=== PATIENT | female | born 1950 | race Caucasian/White ===

== ENCOUNTER → 2017-03-28 | Outpatient (CLI) | payer OTHER ==
[~2017-03-28] MED LIST: ACTEMRA IV; ALPR.5; ALPR.5 PO; ALPR1 PO; AMIT25; CELE200 PO; CEPH500 PO; CLON.5 PO; CONEST.625; CONEST.625 PO; CONESTTC VAG; CYAN1000 IM; CYAN1000I IM; Clonazepam1 MG PO; DESV50 PO; EVOXAC PO; FOLI1; FOLI1 PO; FOLI400 PO; IBUP200 PO; LAMO100 PO; LEVSOD100 PO; LEVSOD50 PO; METPRE4DP PO; METTREX2.5; METTREX2.5 PO; OMEP20ER PO; ORENCIA INJ; PROM25; PYRI100 INJ; QUET100 PO; QUET300 PO; SOLI5 PO; TRAM50; TRAM50 PO; VENL75ER; Vibramycin100 MG PO
== END | disposition home or self-care (01) ==
LOC: PLD 08:04 → LAB SHORT 08:04
DX: L73.9 Follicular disorder, unspecified (principal)
CPT/HCPCS: 88305; 88312

== ENCOUNTER → 2017-05-14 | Outpatient (CLI) | payer OTHER | END | disposition home or self-care (01) | LOC: LAB SHORT 08:14 → PLD 08:14 | DX: D48.5 Neoplasm of uncertain behavior of skin (principal) | CPT/HCPCS: 88305 ==

== ENCOUNTER → 2017-11-26 | Outpatient (CLI) | payer OTHER | LOC: PLD 13:38 → LAB SHORT 13:38 | DX: D48.5 Neoplasm of uncertain behavior of skin (principal) | CPT/HCPCS: 88305 ==

== ENCOUNTER → 2018-10-09 | Outpatient (CLI) | payer OTHER | END | disposition home or self-care (01) | LOC: PLD 08:22 → LAB SHORT 08:22 | DX: D48.5 Neoplasm of uncertain behavior of skin (principal) | CPT/HCPCS: 88305 ==

== ENCOUNTER → 2019-04-14 | Outpatient (CLI) | payer OTHER | END | disposition home or self-care (01) | LOC: PLD 16:00 → LAB SHORT 16:00 | DX: L72.9 Follicular cyst of the skin and subcutaneous tissue, unspecified (principal) | CPT/HCPCS: 88305 ==

== ENCOUNTER → 2019-04-28 | Outpatient (CLI) | payer OTHER | END | disposition home or self-care (01) | LOC: PLD 08:46 → LAB SHORT 08:46 | DX: L57.8 Other skin changes due to chronic exposure to nonionizing radiation (principal) | CPT/HCPCS: 88305 ==

== ENCOUNTER 2019-05-18 18:21 | Inpatient (IN) | payer OTHER ==
[~2019-05-18] VITALS: Ht 160 cm; Wt 54.9 kg
[2019-05-18 18:59] LABS: BASOPHILS ABSOLUTE AUTO 0.04 K/mm3 (0.00-0.23); BASOPHILS PERCENT AUTO 0 % (0-2); EOSINOPHILS ABSOLUTE AUTO 0.09 K/mm3 (0.00-0.68); EOSINOPHILS PERCENT AUTO 1 % (0-6); Hematocrit 40.5 % (33.0-51.0); IMMATURE GRAN ABSOLUTE AUTO 0.04 K/mm3 (0.00-0.10); IMMATURE GRAN PERCENT AUTO 0 % (0-1); LYMPHOCYTES ABSOLUTE AUTO 2.11 K/mm3 (0.84-5.20); LYMPHOCYTES PERCENT AUTO 16 % (21-46); MONOCYTES ABSOLUTE AUTO 1.04 K/mm3 (0.16-1.47); MONOCYTES PERCENT AUTO 8 % (4-13); Mean Corpuscular HGB 32.4 pg (26.0-34.0); Mean Corpuscular HGB Conc 34.6 g/dL (31.5-36.5); Mean Corpuscular Volume 94 fL (80-100); Mean Platelet Volume 9.9 fL (9.1-12.4); NEUTROPHILS ABSOLUTE AUTO 10.32 K/mm3 (1.96-9.15); NEUTROPHILS PERCENT AUTO 76 % (41-73); Platelet Count 274 K/mm3 (150-400); RDW Standard Deviation 41.7 fL (35.1-46.3); Red Blood Cell Count 4.32 M/mm3 (3.80-5.20); White Blood Cell Count 13.64 K/mm3 (4.00-11.30)
[2019-05-18] MEDS ORDERED: CELEBREX200 MG PO (19:06)
[2019-05-18] MEDS ORDERED: QUETIAPINE FUM300 MG PO (19:08)
[2019-05-18] MEDS ORDERED: FOLI1 PO (19:09)
[2019-05-18] MEDS ORDERED: ARMODAFINIL250 MG PO (19:09)
[2019-05-18] MEDS ORDERED: LEUC5 PO (19:09)
[2019-05-18] MEDS ORDERED: CLONAZEPAM1 MG PO (19:09)
[2019-05-18] MEDS ORDERED: LEVSOD50 PO (19:10)
[2019-05-18] MEDS ORDERED: TIOT18 INH (19:11)
[2019-05-18 19:20] LABS: Alanine Aminotransfer (ALT/SGP 18 U/L (12-78); Albumin, Blood 3.8 g/dL (3.4-5.0); Albumin/Globulin Ratio 1.2 (0.8-1.8); Alk Phos 120 U/L (50-136); Anion Gap 7 mmol/L (6-16); Aspartate Aminotrans (AST/SGOT 17 U/L (12-37); Bilirubin, Total 0.7 mg/dL (0.1-1.0); Blood Urea Nitrogen 10 mg/dL (8-24); Bun/Creatinine Ratio 18.1 (12.0-20.0); CO2, Blood 24 mmol/L (21-32); Calcium, Blood 9.4 mg/dL (8.5-10.1); Chloride, Blood 99 mmol/L (98-108); Creatinine, Blood 0.55 mg/dL (0.40-1.00); Globulin, Blood 3.3 g/dL (2.2-4.0); Glomerular Filtration Rate >60 (60-); Glucose, Blood 98 mg/dL (70-99); Sodium, Blood 130 mmol/L (136-145); Total Protein, Blood 7.1 g/dL (6.4-8.2)
[2019-05-18 19:28] LABS: International Normalized Ratio 0.96; Prothrombin Time Results 10.3 Sec (9.7-11.5)
[2019-05-18 20:18] LABS: Source, Urine Clean Catch
[2019-05-18 20:22] LABS: Bilirubin, Urine Neg (Neg); Blood, Urine Neg (Neg); Glucose Qualitative, Urine Neg (Neg); Ketones, Urine 2+ (Neg); Leukocyte Esterase, Urine 2+ (Neg); Nitrite, Urine Neg (Neg); Protein, Urine Neg (Neg); Urobilinogen, Urine NORM (Normal)
[2019-05-18 20:28] LABS: Appearance, Urine Clear (Clear); Color, Urine Yellow (P-Yellow)
[2019-05-18 20:32] LABS: Bacteria Few /hpf; Red Blood Cells, Urine 0-2 /hpf (0-2); Squamous Epithelial Cells Few /hpf (Few)
[2019-05-19 03:54] LABS: BASOPHILS ABSOLUTE AUTO 0.03 K/mm3 (0.00-0.23); BASOPHILS PERCENT AUTO 0 % (0-2); EOSINOPHILS PERCENT AUTO 0 % (0-6); Hematocrit 42.2 % (33.0-51.0); Hemoglobin 13.9 g/dL (11.5-16.0); IMMATURE GRAN ABSOLUTE AUTO 0.04 K/mm3 (0.00-0.10); IMMATURE GRAN PERCENT AUTO 0 % (0-1); LYMPHOCYTES ABSOLUTE AUTO 0.49 K/mm3 (0.84-5.20); LYMPHOCYTES PERCENT AUTO 3 % (21-46); MONOCYTES PERCENT AUTO 4 % (4-13); Mean Corpuscular HGB 31.9 pg (26.0-34.0); Mean Corpuscular HGB Conc 32.9 g/dL (31.5-36.5); Mean Platelet Volume 9.6 fL (9.1-12.4); NEUTROPHILS ABSOLUTE AUTO 16.89 K/mm3 (1.96-9.15); NEUTROPHILS PERCENT AUTO 93 % (41-73); Platelet Count 217 K/mm3 (150-400); RDW Coefficient Variation 12.2 % (11.7-14.2); RDW Standard Deviation 43.4 fL (35.1-46.3); Red Blood Cell Count 4.36 M/mm3 (3.80-5.20); White Blood Cell Count 18.25 K/mm3 (4.00-11.30)
[2019-05-19 03:56] LABS: Mean Corpuscular Volume 97 fL (80-100)
[2019-05-19 04:18] LABS: Alanine Aminotransfer (ALT/SGP 15 U/L (12-78); Albumin, Blood 3.1 g/dL (3.4-5.0); Albumin/Globulin Ratio 1.1 (0.8-1.8); Alk Phos 99 U/L (50-136); Anion Gap 4 mmol/L (6-16); Aspartate Aminotrans (AST/SGOT 26 U/L (12-37); Bilirubin, Total 0.5 mg/dL (0.1-1.0); Blood Urea Nitrogen 8 mg/dL (8-24); CO2, Blood 27 mmol/L (21-32); Calcium, Blood 8.2 mg/dL (8.5-10.1); Chloride, Blood 103 mmol/L (98-108); Creatinine, Blood 0.61 mg/dL (0.40-1.00); Globulin, Blood 2.9 g/dL (2.2-4.0); Glomerular Filtration Rate >60 (60-); Glucose, Blood 138 mg/dL (70-99); Potassium, Blood 3.8 mmol/L (3.5-5.5); Sodium, Blood 134 mmol/L (136-145)
--- NOTE | 2019-05-19 08:52 | NUR ---
DR. OBREGON AT BEDSIDE, GAVE UPDATE ON PT CONDITION, PAIN NOT UNDER CONTROL. PROVIDER STATED ABD BINDER NEED NOT BE TIGHT. WILL HAVE DR. RIVERA ORDER ANXIOLYTIC MEDICATIONS. STILL NPO. STATED PT CAN STATUS CHANGE FROM SURGICAL POINT IF VIEW.
--- NOTE | 2019-05-19 12:00 | NUR ---
REASSESSMENT: DROWSY, AROUSES TO SPEECH. C/O PAIN IN ABDOMEN, MEDICATED PER EMAR. ADDITION OF LORAZEPAM HAS BEEN HELPFUL TO RELIEVE ANXIETY AND ALLOW FOR A LITTLE SLEEP. FAMILY HAS REQUESTED LIMITED VISITORS SO PT CAN REST. NGT WITH MOD BROWN OUTPUT. ATTEMPTED TO WEAN FROM O2, BUT PT DESATS TO MID-80'S WITHOUT O2 WHILE SLEEPING. GENTLY REPOSITIONING PT CAN TOLERATE. GOOD URINE OUTPUT.
--- NOTE | 2019-05-19 16:50 | NUR ---
REASSESSMENT: FENTANYL INCREASED TO 50 MCG D2AGONI FOR BETTER PAIN CONTROL. REPOSITIONING PT CAN TOLERATE. GOOD URINE OUTPUT. LUNGS CLEAR, ON O2 @ 2 L/MIN NC SHE IS SLEEPING INTERMITTENTLY AND STILL DESATS TO MID-80'S WITHOUT IT. ENCOURAGING C&DB, BUT STATED IS TOO PAINFUL. C/O HEADACHE; EDUCATED THAT THIS IS MOST LIKELY A SIDE EFFECT OF ONDANSETRON ADMINISTRATION BP AND HR ARE WNL, AND ALSO MAY BE D/T LACK OF RESTFUL SLEEP. IS USING SWAB SPONGES WITH WATER INDEPENDENTLY.
--- NOTE | 2019-05-19 17:08 | NUR ---
PT WITH ONGOING 9/10 ABD PAIN DESPITE FENTANYL 50 MCG IV [id number]. SPOKE TO DR. RIVERA BY PHONE TO REQUEST ADDITIONAL OR CHANGE IN PAIN MEDICATION. DR. RIVERA WILL ORDER INCREASE IN FENTANYL DOSING.
--- NOTE | 2019-05-19 18:52 | NUR ---
SHIFT SUMMARY: AWAKE AND ALERT. LAST PAIN MEDS GIVEN AT 1830, EASIER FOR HER TO C&DB AT THIS TIME. DAUGHTER LUCIANA AT BEDSIDE. OXYGEN AT 2 L/MIN NC, SAT 97%, C/O STUFFY NOSE. NO FURTHER BLEEDING FROM ABD INCISION, WOUND VAC IN PLACE. FRIEDMAN WITH GOOD URINE OUTPUT. BS HYPOACTIVE; PT EDUCATED TO NOTIFY NURSING WHEN SHE STARTS PASSING GAS, VERBALIZED UNDERSTANDING. ADEQUATE OUTPUT FROM NGT, LIQUID BROWN. NAUSEA CONTROLLED AT THIS TIME. PLAN IS POSSIBLE STATUS CHANGE TOMORROW.
--- NOTE | 2019-05-19 20:00 | NUR ---
ASSUMED CARE OF PT AT 1915. REPORT RECEIVED AT BEDSIDE. PT PRESENTS IN BED. GAURDING HER ABDOMEN. SOMEWHAT ANXIOUS. DAUGHTER AT BEDSIDE. PT ENCOURAGED TO COUGH AND DEEP BREATHE. EXPLAINED RATIONALE AND BENIFITS. WILL REVIEW CHART AND PLAN OF CARE FOR THIS PT.
--- NOTE | 2019-05-19 23:01 | NUR ---
PT HAS BEEN MEDICATED WITH 75 MCG'S FENTANYL, AND HAS RECENTLY BEEN MEDICATED WITH 1 MG ATIVAN FOR HER REQUESTS TO HELP HER SLEEP, AND TO EASE HER ANXIOUSNESS. THIS AFFECTIVE. FIELD START IV AT LEFT WRIST REMOVED SECONDARY TO PT STATING TENDER WITH FLUSH. PLACED 18 GAUGE / 8CM POWERGLIDE IN LEFT UA. PT TOLERATED THIS WELL. GOOD BLOOD RETURN. PT TOLERATES TURNS FAIR. NGT TO LIWS. WATERY LIGHT GREEN/BROWN SECRETIONS RETURNED. PT DOES HAVE COMPLAINT OF HEADACHE EARLIER. WILL CONTINUE TO MONITOR.
--- NOTE | 2019-05-20 03:27 | NUR ---
PT CALLS HER TO COMPLAIN THAT SHE IS NOT RECEIVING PAIN MEDICATIONS ON A SCHEDULE INSTEAD OF PRN. DOES COME IN TO HOSPITAL. HE STATES THAT PT WAS CONFUSED SOMEWHAT ON THE THE TELEPHONE WITH HIM CLAIMING THAT SHE HAD TOLD HIM THAT SHE WAS RECEIVING METHAMPHETAMINES. PT HAS RECEIVED 100 MCG FENTANYL FOR A PAIN SHE STATES IS 10/10. TO AID PT IN KEEPING TRACK OF HOW OFTEN SHE CAN REQUEST MEDS, NOTE MADE OF TIME SHE RECEIVES DOSE OF FENTANYL, AND ZOFRAN. THIS ALSO SHOWN TO PT'S , AND HE ACKNOWLEDGES THAT PT HAS HAD ISSUES WITH CONFUSION THE PREVIOUS ABDOMINAL SURGERY SHE HAD, AND THAT THE CONFUSION PRESENTED THE SAME. WILL CLOSELY MONITOR PT FOR SAFETY. HAS OPTED TO SPEND THE NIGHT WITH PT. OF NOW, PT SLEEPING WHILE IN RECLINER CHAIR BESIDE HER BED.
[2019-05-20 03:47] LABS: BASOPHILS ABSOLUTE AUTO 0.04 K/mm3 (0.00-0.23); BASOPHILS PERCENT AUTO 0 % (0-2); EOSINOPHILS ABSOLUTE AUTO 0.08 K/mm3 (0.00-0.68); EOSINOPHILS PERCENT AUTO 1 % (0-6); Hemoglobin 12.2 g/dL (11.5-16.0); IMMATURE GRAN ABSOLUTE AUTO 0.04 K/mm3 (0.00-0.10); IMMATURE GRAN PERCENT AUTO 0 % (0-1); LYMPHOCYTES ABSOLUTE AUTO 0.78 K/mm3 (0.84-5.20); LYMPHOCYTES PERCENT AUTO 7 % (21-46); MONOCYTES ABSOLUTE AUTO 1.01 K/mm3 (0.16-1.47); MONOCYTES PERCENT AUTO 9 % (4-13); Mean Corpuscular HGB 32.4 pg (26.0-34.0); Mean Corpuscular Volume 98 fL (80-100); Mean Platelet Volume 9.4 fL (9.1-12.4); NEUTROPHILS PERCENT AUTO 84 % (41-73); Platelet Count 224 K/mm3 (150-400); RDW Coefficient Variation 12.5 % (11.7-14.2); RDW Standard Deviation 44.8 fL (35.1-46.3); Red Blood Cell Count 3.76 M/mm3 (3.80-5.20); White Blood Cell Count 11.75 K/mm3 (4.00-11.30)
[2019-05-20 04:05] LABS: Alanine Aminotransfer (ALT/SGP 11 U/L (12-78); Albumin, Blood 2.5 g/dL (3.4-5.0); Albumin/Globulin Ratio 0.9 (0.8-1.8); Alk Phos 72 U/L (50-136); Anion Gap 5 mmol/L (6-16); Aspartate Aminotrans (AST/SGOT 12 U/L (12-37); Bilirubin, Total 0.5 mg/dL (0.1-1.0); Blood Urea Nitrogen 7 mg/dL (8-24); Bun/Creatinine Ratio 9.7 (12.0-20.0); CO2, Blood 30 mmol/L (21-32); Calcium, Blood 8.3 mg/dL (8.5-10.1); Chloride, Blood 102 mmol/L (98-108); Creatinine, Blood 0.72 mg/dL (0.40-1.00); Globulin, Blood 2.8 g/dL (2.2-4.0); Glomerular Filtration Rate >60 (60-); Glucose, Blood 100 mg/dL (70-99); Potassium, Blood 3.8 mmol/L (3.5-5.5); Sodium, Blood 137 mmol/L (136-145); Total Protein, Blood 5.3 g/dL (6.4-8.2)
--- NOTE | 2019-05-20 04:43 | NUR ---
PT STATES HER ABDOMINAL PAIN 10/18. WAS NOTED TO BE RUBBING HER NECK. WARM PACK PROVIDED FOR NECK FOR COMFORT. 75 MCG'S FENTANYL GIVEN. PT CURRENTLY SLEEPING. AT BEDSIDE. NGT PATENT TO LIYASMINE. SAME DRAINAGE NOTED PREVIOUS. WILL CONTINUE TO MONITOR.
--- NOTE | 2019-05-20 06:11 | NUR ---
PT STATES THAT WARM PACK HAS HELPED HER NECK DISCOMFORT. HAVE PROVIDED K PAD FOR PT COMFORT. DID RELEASE ABDOMINAL BINDER THIS LEAD BASED PAINT TECHNICIAN. PT TURNED TO HER RIGHT SIDE. DEMONSTRATES THAT SHE IS FEARFUL OF ANY MOVEMENTS IN BED. TEACHING DONE ON IMPORTANCE OF MOVING IN BED, AND THAT EARLY MOBILIZATION IS IMPORTANT DURING RECOVERY PROCESS POST OP. HAVE PROVIDED INCENTIVE SPIROMETER FOR PT TO USE. SHE IS ABLE TO ACHIEVE BETWEEN 500-600 ML FOR 3 TO 4 ATTEMPTS, THEN APPROX 500 ML FOR EACH ATTEMPT AFTERWARDS FOR A TOTAL OF 10 BREATHS. WILL CONTINUE TO REINFORCE TEACHING. WILL CONTINUE TO MONITOR PT, AND WILL REPORT OFF TO ONCOMING RN.
--- NOTE | 2019-05-20 07:35 | NUR ---
REC'D BEDSIDE REPORT FROM PILY BUNN. WHILE DOING REPORT, DR OBREGON IN TO ASSESS PT. DISCUSSED CONTINUED ABD PAIN DESPITE FREQUENT DOSES OF FENTANYL IVP. WILL START ORGANIC EXTRACTIONS TECHNICIAN TODAY. DISCUSSED RESTARTING HOME MEDS AND POSSIBLE STATUS CHANGE. SEE NEW ORDERS.
--- NOTE | 2019-05-20 08:59 | NUR ---
PETROGRAPHER SET UP AND PT EDUCATED ON USE. PT APPEARS SLIGHTLY SLEEPY AND MORE COMFORTABLE AFTER INITIAL BOLUS DOSE. PETROGRAPHER HANDLE IN PT'S HAND. CALL LIGHT WITHIN REACH.
--- NOTE | 2019-05-20 10:13 | NUR ---
ASSESSED PT AND CURRENT PAIN LEVEL. PT SLEEPING UPON ARRIVAL. PT REPORTS SHE IS MORE COMFORTABLE AND PAIN IS DOWN FROM A 9/10 TO A 7/10, AND REPORTS THAT THE HEADACHE PAIN WELL ABD PAIN HAS IMPROVED. CALL LIGHT WITHIN REACH.
--- NOTE | 2019-05-20 10:38 | NUR ---
DR OLIVEROS HERE TO ASSESS PT. UPDATED WITH PT'S CURRENT STATUS. DISCUSSED OBTAINING DIETARY CONSULT IT IS UNCERTAIN WHEN ENTERIC FEEDINGS CAN RESTART AT THIS TIME. ALSO DISCUSSED RESTARTING PT'S HOME MEDS (MORE SPECIFICALLY SEROQUEL/THYROID). PHYSICAL THERAPY TO WORK WITH PT IN THE BED, SHE REMAINS VERY GAURDED AND STILL WORKING ON GETTING PAIN UNDER CONSISTENT CONTROL. SEE NEW ORDERS.
--- NOTE | 2019-05-20 12:50 | NUR ---
CALLED AND SPOKE WITH DR OBREGON, RE: PAIN MANAGEMENT. PT DID WELL WITH USE OF OUTCOME ANALYST, HOWEVER, PT WAS CAPPED OUT ON THE 200MCG 4 HR LIMIT. AFTER DISCUSSION WITH DR OBREGON RE: PAIN, INCREASING 4 HR LIMIT TO 300MCG/4 HR.
--- NOTE | 2019-05-20 18:46 | NUR ---
SHIFT SUMMARY: PT IS ALERT AND ORIENTED THIS EVENING. PT REMAINS ANXIOUS AT TIMES, HOWEVER, SEEMS TO CALM WITH A LITTLE MORAL SUPPORT AT THE BEDSIDE, WHETHER IT BE STAFF OR FAMILY. PT REPORTS 7-9/10 PAIN, DESPITE CHANGING HER OVER TO A FENTANYL RIM FIRE CHARGER OPERATOR PUMP. PT STATES, "I ONLY USE IT I NEED IT." EDUCATED AGAIN ON USE OF RIM FIRE CHARGER OPERATOR, SHE FELT LIKE SHE WAS GOING TO "USE TOO MUCH." PT ABLE TO MINIMALLY ASSIST WITH TURNS IN THE BED. MOEVMENT LIMITATIONS ARE MORE RELATED TO PAIN THAN WEAKNESS. PT ENCOURAGED T/O SHIFT TO TURN/COUGH/DEEP BREATH. LUNGS ARE CLEAR BUT DIMINISHED IN THE THE BILATERAL BASES. SP02 SATS >90% ON 2L 02. PT RECENTLY DECREASED 1L 02 SATS WERE 99% ON 2L AND PT DOES NOT WEAR 02 AT HOME. HR REGULAR, SR-80'S RANGE. SCD'S IN PLACE TO LE'S. LR INFUSING AT TKO RATE AND PT STARTED ON PPN UNTIL SHE IS ABLE TO START EATING AGAIN. ABD MODERATLY DISTENDED/SLIGHTLY FIRM/VERY TENDER TO LIGHT PALPATION. PT IS VERY GAURDED OF ABD AND FEARFUL OF PAIN/MOVEMENT. NO FLATUS THIS SHIFT. MIDLINE ABD DRSG IN PLACE WITH 3 AREAS OF BLOODY DRAINAGE MARKED FROM YESTERDAY, UNCHANGED. FRIEDMAN CATH DRAINING CLEAR, YELLOW URINE TO GRAVITY, 725ML OUT THIS SHIFT.
--- NOTE | 2019-05-20 19:33 | NUR ---
REPORTED OFF TO PILY ROB WHOM IS ASSUMING CARE OF THIS PT.
--- NOTE | 2019-05-20 20:00 | NUR ---
ASSUMPTION OF CARE: PT ALERT, ORIENTED, AND AWAKE. AT BEDSIDE. VSS. IN SR. HR IN THE 80S. LUNG SOUNDS CLEAR, DIM IN BASES. SPO2 >90% ON 2L NC BT PRESENT, HYPOACTIVE. PT HAS MIDLINE ABD INCISION WITH PORTABLE WOUNDVAC ATTACHED. SOME SEROSANGIOUNESS DRAINAGE. HAS BEEN OUTLINED AND UNCHANGED FROM PREVIOUS SHIFT. NGT IN PLACE TO LIS. 300MLS OF GREEN/BROWN DRAINAGE. PIV IN RAC INFUSING WITH GROCERY STORE COURTESY CLERK FENTALNYL AND LR. PG IN ROMEO INFUSING WITH PPN. PT MAIN COMPLAINT HAS BEEN PAIN, ESPECIALLY WITH REPOSITIONING. EDUACTED ON USE OF GROCERY STORE COURTESY CLERK. FRIEDMAN IN PLACE DRAINING YELLOW URINE. WILL CONTINUE TO MONITOR
--- NOTE | 2019-05-20 22:00 | NUR ---
PT TRANSFERRED TO 334 VIA BED. REPORT GIVEN TO PILY CRANDALL.
--- NOTE | 2019-05-20 22:00 | NUR ---
PATIENT IS A ICU TRANSFER TO THE FLOOR. SHE ARRIVED VIA GURNEY AND WAS MOVED TO BED USING A SLIDER SHEET. SHE IS AOX3, FRAIL APPEARING LADY. DAUGHTER IS AT BEDSIDE. SHE HAS NG TUBE TO THE LEFT NOSTRIL, SECURED, HOOKED HER SUCTION LOW INTERMINTENT. SET UP SUCTION FOR ORAL, TO REMOVE SECREATIONS THAT SHE MIGHT COUGH UP. IV LR RUNNING AT 15ML/HR, ALONG WITH CAREER MANAGER FENTANYL PUMP, WITH 10ML PER HOUR SETTING AND 10ML BOLUS. PPN RUNNING ON ANOTHER PUMP INTO POWERGLIDE. FRIEDMAN TO GRAVITY WITH DARK YELLOW URINE. ABDOMIN WITH MIDLINE INCISION COVERED WITH WOUND VAC WITH TWO OLD DRAINAGE SPOTS THAT ARE MARKED IN BLACK. WOUND VAC IS THE SMALL PORTABLE NEW ONES. PATIENT MOVES VERY SLOW AND LIKES TO STAY IN POSITION, ABDOMINAL BINDER IS AT BEDSIDE FOR WHEN SHE GETS OUT OF BED. FINISHED SETTING UP ALL THE DEVICES AND STARTED NEW BAG OF FENTANYL IN CAREER MANAGER PUMP. GOT HER SETTING IN ROOM AND CALL LIGHT GIVEN.
--- NOTE | 2019-05-21 03:00 | NUR ---
PATIENT CALLED REPORTING THAT SHE FEELS LIKE SHE HAS TO HAVE A BM. SHE WANTED TO GET UP TO [facility]. THEREFORE ASSISTED HER IN GETTING UP. SHE MOVED AT A VERY SLOW PACE SPLINTING HER ABDOMIN FOR PAIN CONTROL. ONCE ON SIDE OF BED SHE WAS ABLE TO STAND UP WITH ONE ASSIST BUT COULD NOT STAND STRAIGHT UP. SHE BABY STEPPED TO THE BSC WELL, GOOD STREGNTH IN THE LEGS. SHE DID NOT HAVE A BM BUT DID PASS SOME GAS. ASSISTED HER BACK INTO BED WITH A CRADLE METHODS TO PREVENT STOMACH STRAIN. PILLOWS UNDER LEGS, ALL HER CORDS UNTANGLED AND SUCTION AND CALL LIGHT GIVEN.
[2019-05-21 05:43] LABS: BASOPHILS ABSOLUTE AUTO 0.01 K/mm3 (0.00-0.23); BASOPHILS PERCENT AUTO 0 % (0-2); EOSINOPHILS ABSOLUTE AUTO 0.34 K/mm3 (0.00-0.68); EOSINOPHILS PERCENT AUTO 6 % (0-6); Hematocrit 34.4 % (33.0-51.0); Hemoglobin 11.2 g/dL (11.5-16.0); IMMATURE GRAN ABSOLUTE AUTO 0.01 K/mm3 (0.00-0.10); IMMATURE GRAN PERCENT AUTO 0 % (0-1); LYMPHOCYTES ABSOLUTE AUTO 0.57 K/mm3 (0.84-5.20); LYMPHOCYTES PERCENT AUTO 10 % (21-46); MONOCYTES ABSOLUTE AUTO 0.83 K/mm3 (0.16-1.47); MONOCYTES PERCENT AUTO 14 % (4-13); Mean Corpuscular HGB 31.8 pg (26.0-34.0); Mean Corpuscular HGB Conc 32.6 g/dL (31.5-36.5); Mean Corpuscular Volume 98 fL (80-100); Mean Platelet Volume 10.1 fL (9.1-12.4); NEUTROPHILS ABSOLUTE AUTO 4.08 K/mm3 (1.96-9.15); NEUTROPHILS PERCENT AUTO 70 % (41-73); Platelet Count 206 K/mm3 (150-400); Red Blood Cell Count 3.52 M/mm3 (3.80-5.20); White Blood Cell Count 5.84 K/mm3 (4.00-11.30)
[2019-05-21 05:55] LABS: Anion Gap 4 mmol/L (6-16); Blood Urea Nitrogen 12 mg/dL (8-24); CO2, Blood 33 mmol/L (21-32); Calcium, Blood 8.3 mg/dL (8.5-10.1); Chloride, Blood 96 mmol/L (98-108); Creatinine, Blood 0.52 mg/dL (0.40-1.00); Glomerular Filtration Rate >60 (60-); Glucose, Blood 116 mg/dL (70-99); Phosphorus, Blood 2.1 mg/dL (2.5-4.9); Sodium, Blood 133 mmol/L (136-145); Triglycerides 88 mg/dL (30-160)
--- NOTE | 2019-05-21 08:03 | NUR ---
SHIFT SUMMARY: CLYDE WAS A ICU TRANSFER LAST NIGHT. SHE HAD A SBO WITH SURGICAL INTERVENTION OF BOWEL RESECTION. SHE HAS MIDLINE INCISION THAT IS HOOKED TO THE SMALL PROTABLE WOUND VACS, THAT IS RUNNING WELL. DRESSING IS WELL INTACT WITH TWO SMALL DRAINAGE SPOTS MARKED IN BLACK AND UNCHANGED. SHE HAS NG TUBE HOOKED TO SUCTION WITH GREEN BILE OUTPUT OF 400CC LAST NIGHT. SHE HAS ORAL SUCTION WELL TO PREVENT MUCUS BUILDUP. FRIEDMAN WAS NOT DISCHARGE THIS AM DUE TO PATIENT UNSURE SHE IS ABLE TO GET ALL THE TIME TO BSC. PAIN IS MILDLY MANAGED WITH FACILITY WORKER FENTANYL THE PATIENT IS AFRAID TO USE THE BOLUS DOSE FOR MOVMENT. SHE DOES SPLINT ABDOMIN FOR PAIN. PPN CONTINUES TO INFUSE TO LEFT POWERGLIDE WITH NO PROBLEMS. LR RUNNING AT 15ML/HR WITH FACILITY WORKER PUMP. SHE DID GET UP TWICE TO THE BSC WITH 1 PERSON ASSIST, AND WAS ABLE TO PASS LITTLE GAS, NO BOWEL MOVMENT. SHE HAD NAUSEA X1 WHICH ZOFRAN WAS GIVEN. SHE REMAINED COOPERATIVE AND HER ANXIETY WAS BETTER WITH HER DAUGHTER AT BEDSIDE. WILL REPORT TO DAYSHIFT.
[2019-05-21] MEDS ORDERED: ALBU90OI INH (08:08)
[2019-05-21] MEDS ORDERED: CYANOCOBAL1000 MCG/1 IM (08:12)
[2019-05-21] MEDS ORDERED: Prozac20 MG PO (08:14)
[2019-05-21] MEDS ORDERED: OMEP20ER PO (08:19)
--- NOTE | 2019-05-21 11:15 | NUR ---
0930 PT HAD CATH REMOVED BY GROOMING SALON MANAGER. 1100 PT UP TO BS WITH 350 OUT.
--- NOTE | 2019-05-21 15:23 | NUR ---
PT ARRIVED TO UNIT FROM MED FLOOR THIS AFTERNOON. A&OX3. HAS BEEN UP TO BSC AND VOIDED. MOD TWO PERSON ASSIST TO REPOSITION BACK IN BED. DR OBREGON IN TO SEE PT. HOOKED NG BACK UP TO LIS FOR NIGHT. CALL LIGHT AND ACCOUNTING PRACTICE MANAGER IN REACH.
--- NOTE | 2019-05-21 16:05 | NUR ---
DR RIVERA IN TO SEE PT.
--- NOTE | 2019-05-21 17:04 | NUR ---
SUMMARY NO ACUTE CHANGES SINCE ARRIVING TO FLOOR. PT REPORTS TIRED AND RATED PAIN 8/10. ENCOURAGED STUDY DIRECTOR USE, WHICH PT DEMONSTRATED. NG DRAINING DARK GREEN FLUID TO LIS. CALL LIGHT AND STUDY DIRECTOR BUTTON IN REACH.
--- NOTE | 2019-05-22 04:21 | NUR ---
SHIFT SUMMARY HAS RESTED WELL, GOOD INTAKE AND OUTPUT NOTED. PAIN MANAGED WITH BOTTLING ROOM WORKER FENTANYL CONT AND ON DEMAND. REPOSITIONS SELF IN BED, BLE ELEVATED ON PILLOWS FOR COMFORT. NG TUBE IS PATENT, PLACEMENT VERIFIED WITH AIR BOLUS AND RESIDUAL CHECK. STORM DRESSING TO MIDLINE WITH SHADOWING MARKED IS PATENT, DRESSING IS FLUSH WITH SKIN AND PUMP IS FUNCTIONING WELL. DENIES FURTHER NEEDS OR WANTS AT THIS TIME. SAFETY MEASURES IN PLACE. WILL GIVE HAND OFF TO ONCOMING SHIFT USING SBAR DURING BEDSIDE REPORT.
[2019-05-22 06:57] LABS: Magnesium, Blood 2.2 mg/dL (1.6-2.4); Phosphorus, Blood 3.2 mg/dL (2.5-4.9)
--- NOTE | 2019-05-22 17:06 | NUR ---
SHIFT SUMMARY PT A&O POST OP DAY #4, PT STILL ON CASH APPLICATIONS ASSOCIATE (FEYNTNAL) FOR PAIN MANGEMENT. PT BILATERAL POWER GLIDES IN PLACE IN UPPER ARMS. PT HAS NG TUBE IN PLACE AND DRAINING BROWN/GREEN FLUID. STORM DRESSING TO MIDLINE OLD DRAINAGE MARKED ON DRESSING NO CHANGES THIS SHIFT. PT HAS METHALEX TO COCCYX PREVENTATIVE. PT AMBULATED WITH PT THIS SHIFT AND TOLORATED WELL. PT PERFORMED OWN ORAL CARE AND TOLORATED ICE CHIPS. PT SUZIE ANY NAUSEA. PT HAS CALL LIGHT WITH IN REACH AND WILL COUNTINE TO MONITOR WILL REPORT TO ONCOMING SHIFT. PT STILL NOT PASSING GAS BOWEL SOUNDS PRESENT, HYPO-ACTIVE IN THE UPPER QUADRENTS.
[2019-05-23 05:11] LABS: Magnesium, Blood 2.2 mg/dL (1.6-2.4)
--- NOTE | 2019-05-23 05:49 | NUR ---
SHIFT SUMMARY: CLYDE IS POD5 FOR A SIGMOID TAKEDOWN. SHE IS TOLERATING ICE CHIPS AND POPSICLES. NG TUBE TO LOW INTERMITTENT SUCTION PRODUCING DARK GREEN/BROWN OUTPUT. FUELS ENGINEER PATENT. O2 VIA NC AT 1 LPM, CONTINUOUS BIOX IN PLACE. POWERGLIDE TO BILATERAL UPPER ARMS. SHE USES THE CALL LIGHT APPROPRIATELY. SHE IS A ONE PERSON ASSIST TO THE BEDSIDE COMMODE. DRESSING WITH SMALL AMOUNT OF OLD DRAINAGE. STORM PATENT. SHE IS ABLE TO MAKE HER NEEDS KNOWN. SHE RESTED COMFORTABLY FOR MOST OF THE SHIFT. SHE IS LYING IN BED WITH HER CALL LIGHT IN REACH. WILL REPORT TO DAY SHIFT RN.
--- NOTE | 2019-05-23 17:07 | NUR ---
SHIFT SUMMARY PT A&OX4, VSS, RA, BIOX BEDSIDE. POD5 SB RESECT, MIDLINE STORM WNL, PASSING FLATUS. AMBULATING INDEPENDENT TO BRP AND HALLWAYS; UP TO CHAIR. PAIN MANAGED WITH HOSIERY PAIRER FENT. SWATHI POWERGLIDES FLUSH/INFUSING WELL. TPN @ 96 MLS/HR. NG TUBE REMOVED TODAY, SEUN ICE CHIPS AND POPSICLES, DENIES N&V. VOIDING WELL. WILL REPORT TO ONCOMING NOC RN.
--- NOTE | 2019-05-24 06:04 | NUR ---
SHIFT SUMMARY PT RESTED WELL T/O NIGHT. AAOX4. DISCOMFORT CONTROLLED WITH STILL WORKER HELPER USE. NO NAUSEA/EMESIS TOLERATING SIPS CLEARS. ABD INCISION WITH STORM X2 SCANT DRY SS, NO INCREASE IN DRAINAGE THIS SHIFT. IVF + PPN PER ORDERS. UP TO BSC SBA TO ASSIST WITH CORDS. TRANSITION TO PO PAIN CONTROL TODAY. NO ACUTE CHANGES OVER NIGHT. CALL LIGHT WITHIN REACH AT THIS TIME PT RESTS.
[2019-05-24 07:56] LABS: BASOPHILS ABSOLUTE AUTO 0.03 K/mm3 (0.00-0.23); BASOPHILS PERCENT AUTO 1 % (0-2); EOSINOPHILS ABSOLUTE AUTO 0.68 K/mm3 (0.00-0.68); EOSINOPHILS PERCENT AUTO 11 % (0-6); Hematocrit 32.8 % (33.0-51.0); Hemoglobin 10.9 g/dL (11.5-16.0); IMMATURE GRAN ABSOLUTE AUTO 0.04 K/mm3 (0.00-0.10); IMMATURE GRAN PERCENT AUTO 1 % (0-1); LYMPHOCYTES ABSOLUTE AUTO 0.89 K/mm3 (0.84-5.20); LYMPHOCYTES PERCENT AUTO 14 % (21-46); MONOCYTES ABSOLUTE AUTO 0.98 K/mm3 (0.16-1.47); MONOCYTES PERCENT AUTO 16 % (4-13); Mean Corpuscular HGB 32.1 pg (26.0-34.0); Mean Corpuscular HGB Conc 33.2 g/dL (31.5-36.5); Mean Corpuscular Volume 97 fL (80-100); Mean Platelet Volume 9.3 fL (9.1-12.4); NEUTROPHILS ABSOLUTE AUTO 3.64 K/mm3 (1.96-9.15); NEUTROPHILS PERCENT AUTO 58 % (41-73); Platelet Count 260 K/mm3 (150-400); RDW Coefficient Variation 12.2 % (11.7-14.2); RDW Standard Deviation 43.2 fL (35.1-46.3); White Blood Cell Count 6.26 K/mm3 (4.00-11.30)
[2019-05-24 08:14] LABS: Alanine Aminotransfer (ALT/SGP 24 U/L (12-78); Albumin, Blood 2.4 g/dL (3.4-5.0); Albumin/Globulin Ratio 0.7 (0.8-1.8); Alk Phos 95 U/L (50-136); Anion Gap 3 mmol/L (6-16); Aspartate Aminotrans (AST/SGOT 25 U/L (12-37); Bilirubin, Total 0.3 mg/dL (0.1-1.0); Blood Urea Nitrogen 16 mg/dL (8-24); CO2, Blood 32 mmol/L (21-32); Calcium, Blood 8.6 mg/dL (8.5-10.1); Chloride, Blood 101 mmol/L (98-108); Creatinine, Blood 0.59 mg/dL (0.40-1.00); Globulin, Blood 3.4 g/dL (2.2-4.0); Glomerular Filtration Rate >60 (60-); Glucose, Blood 105 mg/dL (70-99); Potassium, Blood 3.8 mmol/L (3.5-5.5); Sodium, Blood 136 mmol/L (136-145); Total Protein, Blood 5.8 g/dL (6.4-8.2)
--- NOTE | 2019-05-24 15:02 | NUR ---
SHIFT SUMMARY PT A&OX4, VSS, RA, POD6 SB RESECT, STORM MIDLINE WNL, PASSING FLATUS. AMBULATING TO BRP AND HALLWAYS; UP TO CHAIR. DC'D TPN; SEUN FULL LIQ DIET, DENIES N&V. VOIDING WELL. DC'D GUEST SERVICE REPRESENTATIVE; PAIN MANAGED WITH 5-10 MG NORCO. WILL REPORT TO ONCOMING NOC RN.
--- NOTE | 2019-05-25 04:42 | NUR ---
PATIENT SLEPT FOR OVER 6 HOURS. SHE STATED THAT SHE WAS WELL RESTED. SHE ALSO WOKE WITH 8/10 ABDOMINAL PAIN. ONE NORCO GIVEN FOR PAIN. UP TO THE BATHROOM INDEPENDENTLY, VOIDING WELL. NO ACUTE CHANGES.
--- NOTE | 2019-05-25 08:19 | NUR ---
DOCTOR ROUNDING ROUNDED WITH DR. OBREGON THIS MORINING. STORM DRESSING WAS REMOVED AND 3M DRESSING PLACED. АНДРЕЙ REMAIN IN PLACE. PLAN TO CONTINUE WITH FULL LIQUID DIET SLOWLY AND TOLERATED. PLAN FOR SUPPOSITORY TODAY TO STIMULATE BOWEL MOVEMENT. WILL CONTINUE TO MONITOR. PT REPORTS SHE IS COMFORTABLE AND WAS WIDE AWAKE DURING ROUNDING.
--- NOTE | 2019-05-25 11:33 | NUR ---
SHIFT ASSESSMENT SHIFT ASSESSMENT BY MORENA KELLOGG STUDENT NURSE, WAS REVIEWED, THIS RN AGREES WITH DOCUMENTATION. ABD IS MILDLY DISTENDED, TENDER BUT SOFT. PT IS ALERT, ORIENTED AND INDEPENDENT. PAIN MANAGED WITH PO MEDICATION. VSS. WILL MONITOR UNTIL REPORT TO ONCOMING RN.
--- NOTE | 2019-05-25 13:25 | NUR ---
DOCTOR ROUNDS DR. OBREGON ROUNDED ON PT. DISCUSSED PAIN MANAGEMENT CONCERNS; PT WOULD LIKE TO HAVE 1 NORCO EVERY 2 HOURS INSTEAD OF [address] OBREGON ADDED ALEVE TO PAIN MEDICATION TO DECREASE PAIN BETWEEN DOSES OF NORCO. PT WAS UNABLE TO PASS STOOL AFTER HAVING A SUPPOSITORY; WILL GIVE MIRALAX PER ORDER.
--- NOTE | 2019-05-25 15:56 | NUR ---
PT HAS PASSED 2 SMALL MUCOID STOOLS, WHICH APPEAR TO BE A RESULT OF SUPPOSITORY. WILL CONTINUE TO MONITOR.
--- NOTE | 2019-05-25 18:15 | NUR ---
SHIFT SUMMARY: PATIENT IS ALERT AND ORIENTED X4. SHE IS ABLE TO AMBULATE AROUND THE ROOM INDEPENDANTLY. SHE USES THE CALL LIGHT APPROPRIATELY. HER VITALS HAVE BEEN WITHIN NORMAL LIMITS DURING SHIFT. HER PAIN IS AT PEAK WHEN SHE IS REPOSITIONING OR WALKING FREQUENTLY. HER DRESSING ON HER ABD IS D/C/I. THE PAIN MEDICATIONS SHE IS ORDERED ARE ABLE TO KEEP HER PAIN UNDERCONTROL EVIDENCED BY THE PAIN SCALES. SHE HAS HAD HER BY HER BEDSIDE FOR MOST OF THE DAY. BOTH ARE A VERY SWEET COUPLE. PATIENT HASN'T HAD A BOWEL MOVEMENT YET, BUT THE NURSE AND I HAVE PROVIDED BOWEL CARE THROUGHOUT THE SHIFT. WE HAVE ALSO ENCOURAGED FLUID INTAKE AND WALKING TOLERATED. THE PATIENT IS HOPING TO GO HOME BY TOMORROW IF SHE IS ABLE TO HAVE A BOWEL MOVEMENT. WILL CONTINUE TO MONITOR PATIENT.
--- NOTE | 2019-05-25 19:03 | NUR ---
SHIFT SUMMARY PAIN HAS BEEN MANAGED WITH PO PAIN MEDICATION AND ALEVE. PT IS AMBULATING AND PASSING FLATUS. SMALL AMOUNTS OF MUCOID STOOL PASSED. WILL CONTINUE TO MONITOR.
--- NOTE | 2019-05-26 03:50 | NUR ---
SHIFT SUMMARY POD 7 SBO PARTIAL RESECTION. AA0X4 VSS. PT AMBULATING IND. REPORTS PASSING GAS, HAD ONE BM DURING SHIFT. MEDIUM LOOSE. PT REPORTS SOME BLOATED FEELING. DRESSING CDI. PT RESTING IN BED DURING SHIFT. NO REPORTS OF PAIN. POSSIBLE DISCHARGE TODAY IF BOWELS REMAIN ACTIVE.
[2019-05-26 04:57] LABS: BASOPHILS ABSOLUTE AUTO 0.05 K/mm3 (0.00-0.23); BASOPHILS PERCENT AUTO 1 % (0-2); EOSINOPHILS ABSOLUTE AUTO 0.82 K/mm3 (0.00-0.68); EOSINOPHILS PERCENT AUTO 16 % (0-6); Hematocrit 36.3 % (33.0-51.0); Hemoglobin 12.1 g/dL (11.5-16.0); IMMATURE GRAN ABSOLUTE AUTO 0.12 K/mm3 (0.00-0.10); IMMATURE GRAN PERCENT AUTO 2 % (0-1); LYMPHOCYTES ABSOLUTE AUTO 1.05 K/mm3 (0.84-5.20); LYMPHOCYTES PERCENT AUTO 20 % (21-46); MONOCYTES ABSOLUTE AUTO 0.91 K/mm3 (0.16-1.47); MONOCYTES PERCENT AUTO 17 % (4-13); Mean Corpuscular HGB 31.8 pg (26.0-34.0); Mean Corpuscular HGB Conc 33.3 g/dL (31.5-36.5); Mean Corpuscular Volume 95 fL (80-100); Mean Platelet Volume 9.7 fL (9.1-12.4); NEUTROPHILS ABSOLUTE AUTO 2.32 K/mm3 (1.96-9.15); NEUTROPHILS PERCENT AUTO 44 % (41-73); Platelet Count 300 K/mm3 (150-400); RDW Standard Deviation 41.2 fL (35.1-46.3); Red Blood Cell Count 3.81 M/mm3 (3.80-5.20); White Blood Cell Count 5.27 K/mm3 (4.00-11.30)
[2019-05-26 05:17] LABS: Alanine Aminotransfer (ALT/SGP 67 U/L (12-78); Albumin, Blood 2.9 g/dL (3.4-5.0); Albumin/Globulin Ratio 0.8 (0.8-1.8); Alk Phos 130 U/L (50-136); Anion Gap 5 mmol/L (6-16); Aspartate Aminotrans (AST/SGOT 43 U/L (12-37); Bilirubin, Total 0.4 mg/dL (0.1-1.0); Blood Urea Nitrogen 9 mg/dL (8-24); Bun/Creatinine Ratio 13.2 (12.0-20.0); CO2, Blood 31 mmol/L (21-32); Calcium, Blood 9.3 mg/dL (8.5-10.1); Chloride, Blood 104 mmol/L (98-108); Creatinine, Blood 0.68 mg/dL (0.40-1.00); Globulin, Blood 3.6 g/dL (2.2-4.0); Glomerular Filtration Rate >60 (60-); Glucose, Blood 80 mg/dL (70-99); Magnesium, Blood 2.2 mg/dL (1.6-2.4); Phosphorus, Blood 3.7 mg/dL (2.5-4.9); Potassium, Blood 3.8 mmol/L (3.5-5.5); Sodium, Blood 140 mmol/L (136-145); Total Protein, Blood 6.5 g/dL (6.4-8.2)
--- NOTE | 2019-05-26 09:48 | NUR ---
IV ACCESS: PATIENT HAD TWO POWERGLIDE IVS THAT WEREN'T DOCUMENTED. ONE WAS IN THE ANTECUBITAL ON HER RIGHT ARM AND THE OTHER IN HER LEFT ARM FOREARM. THE RIGHT ONE WAS TAKEN OUT BECAUSE THERE WAS RESISTANCE WHEN TRYING TO PUSH 5ML NS. REMOVAL WAS WNL AND CATHETER WAS INTACT WHEN REMOVED. THE LEFT IV WAS ABLE TO GIVE 5ML NS WITHOUT COMPLICATIONS. DRESSING WAS TRANSPARENT AND WNL. NO LEAKING OR IRRITATION FOR THE PATIENT. WILL CONTINUE TO MONITOR PATIENT.
--- NOTE | 2019-05-26 10:27 | NUR ---
DR. INGRAM CALLED FOR DISCHARGE ORDERS. WILL MONITOR UNTIL DISCHARGE.
--- NOTE | 2019-05-26 10:30 | NUR ---
IV ACCESS NOTE: PATIENT WILL BE DISCHARGED SOON. NOW HER LEFT POWERGLIDE IV IS DISCONTINUED. UPON REMOVAL THE CATHETER WAS WNL. NO COMPLICATIONS CAME FROM REMOVAL. PATIENT TOLERATED IT WELL. WILL CONTINUE TO MONITOR PATIENT.
[2019-05-26] MEDS ORDERED: Norco 5-325 Ta1 EACH PO (12:53)
[2019-05-26] MEDS ORDERED: MIRALAX17 GM PO (12:54)
--- NOTE | 2019-05-26 14:24 | NUR ---
DISCHARGE NOTE: PATIENTS VITAL SIGNS WERE STABLE THROUGHOUT THE SHIFT. SHE WAS ALERT AND ORIENTED X4. SHE WAS WALKING INDEPENDANTLY IN THE ROOM WHEN GOING INTO HER ROOM TO TALK ABOUT DISCHARGE. SHE DRESSED AND CLEANED HERSELF UP PRIOR TO DISCHARGE. SHE ATE AN ADEQUATE AMOUNT OF FOOD FOR EACH MEAL. SHE WAS EAGER TO GET HOME AND READY TO LISTEN TO INSTRUCTIONS. SHE UNDERSTOOD THE DISCHARGE INSTRUCTIONS AND WAS GOING TO SCHEDULE HER FOLLOW UP APPOINTMENT ONCE SHE WAS HOME. SHE ASKED QUESTIONS APPROPRIATELY. SHE HAD NO FURTHER QUESTIONS TO ASK PRIOR TO LEAVING WITH HER . SHE SAID SHE WOULD CALL SURGICAL FLOOR IF SHE HAD ANY FURTHER QUESTIONS.
== END 2019-05-26 13:45 | disposition home or self-care (01) | DRG 329 ==
LOC: ER 18:21 → SURS 21:09 → ICUW 21:09 → MEDS 05-20 22:00 → SURS 05-21 13:56
PROVIDERS: Emergency Medicine; Family Medicine; Hospitalist; Internal Medicine; Surgery; ADMIT Internal Medicine
PROC: 0DT80ZZ Resection of Small Intestine, Open Approach (ICD-10-PCS; principal; 2019-05-18 20:00)
PROC: 0DN80ZZ Release Small Intestine, Open Approach (ICD-10-PCS; 2019-05-18 20:00)
PROC: 0DJU0ZZ Inspection of Omentum, Open Approach (ICD-10-PCS; 2019-05-18 20:00)
DX: K56.2 Volvulus (principal); K65.0 Generalized (acute) peritonitis; K21.9 Gastro-esophageal reflux disease without esophagitis; M06.9 Rheumatoid arthritis, unspecified; E78.5 Hyperlipidemia, unspecified; E03.9 Hypothyroidism, unspecified; F31.9 Bipolar disorder, unspecified; J45.909 Unspecified asthma, uncomplicated
CPT/HCPCS: 36415; 74177; 80048; 80053; 81001; 82947; 83605; 83690; 83735; 84100; 84478; 85025; 85610; 85730; 87086; 88305; 94640; 94760; 94762; 96361; 96374-59; 96375; 96376; 97110; 97116; 97163; 97166; 97530; 99285-25; A9270-GY; C1751; J0330; J1100; J1170; J1650; J2060; J2270; J2405; J2543; J2704; J2710; J2765; J3010; J7030; J7050; J7120; Q9967

== ENCOUNTER → 2019-06-02 | Outpatient (CLI) | payer OTHER ==
[~2019-06-02] MED LIST changes: +ALBU90OI INH; +ARMODAFINIL250 MG PO; +CELEBREX200 MG PO; +CLONAZEPAM1 MG PO; +CYANOCOBAL1000 MCG/1 IM; +LEUC5 PO; +MIRALAX17 GM PO; +Norco 5-325 Ta1 EACH PO; +Prozac20 MG PO; +QUETIAPINE FUM300 MG PO; +TIOT18 INH
== END | disposition home or self-care (01) ==
LOC: PLD 13:01 → LAB SHORT 13:01
DX: L57.8 Other skin changes due to chronic exposure to nonionizing radiation (principal)
CPT/HCPCS: 88305

== ENCOUNTER → 2019-08-18 | Outpatient (CLI) | payer OTHER | END | disposition home or self-care (01) | LOC: PLD 07:38 → LAB SHORT 07:38 | DX: C44.511 Basal cell carcinoma of skin of breast (principal) | CPT/HCPCS: 88305 ==

== ENCOUNTER → 2019-12-24 | Outpatient (CLI) | payer OTHER ==
[~2019-12-24] MED LIST changes: +CEVIMELINE HCL30 MG PO; +CONEST.625 VAG; +MODA200 PO
== END ==
LOC: LAB SHORT 14:48 → PLD 14:48
DX: D48.5 Neoplasm of uncertain behavior of skin (principal); D22.5 Melanocytic nevi of trunk
CPT/HCPCS: 88305

== ENCOUNTER → 2020-04-25 | Outpatient (CLI) | payer OTHER | END | disposition home or self-care (01) | LOC: LAB 15:45 → LAB SHORT 15:45 | DX: C44.612 Basal cell carcinoma of skin of right upper limb, including shoulder (principal) | CPT/HCPCS: 88305 ==

== ENCOUNTER → 2020-08-22 | Outpatient (CLI) | payer OTHER | END | disposition home or self-care (01) | LOC: LAB SHORT 08:41 → LAB 08:41 | DX: C44.719 Basal cell carcinoma of skin of left lower limb, including hip (principal) | CPT/HCPCS: 88305 ==

== ENCOUNTER 2021-02-17 08:00 | Day surgery (SDC) | payer OTHER ==
[~2021-02-17] VITALS: Ht 149.9 cm; Wt 56.5 kg
--- NOTE | 2021-02-17 10:18 | NUR ---
Patient up to Ambulate independently. Gait steady. Discharge instructions reviewed with patient. Patient verbalizes understanding. Copy given to patient to take home. Patient States Post-Procedure ride home has been arranged. Discharged via wheelchair to private car for ride home.
--- NOTE | 2021-02-21 13:01 | NUR ---
02/21/21 1301 Clemencia Lorenzo History, Chart, Medications and Allergies reviewed before start of procedure. Patient confirms NPO status and agrees with scheduled surgery. 3-LEAD EKG REVIEWED WITH PHYSICIAN PRIOR TO START OF PROCEDURE. MONITOR INTACT WITH CONTINUOUS PULSE OXIMETRY AND INTERMITTENT BP. PATIENT DETERMINED TO BE ASA APPROPRIATE FOR PROPOFOL SEDATION PRIOR TO START OF PROCEDURE BY . (LATE ENTRY)
== END 2021-02-17 10:18 | disposition home or self-care (01) ==
LOC: ORSCMMR 08:00 → ORD 09:15 → ORSCMMR 10:18
PROVIDERS: Surgery
PROC: 0DBL8ZX Excision of Transverse Colon, Via Natural or Artificial Opening Endoscopic, Diagnostic (ICD-10-PCS; principal; 2021-02-17 09:15)
PROC: 0DBK8ZX Excision of Ascending Colon, Via Natural or Artificial Opening Endoscopic, Diagnostic (ICD-10-PCS; principal; 2021-02-17 09:15)
DX: Z12.11 Encounter for screening for malignant neoplasm of colon (principal); Z86.010 Personal history of colon polyps; Z80.0 Family history of malignant neoplasm of digestive organs; D12.3 Benign neoplasm of transverse colon; D12.2 Benign neoplasm of ascending colon; F41.9 Anxiety disorder, unspecified; F31.9 Bipolar disorder, unspecified; J44.9 Chronic obstructive pulmonary disease, unspecified; K21.9 Gastro-esophageal reflux disease without esophagitis; E78.5 Hyperlipidemia, unspecified; E03.9 Hypothyroidism, unspecified; Z87.891 Personal history of nicotine dependence; Z79.899 Other long term (current) drug therapy
CPT/HCPCS: 88305; J2704; J7120

== ENCOUNTER 2021-12-26 14:56 | Inpatient (IN) | payer OTHER ==
[~2021-12-26] VITALS: Ht 149.9 cm; Wt 54.8 kg
[~2021-12-26 14:56] MED LIST changes: -AMOCLA875 PO; -AZIT250 PO; -BENZ100A PO
--- NOTE | 2021-12-26 15:50 | NUR ---
PT ARRIVED TO UNIT VIA DIRECT ADMIT. PT ABLE TO SELF TRANSFER, SPOUSE AND DAUGHTER @BEDSIDE. PT ORIENTED TO ROOM. VSS.
--- NOTE | 2021-12-26 18:20 | NUR ---
SHIFT SUMMARY PT A&OX4 AND IN PLEASENT MOOD SINCE DIRECT ADMIT @ 0406. SPOUSE AND DAUGHTER IN TO SEE PT T/O VISITING HOURS. PT C/O COLDNESS-PROVIDED W/ WARM BLANKETS. TOLERATING PO INTAKE WELL. PLAN TO COLLECT SPUTUM. CALL LIGHT W/IN REACH. VSS. RA. PLAN TO INITIATE ABX.
--- NOTE | 2021-12-27 04:59 | NUR ---
SHIFT SUMMARY: PATIENT REPORTS FEELING "WORN OUT". LOW GRADE TEMP. IS OBSERVED AT START OF SHIFT THAT RESOLVED WITHOUT MEDICATION. IVF ARE INFUSING PER MAR. PATIENT HAS AN OCCASSIONAL NON PRODUCTIVE COUGH. MAINTAINING SATS ABOVE 90% ON RA.
[2021-12-27 05:28] LABS: BASOPHILS ABSOLUTE AUTO 0.02 K/mm3 (0.00-0.23); BASOPHILS PERCENT AUTO 0 % (0-2); EOSINOPHILS ABSOLUTE AUTO 0.03 K/mm3 (0.00-0.68); EOSINOPHILS PERCENT AUTO 0 % (0-6); Hematocrit 32.2 % (33.0-51.0); IMMATURE GRAN ABSOLUTE AUTO 0.05 K/mm3 (0.00-0.10); IMMATURE GRAN PERCENT AUTO 1 % (0-1); LYMPHOCYTES PERCENT AUTO 5 % (21-46); MONOCYTES ABSOLUTE AUTO 0.95 K/mm3 (0.16-1.47); MONOCYTES PERCENT AUTO 10 % (4-13); Mean Corpuscular HGB 31.7 pg (26.0-34.0); Mean Corpuscular HGB Conc 34.2 g/dL (31.5-36.5); Mean Corpuscular Volume 93 fL (80-100); Mean Platelet Volume 9.5 fL (9.1-12.4); NEUTROPHILS ABSOLUTE AUTO 7.71 K/mm3 (1.96-9.15); NEUTROPHILS PERCENT AUTO 83 % (41-73); Platelet Count 205 K/mm3 (150-400); RDW Coefficient Variation 13.7 % (11.7-14.2); RDW Standard Deviation 46.1 fL (35.1-46.3); Red Blood Cell Count 3.47 M/mm3 (3.80-5.20); White Blood Cell Count 9.26 K/mm3 (4.00-11.30)
[2021-12-27 05:54] LABS: Albumin, Blood 2.4 g/dL (3.4-5.0); Albumin/Globulin Ratio 0.8 (0.8-1.8); Bilirubin, Total 0.6 mg/dL (0.1-1.0); Bun/Creatinine Ratio 8.8 (12.0-20.0); Calcium, Blood 8.3 mg/dL (8.5-10.1); Creatinine, Blood 0.8 mg/dL (0.40-1.00); Magnesium, Blood 1.8 mg/dL (1.6-2.4); Phosphorus, Blood 2.6 mg/dL (2.5-4.9); Potassium, Blood 3.5 mmol/L (3.5-5.5); Total Protein, Blood 5.4 g/dL (6.4-8.2)
--- NOTE | 2021-12-27 18:00 | NUR ---
SHIFT SUMMARY PT A&OX4 AND IN PLEASENT MOOD T/O SHIFT. DAUGHTER IN TO SEE PT DURING VISITING HOURS. PT RESTED IN BED T/O SHIFT. BED ALARM IN PLACE, EDUCATED PT ON CALLING FOR SBA WHILE HOOKED TO IV, ACCIDENTAL SELF IV DC-POWERGLIDE IN PLACE @ THIS TIME. CALL LIGHT W/IN REACH. FEVER NOTED, MEDICATED W/ TYLENOL. DIMISHED APPETITE.
--- NOTE | 2021-12-28 00:36 | NUR ---
Call to RT to apply cpap- pt sats in the mid 80s while asleep- pt tolerated cpap without problems
[2021-12-28 05:32] LABS: BASOPHILS ABSOLUTE AUTO 0.02 K/mm3 (0.00-0.23); BASOPHILS PERCENT AUTO 1 % (0-2); EOSINOPHILS ABSOLUTE AUTO 0.05 K/mm3 (0.00-0.68); EOSINOPHILS PERCENT AUTO 1 % (0-6); Hematocrit 34.6 % (33.0-51.0); Hemoglobin 11.5 g/dL (11.5-16.0); IMMATURE GRAN ABSOLUTE AUTO 0.03 K/mm3 (0.00-0.10); IMMATURE GRAN PERCENT AUTO 1 % (0-1); LYMPHOCYTES ABSOLUTE AUTO 0.69 K/mm3 (0.84-5.20); LYMPHOCYTES PERCENT AUTO 17 % (21-46); MONOCYTES ABSOLUTE AUTO 1.04 K/mm3 (0.16-1.47); MONOCYTES PERCENT AUTO 25 % (4-13); Mean Corpuscular HGB Conc 33.2 g/dL (31.5-36.5); Mean Corpuscular Volume 93 fL (80-100); Mean Platelet Volume 10.4 fL (9.1-12.4); NEUTROPHILS ABSOLUTE AUTO 2.27 K/mm3 (1.96-9.15); NEUTROPHILS PERCENT AUTO 55 % (41-73); Platelet Count 196 K/mm3 (150-400); RDW Coefficient Variation 13.7 % (11.7-14.2); Red Blood Cell Count 3.71 M/mm3 (3.80-5.20)
--- NOTE | 2021-12-28 05:47 | NUR ---
MIDLINE FLUSHED WITH GOOD BLOOD RETURN- PT UP ABLIB- ENCOURAGED PT TO CALL FOR ASSISTANCE IF CPAP WAS ON OR IV INFUSING- PT AGREED AND CALLED APPROPRIATE- PT SLEPT T/O NIGHT
[2021-12-28 06:05] LABS: Albumin, Blood 2.4 g/dL (3.4-5.0); Anion Gap 6 mmol/L (6-16); Blood Urea Nitrogen 8 mg/dL (8-24); Bun/Creatinine Ratio 11.6 (12.0-20.0); CO2, Blood 28 mmol/L (21-32); Calcium, Blood 8.5 mg/dL (8.5-10.1); Chloride, Blood 106 mmol/L (98-108); Creatinine, Blood 0.69 mg/dL (0.40-1.00); Glomerular Filtration Rate 92 (60-); Glucose, Blood 91 mg/dL (70-99); Magnesium, Blood 2.2 mg/dL (1.6-2.4); Phosphorus, Blood 3.8 mg/dL (2.5-4.9); Potassium, Blood 4.3 mmol/L (3.5-5.5); Sodium, Blood 140 mmol/L (136-145)
--- NOTE | 2021-12-28 14:16 | NUR ---
MICONAZOLE RECEIVED V.O. FROM DR. MEDINA FOR MICONAZOLE BID TOPICAL FOR YEAST INFECTION UNDER BREAST FOLD.
--- NOTE | 2021-12-28 17:09 | NUR ---
Shift Summary A/Ox3, pleasant/cooperative. Family at bedside. Denies pain. Meds whole with water. Doherty d/c this am, voiding well with mixed continence. Up to bedside commode x 2 assist. Marked red area to LLE appears to be improving. Worked with PT. Daughter wanted to d/c coumadin and start either eliquis or xarelto; Dr. Andino notified of request. Multiple incontinent bowel movements today. Poor appetite. Calling appropriately for needs.
--- NOTE | 2021-12-28 17:15 | NUR ---
Shift Summary A/Ox4, pleasant/cooperative. Up ad danette. Had shower today. RA throughout day with sats above 90%, continous biox on. Denies SOB, nonproductive cough. Had family visiting. Nystatin ordered for yeast infection to L breast fold. Zosyn q6h. Overall uneventful day.
--- NOTE | 2021-12-29 04:23 | NUR ---
SHIFT SUMMARY PT A&O X 4, PT UP ABLIB IN ROOM, POWER GLIDE TO RIGHT UPPER ARM- ABX ORDERED EVERY 6 HOURS BLOOD RETURN DEPENDS ON POSITON OF ARM- PT HAD INCREASED ANXIETY D/T BEING ADMITTED ON UNIT- DROPLET PRECAUTIONS IN PLACE
[2021-12-29] MEDS ORDERED: BENZ100A PO (14:46)
[2021-12-29] MEDS ORDERED: AMOCLA875 PO (14:47)
[2021-12-29] MEDS ORDERED: AZIT250 PO (14:48)
--- NOTE | 2021-12-29 15:35 | NUR ---
DISCHARGE SUMMARY: PT A&O X4. PT EDUCATED ON ABX MEDICATION, FOLLOW UP WITH PCP IN 1 WEEK, AND MANAGEING COVID SYMPTOMS AT HOME. PT GIVEN MEDICATION EDUCATION HANDOUTS. PT POWERGLIDE REMOVED WITHOUT DIFFICULTY AND CATHETER INTACTED. PT BELONGES PACKED HERSELF. PT FAMILY ESCORTED PT TO THE LOBBY VIA WHEEL CHAIR.
== END 2021-12-29 16:51 | disposition home or self-care (01) | DRG 193 ==
LOC: MEDS 14:56
PROVIDERS: ADMIT Family Medicine
DX: J18.9 Pneumonia, unspecified organism (principal); J96.01 Acute respiratory failure with hypoxia; J44.0 Chronic obstructive pulmonary disease with (acute) lower respiratory infection; F41.1 Generalized anxiety disorder; M06.9 Rheumatoid arthritis, unspecified; G47.33 Obstructive sleep apnea (adult) (pediatric); F31.9 Bipolar disorder, unspecified; E03.9 Hypothyroidism, unspecified; Z88.6 Allergy status to analgesic agent; Z88.1 Allergy status to other antibiotic agents; Z88.5 Allergy status to narcotic agent; Z88.2 Allergy status to sulfonamides; Z88.8 Allergy status to other drugs, medicaments and biological substances
CPT/HCPCS: 36415; 80053; 80069; 83735; 84100; 84145; 85025; 87070; 87205; 94640; 94660; 94664; 94760; 94762; A9270; J1650; J2543; J3475; J7030; J7050; J7060

== ENCOUNTER → 2021-12-26 | Outpatient (CLI) | payer OTHER ==
[~2021-12-26] MED LIST changes: +AMOCLA875 PO; +AZIT250 PO; +BENZ100A PO; +CELE100 PO; -CELEBREX200 MG PO; +EUTHYROX50 MCG PO; -Prozac20 MG PO; +Prozac40 MG PO; -QUETIAPINE FUM300 MG PO
[2021-12-26 13:14] LABS: BASOPHILS ABSOLUTE AUTO 0.03 K/mm3 (0.00-0.23); BASOPHILS PERCENT AUTO 0 % (0-2); EOSINOPHILS ABSOLUTE AUTO 0.08 K/mm3 (0.00-0.68); EOSINOPHILS PERCENT AUTO 0 % (0-6); Hematocrit 38.3 % (33.0-51.0); Hemoglobin 13.4 g/dL (11.5-16.0); IMMATURE GRAN ABSOLUTE AUTO 0.11 K/mm3 (0.00-0.10); IMMATURE GRAN PERCENT AUTO 1 % (0-1); LYMPHOCYTES PERCENT AUTO 3 % (21-46); MONOCYTES ABSOLUTE AUTO 1.57 K/mm3 (0.16-1.47); MONOCYTES PERCENT AUTO 7 % (4-13); Mean Corpuscular HGB 32.7 pg (26.0-34.0); Mean Corpuscular Volume 93 fL (80-100); Mean Platelet Volume 9.7 fL (9.1-12.4); NEUTROPHILS ABSOLUTE AUTO 18.77 K/mm3 (1.96-9.15); NEUTROPHILS PERCENT AUTO 89 % (41-73); Platelet Count 252 K/mm3 (150-400); RDW Coefficient Variation 13.7 % (11.7-14.2); RDW Standard Deviation 46.3 fL (35.1-46.3); White Blood Cell Count 21.16 K/mm3 (4.00-11.30)
[2021-12-26 13:20] LABS: Bun/Creatinine Ratio 17.9 (12.0-20.0); Calcium, Blood 8.8 mg/dL (8.5-10.1); Creatinine, Blood 0.67 mg/dL (0.40-1.00); Potassium, Blood 3.9 mmol/L (3.5-5.5)
== END | disposition home or self-care (01) ==
LOC: LAB 13:08 → LAB SHORT 13:08
PROVIDERS: Family Medicine
DX: J18.0 Bronchopneumonia, unspecified organism (principal)
CPT/HCPCS: 80048; 85025; 87040

== ENCOUNTER → 2022-01-09 | Outpatient (CLI) | payer OTHER ==
[~2022-01-09] MED LIST changes: +AMOCLA875 PO; +AZIT250 PO; +BENZ100A PO
[2022-01-09 14:01] LABS: BASOPHILS ABSOLUTE AUTO 0.02 K/mm3 (0.00-0.23); BASOPHILS PERCENT AUTO 0 % (0-2); EOSINOPHILS ABSOLUTE AUTO 0.12 K/mm3 (0.00-0.68); EOSINOPHILS PERCENT AUTO 1 % (0-6); Hematocrit 36.8 % (33.0-51.0); Hemoglobin 12.7 g/dL (11.5-16.0); IMMATURE GRAN ABSOLUTE AUTO 0.13 K/mm3 (0.00-0.10); IMMATURE GRAN PERCENT AUTO 1 % (0-1); LYMPHOCYTES ABSOLUTE AUTO 0.55 K/mm3 (0.84-5.20); LYMPHOCYTES PERCENT AUTO 6 % (21-46); MONOCYTES ABSOLUTE AUTO 0.95 K/mm3 (0.16-1.47); MONOCYTES PERCENT AUTO 11 % (4-13); Mean Corpuscular HGB 31.1 pg (26.0-34.0); Mean Corpuscular HGB Conc 34.5 g/dL (31.5-36.5); Mean Corpuscular Volume 90 fL (80-100); Mean Platelet Volume 9.1 fL (9.1-12.4); NEUTROPHILS ABSOLUTE AUTO 7.21 K/mm3 (1.96-9.15); NEUTROPHILS PERCENT AUTO 80 % (41-73); Platelet Count 438 K/mm3 (150-400); RDW Coefficient Variation 13.1 % (11.7-14.2); RDW Standard Deviation 42.1 fL (35.1-46.3); Red Blood Cell Count 4.09 M/mm3 (3.80-5.20); White Blood Cell Count 8.98 K/mm3 (4.00-11.30)
[2022-01-09 14:08] LABS: Bun/Creatinine Ratio 30.4 (12.0-20.0); Calcium, Blood 9.1 mg/dL (8.5-10.1); Creatinine, Blood 0.69 mg/dL (0.40-1.00); Potassium, Blood 3.3 mmol/L (3.5-5.5)
== END ==
LOC: LAB 13:58 → LAB SHORT 13:58
PROVIDERS: Family Medicine
DX: J18.0 Bronchopneumonia, unspecified organism (principal)
CPT/HCPCS: 80048; 85025

== ENCOUNTER → 2022-01-19 | Outpatient (CLI) | payer OTHER ==
[2022-01-19 18:16] LABS: BASOPHILS ABSOLUTE AUTO 0.02 K/mm3 (0.00-0.23); BASOPHILS PERCENT AUTO 0 % (0-2); EOSINOPHILS ABSOLUTE AUTO 0.02 K/mm3 (0.00-0.68); EOSINOPHILS PERCENT AUTO 0 % (0-6); Hematocrit 32.9 % (33.0-51.0); Hemoglobin 11.2 g/dL (11.5-16.0); IMMATURE GRAN ABSOLUTE AUTO 0.19 K/mm3 (0.00-0.10); IMMATURE GRAN PERCENT AUTO 2 % (0-1); LYMPHOCYTES ABSOLUTE AUTO 0.71 K/mm3 (0.84-5.20); LYMPHOCYTES PERCENT AUTO 7 % (21-46); MONOCYTES ABSOLUTE AUTO 0.86 K/mm3 (0.16-1.47); MONOCYTES PERCENT AUTO 8 % (4-13); Mean Corpuscular HGB 30.2 pg (26.0-34.0); Mean Corpuscular Volume 89 fL (80-100); Mean Platelet Volume 9.6 fL (9.1-12.4); NEUTROPHILS ABSOLUTE AUTO 8.57 K/mm3 (1.96-9.15); NEUTROPHILS PERCENT AUTO 83 % (41-73); Platelet Count 357 K/mm3 (150-400); RDW Coefficient Variation 13.8 % (11.7-14.2); Red Blood Cell Count 3.71 M/mm3 (3.80-5.20); White Blood Cell Count 10.37 K/mm3 (4.00-11.30)
[2022-01-19 18:20] LABS: Calcium, Blood 8.8 mg/dL (8.5-10.1); Creatinine, Blood 0.68 mg/dL (0.40-1.00); Potassium, Blood 3.5 mmol/L (3.5-5.5)
== END | disposition home or self-care (01) ==
LOC: LAB SHORT 18:11 → LAB 18:11
PROVIDERS: Physician Assistant Surgical
DX: R50.9 Fever, unspecified (principal)
CPT/HCPCS: 80048; 85025

== ENCOUNTER 2022-01-23 14:55 | Inpatient (IN) | payer OTHER ==
[~2022-01-23] VITALS: Ht 149.9 cm; Wt 61.3 kg
[2022-01-23 17:01] LABS: Source, Urine Clean Catch
[2022-01-23 17:04] LABS: Appearance, Urine Clear (Clear); Bilirubin, Urine Neg (Neg); Blood, Urine Neg (Neg); Color, Urine Amber (P-Yellow); Glucose Qualitative, Urine Neg (Neg); Ketones, Urine 2+ (Neg); Leukocyte Esterase, Urine Neg (Neg); Nitrite, Urine Neg (Neg); Protein, Urine 2+ (Neg); Specific Gravity, Urine 1.005 (1.003-1.022); Urobilinogen, Urine NORM (Normal)
[2022-01-23 17:44] LABS: Bacteria Rare /hpf; Red Blood Cells, Urine 0-2 /hpf (0-2); Renal Epithelial Rare /hpf (0-Rare); Squamous Epithelial Cells Many /hpf (Few); Transitional Epithelial Cells Rare /hpf (0-Rare); White Blood Cells, Urine 0-2 /hpf (0-5)
--- NOTE | 2022-01-23 19:19 | NUR ---
PATIENT WAS A DIRECT ADMITT FROM [facility] WITH DIAGNOSIS OF COVID POSITIVE PNEUMONIA. PATIENT ARRIVED TO ROOM AROUND 1454 VIA WHEELCHAIR. PATIENT A&OX4. PLEASANT AND COOPERATIVE WITH CARE. USES CALL LIGHT APPROPRIATELY AND ABLE TO ADVOCATE FOR HER NEEDS. PATIENT AMBULATES TO BATHROOM INDEPENDENTLY. UA SAMPLE WAS SENT TO LAB THIS PM AWAITING FOR RESULT. IV TO L WRIST INFUSING K AT THIS TIME. RECEIVED ONE DOSE OF MAG IV. PATIENT REPORTS OF HEADACHE. MEDICATE PRN PAIN MEDS PER EMAR. VITAL SIGNS REVIEWED. CALL LIGHT IN REACH.
--- NOTE | 2022-01-23 20:12 | NUR ---
PT TO CT VIA ESCORT BY BRIE @ 2013.
--- NOTE | 2022-01-24 06:27 | NUR ---
SCIENCE LIAISON SUMMARY: A&Ox4. PLEASANT AND COOPERATIVE WITH CARE. CALLS APPROPRIATELY AND COMMUNICATES NEEDS EFFECTIVELY. WEARING BRIEFS D/T URINARY URGENCY, WHICH HAS ONLY BEEN AN ISSUE SINCE BEING Dx'D WITH COVID IN DECEMBER 2021. EXTENSIVE GI Hx INCLUDING COLOSTOMY AND IS PRONE TO CONSTIPATION AND BOWEL OBSTRUCTIONS, PER HER DAUGHTER. WILL ASK DAY SHIFT RN TO REQUEST DAILY STOOL SOFTENERS FROM PROVIDER. PT HAS BAG OF ALL OF HER MEDS IN CUPBOARD IN ROOM; DAUGHTER WILL ASK PT'S TO TAKE HOME ALL MEDS EXCEPT FOR CEVIMELINE, WHICH IS IN HER DRAWER AND ADMINISTERED BY HOSPITAL STAFF. DECLINED CPAP FROM RT. BEGAN DESATTING LAST NIGHT TO 86% AND AGREED TO O2 VIA NC @ 2L/min AND MAINTAINED 94-96% T/O NIGHT. HER WILL BE IN THIS MORNING AND HER DAUGHTER WILL BE IN THIS EVENING. PAIN MEDICATION ADMINISTERED FOR C/O RIGHT FLANK PAIN. CT W/ CONTRACT COMPLETED LAST NIGHT. LET DAUGHTER KNOW PROVIDER WILL LIKELY DISCUSS THIS WITH PT TODAY. NO BM NOTED. UP TO VOID x2 LAST NIGHT. C/O HEADACHE THAT WON'T STOP; HAS BEEN AN ISSUE SINCE BEING Dx'd WITH COVID. POWERGLIDE PLACED IN JOE YESTERDAY AND IS INFUSING NS & ABx WITHOUT DIFFICULTY. WILL REPORT TO ONCOMING RN.
[2022-01-24 07:35] LABS: BASOPHILS ABSOLUTE AUTO 0.02 K/mm3 (0.00-0.23); BASOPHILS PERCENT AUTO 0 % (0-2); EOSINOPHILS ABSOLUTE AUTO 0.03 K/mm3 (0.00-0.68); EOSINOPHILS PERCENT AUTO 0 % (0-6); Hematocrit 26.6 % (33.0-51.0); Hemoglobin 8.9 g/dL (11.5-16.0); IMMATURE GRAN PERCENT AUTO 1 % (0-1); LYMPHOCYTES PERCENT AUTO 8 % (21-46); MONOCYTES ABSOLUTE AUTO 0.97 K/mm3 (0.16-1.47); MONOCYTES PERCENT AUTO 14 % (4-13); Mean Corpuscular HGB 29.7 pg (26.0-34.0); Mean Corpuscular HGB Conc 33.5 g/dL (31.5-36.5); Mean Corpuscular Volume 89 fL (80-100); Mean Platelet Volume 9.6 fL (9.1-12.4); NEUTROPHILS ABSOLUTE AUTO 5.42 K/mm3 (1.96-9.15); NEUTROPHILS PERCENT AUTO 76 % (41-73); Platelet Count 339 K/mm3 (150-400); RDW Coefficient Variation 14.1 % (11.7-14.2); RDW Standard Deviation 45.6 fL (35.1-46.3); White Blood Cell Count 7.14 K/mm3 (4.00-11.30)
[2022-01-24 08:51] LABS: Albumin, Blood 1.9 g/dL (3.4-5.0); Anion Gap 6 mmol/L (6-16); Blood Urea Nitrogen 5 mg/dL (8-24); Bun/Creatinine Ratio 8.7 (12.0-20.0); CO2, Blood 28 mmol/L (21-32); Calcium, Blood 8.2 mg/dL (8.5-10.1); Chloride, Blood 105 mmol/L (98-108); Creatinine, Blood 0.57 mg/dL (0.40-1.00); Glomerular Filtration Rate 96 (60-); Glucose, Blood 97 mg/dL (70-99); Magnesium, Blood 2.3 mg/dL (1.6-2.4); Potassium, Blood 3.5 mmol/L (3.5-5.5); Sodium, Blood 139 mmol/L (136-145)
--- NOTE | 2022-01-24 19:16 | NUR ---
SHIFT SUMMARY: PATIENT A&OX4. PLEASANT AND COOPERATIVE WITH CARE. USES CALL LIGHT APPROPRIATELY AND ABLE TO ADVOCATE FOR HER NEEDS. PATIENT REPORTS OF HAVING HEADACHE AND R FLANK PAIN. RECEIVED PRN PAIN MEDS PER EMAR WITH GOOD RELIEF. PATIENT AMBULATES TO BATHROOM WITH SBA. RECIEVED SCHEDULED MEDS THIS SHIFT. PATIENT IS ON 2L OF O2 AT NIGHT AND WHEN NAPPING DURING THE DAY. PATIENT SPO2 RANGES ABOUT 92-96%. PATIENT RECEIVED SHOWER THIS PM AND TOLERATING WELL WITHOUT ANY SIGNS OF SOB AND DISCOMFORT DURING AMBULATION. VITAL SIGNS REVIEWED. POWERGLIDE TO ROMEO AND PERIPERAL IV TO L WRIST SALINE LOCKED AT THIS TIME. BED IN LOWEST POSITION, LOCKED & CALL LIGHT IN REACH.
[2022-01-25 05:51] LABS: BASOPHILS ABSOLUTE AUTO 0.03 K/mm3 (0.00-0.23); BASOPHILS PERCENT AUTO 0 % (0-2); EOSINOPHILS PERCENT AUTO 1 % (0-6); Hematocrit 29.5 % (33.0-51.0); Hemoglobin 9.8 g/dL (11.5-16.0); IMMATURE GRAN PERCENT AUTO 1 % (0-1); LYMPHOCYTES ABSOLUTE AUTO 0.55 K/mm3 (0.84-5.20); LYMPHOCYTES PERCENT AUTO 7 % (21-46); MONOCYTES ABSOLUTE AUTO 0.89 K/mm3 (0.16-1.47); MONOCYTES PERCENT AUTO 12 % (4-13); Mean Corpuscular HGB Conc 33.2 g/dL (31.5-36.5); Mean Corpuscular Volume 90 fL (80-100); Mean Platelet Volume 9.6 fL (9.1-12.4); NEUTROPHILS ABSOLUTE AUTO 6.04 K/mm3 (1.96-9.15); NEUTROPHILS PERCENT AUTO 78 % (41-73); Platelet Count 399 K/mm3 (150-400); RDW Coefficient Variation 14.1 % (11.7-14.2); RDW Standard Deviation 45.8 fL (35.1-46.3); Red Blood Cell Count 3.27 M/mm3 (3.80-5.20); White Blood Cell Count 7.71 K/mm3 (4.00-11.30)
[2022-01-25 06:09] LABS: Albumin, Blood 2.1 g/dL (3.4-5.0); Anion Gap 6 mmol/L (6-16); Blood Urea Nitrogen 6 mg/dL (8-24); Bun/Creatinine Ratio 8.7 (12.0-20.0); CO2, Blood 28 mmol/L (21-32); Calcium, Blood 8.8 mg/dL (8.5-10.1); Chloride, Blood 103 mmol/L (98-108); Creatinine, Blood 0.69 mg/dL (0.40-1.00); Glomerular Filtration Rate 92 (60-); Glucose, Blood 107 mg/dL (70-99); Magnesium, Blood 1.8 mg/dL (1.6-2.4); Phosphorus, Blood 2.6 mg/dL (2.5-4.9); Potassium, Blood 3.9 mmol/L (3.5-5.5); Sodium, Blood 137 mmol/L (136-145)
--- NOTE | 2022-01-25 07:50 | NUR ---
SHIFT SUMMARY A&O X 4. VSS. DENIES PAIN. STANDBY ASSIST TO BATHROOM. PT HAS NOT HAD BM X 4 DAYS. BOWEL REGIMEN STARTED. PT TOOK MIRALAX AND SENOKOT DURING MED PASS. PT STILL DID NOT HAVE BM THIS SHIFT.
--- NOTE | 2022-01-25 12:57 | NUR ---
alert and oriented, makes needs known, sister and at bedside, patient pleasant to all care, no bm, call light with in reach
--- NOTE | 2022-01-25 18:43 | NUR ---
ALERT AND ORIENTED, NO ACUTE CHANGES, NO BM, MEDICATED WITH ALL BM MEDICATIONS, BSC, BEDALARM ON FOR URGENCY TO VOID, PATIENT HAD A POOR APPETITE ALL DAY, AT 75% OF DINNER, FAMILY VISITING AT BEDSIDE, CALL LIGHT WITH IN REACH, PATIENT RELUCTANT TO ASK FOR HELP, PLEASANT TO ALL CARE, MEDICATED FOR A HEADACHE WITH TYLENOL AND CLONAZEPAM, WILL RELAY TO PM RN
[2022-01-25 21:00] LABS: Vancomycin, Trough 3.6 ug/mL (5.0-10.0)
--- NOTE | 2022-01-26 07:36 | NUR ---
SHIFT SUMMARY ALERT AND ORIENTED X 4. VSS. STANDBY ASSIST TO BATHROOM. PT HAD SMALL LOOSE STOOL THIS SHIFT. PAIN MANAGED WITH PRN TRAMADOL. SLEPT WELL IN BETWEEN CARE. BED ALARM ON. WILL CONTINUE TO MONITOR AND FOLLOW PLAN OF CARE.
[2022-01-26 08:22] LABS: Albumin, Blood 1.9 g/dL (3.4-5.0); Anion Gap 6 mmol/L (6-16); Blood Urea Nitrogen 6 mg/dL (8-24); Bun/Creatinine Ratio 8.7 (12.0-20.0); CO2, Blood 30 mmol/L (21-32); Calcium, Blood 8.1 mg/dL (8.5-10.1); Chloride, Blood 99 mmol/L (98-108); Creatinine, Blood 0.69 mg/dL (0.40-1.00); Glomerular Filtration Rate 92 (60-); Glucose, Blood 93 mg/dL (70-99); Magnesium, Blood 1.8 mg/dL (1.6-2.4); Phosphorus, Blood 2.6 mg/dL (2.5-4.9); Potassium, Blood 3.5 mmol/L (3.5-5.5); Sodium, Blood 135 mmol/L (136-145)
--- NOTE | 2022-01-26 16:21 | NUR ---
SHIFT SUMMARY PT WOKE FOR SHIFT REPORT THIS AM. PLEASANT AND CO-OP WITH CARE. SBA TO BTHRM AND WHEN UP WALKING TO CHAIR; SLIGHTLY WEAK AND UNSTEADY, BUT IMPROVING. PT RECEIVING IV ABX FOR PNM; LUNGS T/O COARSE. PT ON RA WHEN UP, 2L O2 VIA NC WHEN SLEEPING D/T HX OF SESAR. PT REPORTED THAT SHE DOES NOT WEAR OXYGEN WHEN AT HOME THOUGH, EVEN AT NIGHT. MEDICATED FOR C/O JONES THIS AFTERNOON. REPORTED TYLENOL TAKING THE EDGE OFF. SEVERAL VISITORS IN THRU OUT THE DAY. BED LINENS CHANGED AGAIN TODAY, PER PT REQUEST. RESTING QUIETLY AT THIS TIME. CALL LT IN REACH.
[2022-01-26 20:35] LABS: Vancomycin, Trough 8.8 ug/mL (5.0-10.0)
--- NOTE | 2022-01-27 05:50 | NUR ---
SHIFT SUMMARY A&O X4. VSS. NO COMPLAINTS OF PAIN. PT ACCIDENTAL REMOVAL OF L FOREARM IV. POWERGLIDE TO JOE, PATENT, ABLE TO DRAW BLOOD FROM. STANDBY ASSIST TO BATHROOM.
[2022-01-27 05:54] LABS: BASOPHILS ABSOLUTE AUTO 0.03 K/mm3 (0.00-0.23); BASOPHILS PERCENT AUTO 0 % (0-2); EOSINOPHILS ABSOLUTE AUTO 0.17 K/mm3 (0.00-0.68); EOSINOPHILS PERCENT AUTO 2 % (0-6); Hematocrit 26.4 % (33.0-51.0); Hemoglobin 8.6 g/dL (11.5-16.0); IMMATURE GRAN ABSOLUTE AUTO 0.06 K/mm3 (0.00-0.10); IMMATURE GRAN PERCENT AUTO 1 % (0-1); LYMPHOCYTES ABSOLUTE AUTO 0.52 K/mm3 (0.84-5.20); LYMPHOCYTES PERCENT AUTO 6 % (21-46); MONOCYTES PERCENT AUTO 9 % (4-13); Mean Corpuscular HGB Conc 32.6 g/dL (31.5-36.5); Mean Corpuscular Volume 89 fL (80-100); Mean Platelet Volume 9.8 fL (9.1-12.4); NEUTROPHILS ABSOLUTE AUTO 7.84 K/mm3 (1.96-9.15); NEUTROPHILS PERCENT AUTO 83 % (41-73); Platelet Count 417 K/mm3 (150-400); RDW Coefficient Variation 14.3 % (11.7-14.2); RDW Standard Deviation 45.5 fL (35.1-46.3); Red Blood Cell Count 2.97 M/mm3 (3.80-5.20); White Blood Cell Count 9.42 K/mm3 (4.00-11.30)
[2022-01-27 06:20] LABS: Albumin, Blood 1.8 g/dL (3.4-5.0); Anion Gap 6 mmol/L (6-16); Blood Urea Nitrogen 7 mg/dL (8-24); Bun/Creatinine Ratio 10.4 (12.0-20.0); CO2, Blood 30 mmol/L (21-32); Calcium, Blood 8.3 mg/dL (8.5-10.1); Chloride, Blood 102 mmol/L (98-108); Creatinine, Blood 0.67 mg/dL (0.40-1.00); Glomerular Filtration Rate 92 (60-); Glucose, Blood 97 mg/dL (70-99); Magnesium, Blood 1.8 mg/dL (1.6-2.4); Phosphorus, Blood 2.4 mg/dL (2.5-4.9); Potassium, Blood 3.8 mmol/L (3.5-5.5); Sodium, Blood 138 mmol/L (136-145)
--- NOTE | 2022-01-27 20:02 | NUR ---
SHIFT SUMMARY PT A&OX4 AND PLEASANT. STANDBY ASSIST TO BATHROOM. PT C/O OF HEADACHE AND MEDICATED PER EMAR WITH GOOD EFFICACY. SATING IN 90'S ON 2L OXYGEN. PT HAD A LITTLE APPETITE TODAY. PT BECAME VERY CHILLED IN AFTERNOON AND HAD MODERATE SHIVERING. VSS AND BG STABLE. WARM BLANKETS APPLIED AND HOT TEA GIVEN. PT LATER STATED NO LONGER FEELING COLD. BED IN LOWEST POSITOIN AND CALL LIGHT IN REACH. REPORT GIVEN TO DIRECTOR PROCESS ENGINEERING NURSE.
--- NOTE | 2022-01-28 06:36 | NUR ---
A/OX4; CALM AND COOPERATIVE. C/O MILD INTERMITTENT BACK PAIN; TYLENOL HELPFUL PER PATIENT. SBA TO BATHROOM. 2 L NC; DE-SAT TO 86% WITH AMBULATION (QUICK RECOVERY AFTER RETURNING TO BED). SLEEP PROMOTED. BED ALARM SET. CALL LIGHT IN REACH; ENCOURAGED TO MAKE NEEDS KNOWN
[2022-01-28 10:02] LABS: Vancomycin, Trough 11.7 ug/mL (5.0-10.0)
[2022-01-28 10:07] LABS: Albumin, Blood 1.8 g/dL (3.4-5.0); Anion Gap 7 mmol/L (6-16); Blood Urea Nitrogen 5 mg/dL (8-24); Bun/Creatinine Ratio 7.6 (12.0-20.0); CO2, Blood 27 mmol/L (21-32); Chloride, Blood 101 mmol/L (98-108); Creatinine, Blood 0.66 mg/dL (0.40-1.00); Glomerular Filtration Rate 93 (60-); Glucose, Blood 139 mg/dL (70-99); Magnesium, Blood 1.8 mg/dL (1.6-2.4); Potassium, Blood 3.4 mmol/L (3.5-5.5); Sodium, Blood 135 mmol/L (136-145)
--- NOTE | 2022-01-28 19:52 | NUR ---
SHIFT SUMMARY NO ACUTE CHANGES. PT A&OX4 AND PLEASANT. PT C/O HEADACHE AND WAS MEDICATED PER EMAR. PT EATS VERY LITTLE. BROUGHT IN LUNCH TODAY AND PT ATE WELL. PT SLEPT VERY DEEP IN AFTERNOON AND UPON WAKING THOUGHT SHE WAS HOME. PT WAS ABLE TO BE EASILY REORIENTED. PT USES CALL LIGHT APPROPRIATLY. BED IN LOWEST POSITION AND CALL LIGHT IN REACH. REPORT GIVEN TO CASINO CAGE SUPERVISOR NURSE.
[2022-01-28 23:02] LABS: SARS-Cov-2 (COVID-19) PCR, MMC NEGATIVE (NEGATIVE)
[2022-01-29 05:50] LABS: BASOPHILS ABSOLUTE AUTO 0.01 K/mm3 (0.00-0.23); BASOPHILS PERCENT AUTO 0 % (0-2); EOSINOPHILS PERCENT AUTO 0 % (0-6); Hematocrit 23.7 % (33.0-51.0); Hemoglobin 7.9 g/dL (11.5-16.0); IMMATURE GRAN PERCENT AUTO 1 % (0-1); LYMPHOCYTES ABSOLUTE AUTO 0.29 K/mm3 (0.84-5.20); LYMPHOCYTES PERCENT AUTO 3 % (21-46); MONOCYTES ABSOLUTE AUTO 0.44 K/mm3 (0.16-1.47); MONOCYTES PERCENT AUTO 4 % (4-13); Mean Corpuscular HGB 29.4 pg (26.0-34.0); Mean Corpuscular HGB Conc 33.3 g/dL (31.5-36.5); Mean Corpuscular Volume 88 fL (80-100); Mean Platelet Volume 9.8 fL (9.1-12.4); NEUTROPHILS ABSOLUTE AUTO 9.65 K/mm3 (1.96-9.15); NEUTROPHILS PERCENT AUTO 92 % (41-73); Platelet Count 441 K/mm3 (150-400); RDW Coefficient Variation 14.3 % (11.7-14.2); RDW Standard Deviation 45.4 fL (35.1-46.3); Red Blood Cell Count 2.69 M/mm3 (3.80-5.20); White Blood Cell Count 10.49 K/mm3 (4.00-11.30)
[2022-01-29 06:52] LABS: D-Dimer, Quantitative 1.04 mg/L FEU (0.00-0.52)
--- NOTE | 2022-01-29 06:53 | NUR ---
SHIFT SUMMARY: PATIENT SHOWERED AND WAS ABLE TO MAINTAIN SATS BETWEEN 88-94% ON RA. SOB WITH ACTIVITY. NO REPORTS OF PAIN OR DISCOMFORT. PATIENT SLEPT WELL LAST NIGHT BUT WOKE VERY CONFUSED. LATER WHEN PATIENT WAS MORE AWAKE AND WAS A&OX4 SHE REMEMBERED BEING CONFUSED AND ASKED WHAT MEDS SHE WAS GIVEN AT HS. PATIENT DID REQUEST A PRN KLONOPIN. OTHER SCHEDULED MEDICATION WERE ALSO GIVEN BUT NOTHING SEDATIVE.
[2022-01-29 07:01] LABS: International Normalized Ratio 1.09; Prothrombin Time Results 11.4 Sec (9.7-11.5)
--- NOTE | 2022-01-29 12:45 | NUR ---
01/29/22 1245 Bibi Boyce 2% LIDOCAINE JELLY WITH 5 DROPS ANNALEE-SYNEPHRINE 0.5% APPLIED TO BILATERAL NARES WITH COTTON TIP APPLICATOR. 2% LIDOCAINE SOLUTION SPRAYED TO OROPHARYNX USING ATOMIZATION DEVICE UNTIL GAG REFLEX GONE. History, Chart, Medications and Allergies reviewed before start of procedure. MONITOR INTACT WITH CONTINUOUS PULSE OXIMETRY AND INTERMITTENT BP. 3-LEAD EKG REVIEWED WITH PHYSICIAN PRIOR TO START OF PROCEDURE. O2 VIA N/C INTACT THROUGHOUT SEDATION/PROCEDURE. PATIENT DETERMINED TO BE ASA APPROPRIATE FOR MODERATE SEDATION PRIOR TO START OF PROCEDURE BY DR. HANKS.
--- NOTE | 2022-01-29 16:51 | NUR ---
SHIFT SUMMARY PT SLEEPING AT START OF SHIFT. NPO FOR BRONOSCOPY TODAY. PT WOKE EASILY FOR CARE. FAMILY IN TO SIT WITH PT UNTIL TIME FOR PROCEDURE. PO MEDS AND LOVENOX HELD UNTIL PT RETURNED. PT SLEPT FOR A WHILE THIS AFTERNOON. NO C/O WHEN WOKE FOR CARE. UP TO BTHRM WITH SBA NEEDED. LUNGS T/O ARE COARSE TODAY; ONLY CRACKLES ON SATURDAY. O2 INCREASED TO 4L TODAY WELL BY RT. PT WAS ON RA W/A ON SATURDAY. PT AWAKE WATCHING TV AT THIS TIME. CALL LT IN REACH. ABLE TO MAKE NEEDS KNOWN.
--- NOTE | 2022-01-30 04:05 | NUR ---
SHIFT SUMMARY ADMITTED FOR PNEUMONIA. FULL CODE. PLAN IS FOR IV ANTIB RX, IV STEROIDS. BRONCHOSCOPY PERFORMED ON PREVIOUS SHIFT. IV ANTIB RX ARE SCHEDULED. RT TX'S SCHEDULED. PT DECLINES CPAP @ HS. 4 LPM O2 VIA NC, RA AT HOME. SHE HAS REMOVED HER O2 AT TIMES THIS SHIFT, SHE THEN DESATURATES TO MID 80'S. WE DID EDUCATE HER TO KEEP HER O2 ON. SHE HAS COARSE LUNGS W/EXPIRATORY WHEEZES. STANDBY ASSIST W/BRP. HX: COPD, ANXIETY.
--- NOTE | 2022-01-30 08:11 | NUR ---
PT C/O SEVERE JONES/SINUS PAIN FROM BRONCHOSCOPY/LAVAGE YESTERDAY. DECLINED TYLENOL. REQUESTED ULTRAM. 2 TABS GIVEN PER EMAR.
[2022-01-30 08:31] LABS: BASOPHILS ABSOLUTE AUTO 0.02 K/mm3 (0.00-0.23); BASOPHILS PERCENT AUTO 0 % (0-2); EOSINOPHILS PERCENT AUTO 0 % (0-6); Hematocrit 25.3 % (33.0-51.0); Hemoglobin 8.4 g/dL (11.5-16.0); IMMATURE GRAN ABSOLUTE AUTO 0.23 K/mm3 (0.00-0.10); IMMATURE GRAN PERCENT AUTO 1 % (0-1); LYMPHOCYTES ABSOLUTE AUTO 0.36 K/mm3 (0.84-5.20); LYMPHOCYTES PERCENT AUTO 2 % (21-46); MONOCYTES ABSOLUTE AUTO 0.95 K/mm3 (0.16-1.47); MONOCYTES PERCENT AUTO 5 % (4-13); Mean Corpuscular HGB 29.5 pg (26.0-34.0); Mean Corpuscular HGB Conc 33.2 g/dL (31.5-36.5); Mean Corpuscular Volume 89 fL (80-100); Mean Platelet Volume 9.9 fL (9.1-12.4); NEUTROPHILS ABSOLUTE AUTO 16.79 K/mm3 (1.96-9.15); NEUTROPHILS PERCENT AUTO 91 % (41-73); Platelet Count 530 K/mm3 (150-400); RDW Coefficient Variation 14.6 % (11.7-14.2); RDW Standard Deviation 47.4 fL (35.1-46.3); Red Blood Cell Count 2.85 M/mm3 (3.80-5.20); White Blood Cell Count 18.35 K/mm3 (4.00-11.30)
[2022-01-30 08:50] LABS: Albumin, Blood 1.8 g/dL (3.4-5.0); Albumin/Globulin Ratio 0.4 (0.8-1.8); Bilirubin, Total 0.4 mg/dL (0.1-1.0); Bun/Creatinine Ratio 10.8 (12.0-20.0); Calcium, Blood 8.8 mg/dL (8.5-10.1); Creatinine, Blood 0.93 mg/dL (0.40-1.00); Potassium, Blood 3.7 mmol/L (3.5-5.5); Total Protein, Blood 5.8 g/dL (6.4-8.2)
[2022-01-30 09:03] LABS: Vancomycin, Trough 23.7 ug/mL (5.0-10.0)
--- NOTE | 2022-01-30 15:31 | NUR ---
SHIFT SUMMARY PT AWAKE EARLY THIS AM, SITTING UPRIGHT IN BED. AM LABS AND VANCO TROUGH OBTAINED THRU ROMEO CUMMINGS. VANCO TROUGH RETURNED CRITICAL HIGH; PHARMACY ADJUSTMENT MADE TO AM DOSE. DR MONSALVE IN TO SEE PT AND DISCUSS PLAN OF CARE. PT WANTING A FAMILY CONFERENCE WITH JOSEPHINE; DR MONSALVE TO TALK WITH DR MIRANDA LATER TODAY. PT'S LUNGS T/O REMAIN COARSE. DR MIRANDA IN TO SEE PT; MEDICATIONS AND O2 ADJUSTED. O2 INCREASED TO 5L AND NC REPLACED WITH OXIMIZER. PT BREATHING EASIER THIS AFTERNOON. PT SLEEPING MOST OF THE DAY TODAY. FAMILY IN TO VISIT FOR A WHILE THIS AFTERNOON, WAKING PT FROM HER NAP. PT WENT BACK TO SLEEP AFTER THEY LEFT. DR MIRANDA RETURNED TO CK ON PT A COUPLE OF TIMES, BUT PT SLEEPING. WAKES EASILY FOR CARE NEEDED. CALL LT IN REACH.
[2022-01-30 20:10] LABS: ANA DIRECT Negative (Negative); ANTI-DNA (DS) AB QN <1 IU/mL (0-9); RNP ANTIBODIES <0.2 AI (0.0-0.9); SJOGREN'S ANTI-SS-A <0.2 AI (0.0-0.9); SJOGREN'S ANTI-SS-B <0.2 AI (0.0-0.9); SMITH ANTIBODIES <0.2 AI (0.0-0.9)
--- NOTE | 2022-01-31 03:57 | NUR ---
SHIFT SUMMARY ADMITTED FOR PNEUMONIA/EMPHYSEMA. FULL CODE. PLAN IS FOR IV ANTIB RX, STEROIDS. POWERGLIDES IN BUE. CONT PULSE OX IN PLACE. DR. MIRANDA IS PULMONOLOGY CONSULT. 5 LPM O2 VIA OXIMIZER. RT DID INCREASE O2 TO 6 LPM O2 WHEN PT IS ASLEEP. SHE DID REFUSE CPAP. FAMILY IS PLANNING A CONFERENCE WITH PHYSICIANS TODAY. HX: COVID+ 12/29, ANXIETY/BIPOLAR, EMPHYSEMA. 1 ASSIST - BRP, REGULAR DIET. A&O X4. NO NEW CONCERNS THIS SHIFT.
[2022-01-31 06:00] LABS: BASOPHILS ABSOLUTE AUTO 0.03 K/mm3 (0.00-0.23); BASOPHILS PERCENT AUTO 0 % (0-2); EOSINOPHILS PERCENT AUTO 0 % (0-6); Hemoglobin 7.1 g/dL (11.5-16.0); IMMATURE GRAN ABSOLUTE AUTO 0.28 K/mm3 (0.00-0.10); IMMATURE GRAN PERCENT AUTO 2 % (0-1); LYMPHOCYTES ABSOLUTE AUTO 0.22 K/mm3 (0.84-5.20); LYMPHOCYTES PERCENT AUTO 1 % (21-46); MONOCYTES ABSOLUTE AUTO 0.78 K/mm3 (0.16-1.47); MONOCYTES PERCENT AUTO 5 % (4-13); Mean Corpuscular HGB 29.1 pg (26.0-34.0); Mean Corpuscular HGB Conc 32.3 g/dL (31.5-36.5); Mean Corpuscular Volume 90 fL (80-100); Mean Platelet Volume 9.9 fL (9.1-12.4); NEUTROPHILS ABSOLUTE AUTO 14.64 K/mm3 (1.96-9.15); NEUTROPHILS PERCENT AUTO 92 % (41-73); Platelet Count 430 K/mm3 (150-400); RDW Coefficient Variation 14.8 % (11.7-14.2); RDW Standard Deviation 48.6 fL (35.1-46.3); Red Blood Cell Count 2.44 M/mm3 (3.80-5.20); White Blood Cell Count 15.95 K/mm3 (4.00-11.30)
[2022-01-31 06:23] LABS: Albumin, Blood 1.5 g/dL (3.4-5.0); Albumin/Globulin Ratio 0.4 (0.8-1.8); Bilirubin, Total 0.3 mg/dL (0.1-1.0); Bun/Creatinine Ratio 13.5 (12.0-20.0); Creatinine, Blood 0.81 mg/dL (0.40-1.00); Globulin, Blood 3.5 g/dL (2.2-4.0); Potassium, Blood 4.1 mmol/L (3.5-5.5)
[2022-01-31 12:25] LABS: Vancomycin, Trough 21.6 ug/mL (5.0-10.0)
[2022-01-31 16:10] LABS: L. PNEUMOPHILA (BAL) Not Detected (Not Detected); PAN LEGIONELLA (BAL) Not Detected (Not Detected)
--- NOTE | 2022-01-31 18:31 | NUR ---
PATIENT CONTINUES WITH SOB AND DECREASED SATS. RESPIRATORY THERAPY HAS BEEN WORKING WITH PATIENT AND HAS PLACED A HIGH FLOW NC SINCE O2 IS UPWARD OF 6L. PATIENT DENIES CHEST PAINS. SHE IS UP AND INDEPENDENT IN HER ROOM. OT ASSESSED AND WALKED WITH PATIENT. RECOMMENDS THAT STAFF CONTINUE TO WALK WITH PATIENT SHE DOES WELL WHILE WALKING. OT WOULD LIKE THE PATIENT TO BE WALKING IN HER ROOM WHEN ABLE. PATIENT DIDN'T EAT MUCH OF DINNER, BUT FAMILY HAD PROVIDED A SWEET ALTERNATIVE MEAL SHORTLY BEFORE DINNER TIME. VANCO TROUGH WAS CRITICAL HIGH DURING THIS SHIFT, SO ONE DOSE WAS HELD. ZOSYN RUNNING NORMAL. NEITHER POWERGLIDE IS DRAWING EFFECTIVELY AT THIS TIME- BOTH FLUSH PERFECTLY.
[2022-02-01 02:25] LABS: Hematocrit 22.5 % (33.0-51.0); Hemoglobin 7.6 g/dL (11.5-16.0)
[2022-02-01 06:02] LABS: BASOPHILS ABSOLUTE AUTO 0.03 K/mm3 (0.00-0.23); BASOPHILS PERCENT AUTO 0 % (0-2); EOSINOPHILS PERCENT AUTO 0 % (0-6); Hematocrit 22.5 % (33.0-51.0); Hemoglobin 7.6 g/dL (11.5-16.0); IMMATURE GRAN ABSOLUTE AUTO 0.48 K/mm3 (0.00-0.10); IMMATURE GRAN PERCENT AUTO 3 % (0-1); LYMPHOCYTES ABSOLUTE AUTO 0.25 K/mm3 (0.84-5.20); LYMPHOCYTES PERCENT AUTO 2 % (21-46); MONOCYTES ABSOLUTE AUTO 0.58 K/mm3 (0.16-1.47); MONOCYTES PERCENT AUTO 4 % (4-13); Mean Corpuscular HGB 29.6 pg (26.0-34.0); Mean Corpuscular HGB Conc 33.8 g/dL (31.5-36.5); Mean Corpuscular Volume 88 fL (80-100); Mean Platelet Volume 10.1 fL (9.1-12.4); NEUTROPHILS ABSOLUTE AUTO 15.16 K/mm3 (1.96-9.15); NEUTROPHILS PERCENT AUTO 92 % (41-73); Platelet Count 515 K/mm3 (150-400); RDW Coefficient Variation 14.9 % (11.7-14.2); RDW Standard Deviation 47.8 fL (35.1-46.3); Red Blood Cell Count 2.57 M/mm3 (3.80-5.20)
--- NOTE | 2022-02-01 06:09 | NUR ---
Patient slept most of the night. Remains A/Ox4 and calls appropriately. Sats around 93% on 6L NC. At beginning of shift she would desat to low 80's with coughing fit and take 2-3 minutes at 8-9L to recover. Towards end of shift patient was needing 8-9L just to maintain 90%, tachypneic with RR of 36 and c/o SOB. RT called and breathing treatment applied, patient now remains on 8L NC. H&H was noted to have large drop on previous days labs so repeat H&H ordered. Patient with low grade temp with high at 99.9, blankets pulled and PRN given with good relief. SBP in low 100's but MAP remains in 70's. Will report to aamir NASCIMENTO.
[2022-02-01 06:26] LABS: Albumin, Blood 1.6 g/dL (3.4-5.0); Albumin/Globulin Ratio 0.4 (0.8-1.8); Bilirubin, Total 0.4 mg/dL (0.1-1.0); Bun/Creatinine Ratio 14.8 (12.0-20.0); Calcium, Blood 8.6 mg/dL (8.5-10.1); Creatinine, Blood 0.95 mg/dL (0.40-1.00); Globulin, Blood 3.7 g/dL (2.2-4.0); Potassium, Blood 3.9 mmol/L (3.5-5.5); Total Protein, Blood 5.3 g/dL (6.4-8.2)
--- NOTE | 2022-02-01 07:48 | NUR ---
During shift change report, patient was heard to be on the floor in the bathroom. Patient previously not impulsive and called appropriately. Patient remains A/Ox4 with neuros fully intact. Said "I just felt dizzy" regarding falling. Lift used to get patient back in bed, RT called for temporary increase in O2 needs, and physician contacted for head CT order and CXR. Handoff given to oncoming nurse.
--- NOTE | 2022-02-01 10:21 | NUR ---
LATE ENTRY DURING SHIFT REPORT NOC NURSE WAS PROVIDING REPORT. PT FELL IN THE BATHROOM OF HER ROOM. NOC NURSE AND STAFF USED LIFT TO PLACE PT BACK TO BED. NOC NURSE CALLED MD. ORDERS WERE RECEIVED FOR CT HEAD AND CXR. RT IN THE ROOM ASSISTING WITH O2 LEVELS AND GIVING BREATHING TREATMENTS. REPORT WAS COMPLETED. ASSUMED CARE OF PT.
--- NOTE | 2022-02-01 10:24 | NUR ---
MD IN TO SEE PT. CT OF THE HEAD WAS DONE AND CXR DONE. MD WANTS PT TRANSFERRED TO PCU. INCENTIVE SPIROMETER INSTRUCTIONS PROVIDED TO PT MD REQUESTED PT USE AN IS. PT ON HI-SID O2 AT 9 L's. BI-OX SHOWS SATS AT 92%. WHEN PT COUGHS SATS WILL DROP TO THE 70's WITH DIFFICULTY BRINGING THEM BACK UP. PT C/O NAUSEA AND JONES. ZOFRAN PO AND TRAMADOL GIVEN. HAVE BEEN UNABLE TO GIVE MORNING MEDS D/T NAUSEA. DTR IS AT BEDSIDE.
[2022-02-01 11:10] LABS: ATYPICAL PANCA <1:20 titer (Neg:<1:20); CYTOPLASMIC (C-ANCA) <1:20 titer (Neg:<1:20); PERINUCLEAR (P-ANCA) <1:20 titer (Neg:<1:20)
--- NOTE | 2022-02-01 11:24 | NUR ---
LATE ENTRY/TRANSFER TO U 1055: REPORT CALLED TO IDANIA ESPINO. 1110: PT TRANSFERRED TO PCU ROOM 19.
--- NOTE | 2022-02-01 14:36 | NUR ---
TRANSFER TO PCU: PATIENT TRANSFER TO PCU AROUND 1100AM. ALERT AND ORIENTED X3-4. PERRLA. DENIES NUMBNESS/TINGLING. BILATERAL ELECTRICIAN OFFICE STRENGTH. OVERALL NOTED TO BE WEAK. USED SLIDE SHEET TO TRANSFER. VOICE SOFT AND SLOW. OCCASIONALLY ANXIOUS AND CONFUSED PER FAMILY AT BEDSIDE. WEARING 9L HIGH FLOW UPON TRANSFER SATING 89%. TITRATED UP TO 12L, AND REMAINS AT 12L WITH HUMIDIFICATION. CPT ORDERED AND PATIENT TOLERATED WELL. RT IN FOR BREATHING TREATMENTS. LUNGS SOUNDING TIGHT WITH CRACKLES IN BASES. OCCASIONAL MOIST SOUNDING COUGH WITH THICK YELLOW SPUTUM. SUCTION AT BEDSIDE. RR 30'S. TELE SHOWING SINUS TACH WITH HR 90-110'S. BP STABLE. PPP. NO SIGNS OF EDEMA. DENIES CHEST PAIN/PRESSURE/PALPITATIONS. DENIES ABDOMINAL PAIN. INTERMIT NAUSEA. ABLE TO TAKE AM PILLS. PURE WICK SET UP TO HELP EASE PATIENT RESP STATUS BY NOT GETTING UP MUCH AND RECENT FALL. BOWEL MOVEMENT X1. EATING SMALL AMOUNTS. CT PE STUDY COMPLETED AND RESULTS CALLED INTO DR. OMNSALVE. NO NEW ORDERS FOR THIS RN TO PLACE. CALL LIGHT IN REACH. FAMILY UPDATED AT BEDSIDE. BED ALARM IN PLACE. WILL CONTINUE TO MONITOR.
--- NOTE | 2022-02-01 16:37 | NUR ---
SPOKE WITH DR. MONSALVE REGARDING 40MG IV LASIX DOSE AND BP OF 91/60. ORDERS TO REDUCE DOSE TO [address]
--- NOTE | 2022-02-01 17:58 | NUR ---
SHIFT SUMMARY: NO ACUTE CHANGES SINCE LAST NOTE. REMAINS ALERT AND ORIENTED X4. ON 7L HIGH FLOW NASAL CANNULA SATING LOW-MID 90'S. CPT COMPLETED X2 THIS SHIFT WITH GOOD RESULTS. TELE CONTINUES TO SHOW SR-ST 80-110'S. BP ON SOFT SIDE. IV LASIX GIVEN, SEE PREVIOUS NOTE. PUREWICK IN PLACE WELL ATTENDS. EATING DINNER AT THIS TIME. BOWEL MOVEMENT X2. DR. ESPINOSA IN TO SEE PATIENT AND FAMILY. PLAN FOR ECHO AND BARRIUM SWALLOW TOMORROW. NO CHANGES TO DIET AT THIS TIME.
--- NOTE | 2022-02-01 22:08 | NUR ---
ASSUMED CARE NOTE: ASSUMED CARE OF PT AT 1900. PT IS ALERT AND ORIENTED TO PLACE, SELF AND MONTH, UNABLE TO STATE DAY/YEAR. PT DEFENSIVE WHEN ORIENTATION QUESTIONS ARE ASKED. SHE IS WEAK T/O, REQUIRES ASSISTANCE WITH TURNS. PT C/O PAIN TO HEAD AND NECK, TRAMADOL GIVEN PER MAR, WITH GOOD EFFECT. PT IN SR WITH HR IN THE 80-90'S, BLOOD PRESSURE STABLE. TRACE EDEMA NOTED TO BLE. PT ON 8 LITERS OF 02 VIA HUMITIFIED HIGH-FLOW NC, SpO2 92%, NO ACUTE RESP DISTRESS NOTED AT THIS TIME. PUREWICK IN PLACE TO WALL SUCITON. WILL CONTINUE WITH PLAN OF CARE.
--- NOTE | 2022-02-02 01:55 | NUR ---
UPDATE AT APPROX 0130, PT SET OFF BED ALARM, MULTIPLE STAFF MEMBERS RESPONDED TO ROOM. PT WAS ATTEMPTING TO GET OUT OF BED TO URINATE, HOWEVER, SHE HAS A PUREWICK IN PLACE. ATTEMPTED TO REORIENT PT, NOT SUCCESSFUL, SHE IS DROWSY. PT REPOSITIONED IN BED, BED ALARM PLACED. PT HAD 1000ML OF CLEAR URINE OUTPUT EARLIER THIS SHIFT WHILE AWAKE. HAS NOT VOIDED IN THE LAST 4HRS, WILL REASSESS NEEDED.
--- NOTE | 2022-02-02 06:10 | NUR ---
SHIFT SUMMARY: SEE PREVIOUS NOTES. PT HAS BEEN SLEEPING BETWEEN CARE, ABLE TO RESPOND TO VERBAL STIMULI. PT EYE LASH EXTENTIONS GLUED TO THE BOTTOM EYELID, PT REFUSED TO LET THIS NURSE REMOVE THEM, PT STATES SHE WILL REMOVE THEM WHEN SHE WAKES UP. PT DENIES ANY PAIN AT THIS TIME. PT HAS BEEN ON 8-12 L OF 02 VIA HFNC TO MAINTAIN SPO2 ABOVE 90%, WHILE SLEEPING PT BREATHES VIA MOUTH AND REQUIRES 11-12 L/MIN. PT HAS BEEN IN SR WITH HR IN THE 70-80'S, SBP 90'S-DBP 60'S. PT HAS BEEN TOLERATING TAKING ORAL MEDS WITH WATER. PUREWICK IN PLACE, 1300ML OF URINE OUTPUT NOTED. NO BM THIS SHIFT. BED AT LOWEST LEVEL, BED ALARM IN PLACE. CONTINUING WITH PLAN OF CARE.
[2022-02-02 06:39] LABS: BASOPHILS ABSOLUTE AUTO 0.03 K/mm3 (0.00-0.23); BASOPHILS PERCENT AUTO 0 % (0-2); EOSINOPHILS PERCENT AUTO 0 % (0-6); Hematocrit 23.2 % (33.0-51.0); Hemoglobin 7.7 g/dL (11.5-16.0); IMMATURE GRAN ABSOLUTE AUTO 0.61 K/mm3 (0.00-0.10); IMMATURE GRAN PERCENT AUTO 4 % (0-1); LYMPHOCYTES ABSOLUTE AUTO 0.24 K/mm3 (0.84-5.20); LYMPHOCYTES PERCENT AUTO 2 % (21-46); MONOCYTES ABSOLUTE AUTO 0.55 K/mm3 (0.16-1.47); MONOCYTES PERCENT AUTO 4 % (4-13); Mean Corpuscular HGB 29.3 pg (26.0-34.0); Mean Corpuscular HGB Conc 33.2 g/dL (31.5-36.5); Mean Corpuscular Volume 88 fL (80-100); Mean Platelet Volume 9.7 fL (9.1-12.4); NEUTROPHILS ABSOLUTE AUTO 12.52 K/mm3 (1.96-9.15); NEUTROPHILS PERCENT AUTO 90 % (41-73); Platelet Count 528 K/mm3 (150-400); RDW Standard Deviation 47.8 fL (35.1-46.3); Red Blood Cell Count 2.63 M/mm3 (3.80-5.20); White Blood Cell Count 13.95 K/mm3 (4.00-11.30)
[2022-02-02 07:23] LABS: Albumin, Blood 1.5 g/dL (3.4-5.0); Albumin/Globulin Ratio 0.4 (0.8-1.8); Bilirubin, Total 0.4 mg/dL (0.1-1.0); Bun/Creatinine Ratio 15.4 (12.0-20.0); Calcium, Blood 8.7 mg/dL (8.5-10.1); Creatinine, Blood 0.91 mg/dL (0.40-1.00); Globulin, Blood 3.8 g/dL (2.2-4.0); Potassium, Blood 3.9 mmol/L (3.5-5.5); Total Protein, Blood 5.3 g/dL (6.4-8.2)
--- NOTE | 2022-02-02 12:15 | NUR ---
REASSESSMENT PT CONTINUES TO HAVE HIGH OXYGEN NEEDS. SHE HAS BEEN ON 10L AT REST THIS MORNING AND NEEDS UP TO 13L WITH ACTIVITY AND EATING. LUNGS ARE COARSE AND PT HAS STRONG COUGH, ALTHOUGH SHE IS ONLY GETTING UP A SMALL AMT OF SPUTUM. COUGHING FITS DROP HER SATS TO THE 70S, EVEN WITH 13L HI FLOW NC, BUT PT RECOVERS QUICKLY AFTER. LASIX GIVEN THIS AM PER DR. MONSALVE. PT HAS PUREWICK IN PLACE. PLACEMENT CHECKED AND CHANTALE CARE COMPLETED THIS MORNING. PT ONLY ATE A SMALL AMT OF BREAKFAST, BUT DRANK ALL OF HER SMOOTHIE. NO SIGNS OF ASPIRATION NOTED WHEN PT IS EATING OR DRINKING. PLAN FOR HER TO GO TO BARIUM SWALLOW IN ABOUT AN HOUR. STILL WAITING FOR ECHO TO BE DONE TODAY TOO. PT'S LUZ AND HAVE BEEN AT THE BEDSIDE AND UPDATED.
[2022-02-02 12:26] LABS: Vancomycin, Trough 15.7 ug/mL (5.0-10.0)
--- NOTE | 2022-02-02 12:49 | NUR ---
PT TO BARIUM SWALLOW
--- NOTE | 2022-02-02 13:40 | NUR ---
PT BACK FROM BARIUM SWALLOW. CHANGED PT'S ATTENDS AND PLACED NEW PUREWICK. FAMILY AT THE BEDSIDE.
--- NOTE | 2022-02-02 17:17 | NUR ---
SHIFT SUMMARY PT HAD AN EPISODE THIS AFTERNOON WITH RT IN THE ROOM WHERE SHE DESATURATED TO THE 80S AND COULD NOT GET ABOVE 90% WITH THE HI SID CANNULA SO PT ON AIRVO NOW. LUNGS ARE COARSE. SR, BP STABLE. [employer] HAS BEEN WORKING OFF AND ON THROUGHOUT THE SHIFT REQUIRING SOME ATTENDS CHANGES. CHANTALE AREA IS RED BUT INACT. PT HAS HAD MULTIPLE FAMILY MEMBERS VISIT THROUGHOUT THE DAY AND HAVE BEEN UPDATED THROUGHOUT THE SHIFT.
--- NOTE | 2022-02-02 22:15 | NUR ---
ELEVATED TEMP PT HAD A TEMP OF 100.6, HOT TO TOUCH, PT HAD A HEATING BLANKET ON, BLANKET WAS REMOVED, FAN PROVIDED. PT REMAINS A&O X4, WEAK, TIRED. PT RECIEVED TYLENOL AT APPROX 1830, [facility], LOG DECKMAN NOTIFIED.
[2022-02-03 05:45] LABS: BASOPHILS ABSOLUTE AUTO 0.01 K/mm3 (0.00-0.23); BASOPHILS PERCENT AUTO 0 % (0-2); EOSINOPHILS ABSOLUTE AUTO 0.03 K/mm3 (0.00-0.68); EOSINOPHILS PERCENT AUTO 0 % (0-6); Hematocrit 22.4 % (33.0-51.0); Hemoglobin 7.4 g/dL (11.5-16.0); IMMATURE GRAN ABSOLUTE AUTO 0.72 K/mm3 (0.00-0.10); IMMATURE GRAN PERCENT AUTO 5 % (0-1); LYMPHOCYTES ABSOLUTE AUTO 0.27 K/mm3 (0.84-5.20); LYMPHOCYTES PERCENT AUTO 2 % (21-46); MONOCYTES ABSOLUTE AUTO 0.51 K/mm3 (0.16-1.47); MONOCYTES PERCENT AUTO 4 % (4-13); Mean Corpuscular Volume 88 fL (80-100); Mean Platelet Volume 9.9 fL (9.1-12.4); NEUTROPHILS ABSOLUTE AUTO 12.77 K/mm3 (1.96-9.15); NEUTROPHILS PERCENT AUTO 89 % (41-73); Platelet Count 523 K/mm3 (150-400); RDW Coefficient Variation 15.4 % (11.7-14.2); RDW Standard Deviation 48.9 fL (35.1-46.3); Red Blood Cell Count 2.55 M/mm3 (3.80-5.20); White Blood Cell Count 14.31 K/mm3 (4.00-11.30)
[2022-02-03 06:01] LABS: Bun/Creatinine Ratio 18.7 (12.0-20.0); Calcium, Blood 8.5 mg/dL (8.5-10.1); Creatinine, Blood 0.86 mg/dL (0.40-1.00); Potassium, Blood 3.8 mmol/L (3.5-5.5)
--- NOTE | 2022-02-03 08:29 | NUR ---
PT'S O2 NEEDS HAVE INCREASED THIS AM, MORE COUGHING EPISODES NOTED. PT ASKS THAT MORNING ORAL MEDS BE HELD FOR A BIT WHILE SHE CATCHES HER BREATH, ZOSYN IS INFUSING AT THIS TIME. VICENTE MONTERO CHANGED BY SAMMIE SEARS
--- NOTE | 2022-02-03 17:43 | NUR ---
SHIFT NOTE PT WAS ON AIRVO AT THE BEGINING OF THE SHIFT, SHE WAS CHANGED TO BIPAP AFTER CONSULTING WITH DR ESPINOSA TODAY HER O2 NEEDS HAVE BEEN UP AND DOWN THROUGHOUT THE DAY. BIPAP WAS INITIALLY NOT WELL TOLERATED THE PRESSURE WAS TOO HIGH PER PT, RT TO ROOM AND PRESSURES CHANGED TO 10/5 WITH FIO2 OF 60% WITH SPO2 GREATER THAN 95%, SHE IS NOW TOLERATING BIPAP WELL AT THIS TIME. PT OTHERWISE IS ABLE TO SWALLOW PILLS WELL WITH WATER, NO SIGNS OF ASPIRATION WITH PO MEDS. PT DESATURATES QUICKLY WITH ANY ACTIVITY, WITH A SLOW RECOVERY IN SPO2 PRIOR TO BIPAP PLACEMENT.
[2022-02-03 21:06] LABS: Bicarbonate Venous 33.5 mmol/L (24.0-30.0); PCO2 Venous 44.6 mmHg (38-42); pH Blood Venous 7.49 (7.34-7.37)
[2022-02-04 06:07] LABS: COMPLEMENT C3, SERUM 142 mg/dL (82-167)
[2022-02-04 06:15] LABS: Hematocrit 21.3 % (33.0-51.0); Hemoglobin 7.1 g/dL (11.5-16.0); Mean Corpuscular HGB 29.3 pg (26.0-34.0); Mean Corpuscular HGB Conc 33.3 g/dL (31.5-36.5); Mean Corpuscular Volume 88 fL (80-100); Mean Platelet Volume 9.7 fL (9.1-12.4); Platelet Count 467 K/mm3 (150-400); RDW Coefficient Variation 15.3 % (11.7-14.2); RDW Standard Deviation 49.1 fL (35.1-46.3); Red Blood Cell Count 2.42 M/mm3 (3.80-5.20); White Blood Cell Count 11.68 K/mm3 (4.00-11.30)
[2022-02-04 06:33] LABS: Bun/Creatinine Ratio 14.8 (12.0-20.0); Calcium, Blood 8.4 mg/dL (8.5-10.1); Creatinine, Blood 0.88 mg/dL (0.40-1.00); Potassium, Blood 3.6 mmol/L (3.5-5.5)
[2022-02-04 07:06] LABS: BASOPHILS PERCENT MAN 0 % (0-2); EOSINOPHILS PERCENT MAN 0 % (0-6); LYMPHOCYTES ABSOLUTE MAN 0.11 K/mm3 (0.84-5.20); LYMPHOCYTES PERCENT MAN 1 % (21-46); METAMYELOCYTE ABSOLUTE MAN 0.11 K/mm3 (0.00-0.00); METAMYELOCYTE PERCENT MAN 1 % (0-0); MONOCYTES PERCENT MAN 0 % (4-13); MYELOCYTE ABSOLUTE MAN 0.35 K/mm3 (0.00-0.00); MYELOCYTE PERCENT MAN 3 % (0-0); NEUTROPHILS ABSOLUTE MAN 11.09 K/mm3 (1.96-9.15); SEG NEUTROPHILS PERCENT MAN 95 % (41-73); TOTAL CELLS COUNTED 100
--- NOTE | 2022-02-04 07:27 | NUR ---
MS. WILBURN CONTINUES TO BE DEPENDENT UPON THE BIPAP FOR OXYGENATION SUPPORT. THE SETTINGS OVERNIGHT WERE 10/5 AT 60%. SHE HAS SEVERE DYSPNEA WITH EXERTION AND BECOMES INCREASINGLY TACHYPNEIC (INTO THE 40S-50S RPM) WITH MINIMAL ACTIVITY. SHE WAS UP TO THE BEDSIDE COMMODE FOR A BOWEL MOVEMENT AT THE BEGINNING OF THE SHIFT AND DID NOT TOLERATE THAT EXERTION WELL. THE DECISION WAS MADE TO KEEP HER BEDREST OVERNIGHT DUE THE RESPIRATORY IMPACT OF THIS ACTIVITY. SHE WAS COMPLIANT WITH WEARING HE BIPAP THROUGHOUT THE NIGHT. DUE TO CONCERN FOR HER RESPIRATORY STATUS, A VBG WAS DRAWN AND THE RESULTS ABNORMAL (SEE EMR) HEMOGLOBIN CONTINUES TO TREND DOWN AND IS 7.1 WITH THIS MORNING'S DRAW. DAUGHTER INDIRA WAS UPDATED REGARDING HER MOTHER'S NIGHT.
[2022-02-04 11:18] LABS: Vancomycin, Trough 14.4 ug/mL (5.0-10.0)
--- NOTE | 2022-02-04 13:28 | NUR ---
PT RESTING COMF IN ROOM WITH SEVERAL FAMILY MEMBERS IN THE ROOM. RN IS AT LUNCH, WILL CONSULT WITH RN PRIOR TO MAKING VISIT.
--- NOTE | 2022-02-04 16:55 | NUR ---
Shift Summary Pt alert, oriented; unsure of date/time. Forgetful at times. Pt reports pain to back and neck, medicated per orders. Pt sob with even minimal activity, desaturates quickly to 77-82%, take a few minutes to full recover. Pt started this am on BIPAP 10/5 at 60%, transitiioned to Airvo and is currently on 40l and 75%, breahitng is even but labored at times. Pt denies chest pain, nausea, dizziness and numb/tingling. Tele sinus/sinus tach, bp stable, trace edema noted to ble. Pt recieving iv antibiotics. Pt febrile this afternoon 101.5 Tmax, notified Dr Bazan, new orders for blood cultures. Other vss. No other acute changes noted. Will continue to monitor unitl report given to oncoming rn.
--- NOTE | 2022-02-04 22:18 | NUR ---
PT REFUSING BIPAP. INFORMED PT THAT IF SHE SUSTAINS LOW O2 SATS, WE HAVE ORDERS FOR BIPAP. PATIENT STATES THAT SHE UNDERSTANDS BUT ASKS TO WAIT UNTIL ABSOLUTELY NECESSARY TO APPLY BIPAP. RT MADE AWARE.
--- NOTE | 2022-02-05 03:00 | NUR ---
PT DESATTED INTO 30s WHILE GETTING ON BEDPAN. PLACED ON BIPAP AT 100% FIO2 AT THIS TIME. PT ABLE TO RECOVER O2 SATS. RT MADE AWARE. PT BREATHING 50-60 TIMES A MINUTE. CALLED MD AND GOT PRN ATIVAN ORDERED. CALLED DR. ESPINOSA AND INFORMED HIM OF EVENTS. HE STATED THAT WE CAN TRANSFER TO ICU IF NEEDED. ICU CHARGE NOTIFIED OF EVENTS WELL.
[2022-02-05 05:24] LABS: Albumin, Blood 1.6 g/dL (3.4-5.0); Albumin/Globulin Ratio 0.4 (0.8-1.8); Bilirubin, Total 0.6 mg/dL (0.1-1.0); Bun/Creatinine Ratio 14.5 (12.0-20.0); Calcium, Blood 8.6 mg/dL (8.5-10.1); Creatinine, Blood 0.76 mg/dL (0.40-1.00); Globulin, Blood 4.1 g/dL (2.2-4.0); Potassium, Blood 3.4 mmol/L (3.5-5.5); Total Protein, Blood 5.7 g/dL (6.4-8.2)
[2022-02-05 05:57] LABS: BASOPHILS ABSOLUTE AUTO 0.03 K/mm3 (0.00-0.23); BASOPHILS PERCENT AUTO 0 % (0-2); EOSINOPHILS ABSOLUTE AUTO 0.01 K/mm3 (0.00-0.68); EOSINOPHILS PERCENT AUTO 0 % (0-6); Hematocrit 25.9 % (33.0-51.0); Hemoglobin 8.7 g/dL (11.5-16.0); IMMATURE GRAN ABSOLUTE AUTO 0.86 K/mm3 (0.00-0.10); IMMATURE GRAN PERCENT AUTO 5 % (0-1); LYMPHOCYTES ABSOLUTE AUTO 0.38 K/mm3 (0.84-5.20); LYMPHOCYTES PERCENT AUTO 2 % (21-46); MONOCYTES ABSOLUTE AUTO 0.58 K/mm3 (0.16-1.47); MONOCYTES PERCENT AUTO 4 % (4-13); Mean Corpuscular HGB Conc 33.6 g/dL (31.5-36.5); Mean Corpuscular Volume 86 fL (80-100); Mean Platelet Volume 9.9 fL (9.1-12.4); NEUTROPHILS PERCENT AUTO 89 % (41-73); Platelet Count 538 K/mm3 (150-400); RDW Coefficient Variation 15.4 % (11.7-14.2); RDW Standard Deviation 48.4 fL (35.1-46.3); White Blood Cell Count 16.66 K/mm3 (4.00-11.30)
--- NOTE | 2022-02-05 06:17 | NUR ---
OVERNIGHT, PATIENT ROTATED FROM AIRVO TO BIPAP 14/8 FIO2 80%. PT DESATS EXTREMELY QUICKLY WITH LITTLE EXERTION. PT REFUSED BIPAP AT BEGINNING OF NIGHT, EN EXPLAINED TO HER THE NECESSITY OF HER OXYGENATION. PT HAS BEEN NPO SINCE MIDNIGHT FOR PLANS TO TRACH AND POSSIBLY PEG TODAY. DAUGHTER, LUCIANA, AT BEDSIDE. CXR TAKEN THIS AM. LEFT UPPER ARM IV REMOVED AND NEW IV PLACED. PT RR RANGING FROM 45-60. ONE TIME ATIVAN DOSE GIVEN. PHERYVES ORDERED PRN FOR NAUSEA. CALLED DR. ESPINOSA AND INFORMED HIM OF EVENTS AND HE STATED THAT HE IS OKAY WITH MOVING PT TO ICU IF NECESSARY. ICU CHARGE NURSE MADE AWARE WELL.
[2022-02-05 08:01] LABS: Source, Urine Foley catheter
[2022-02-05 08:50] LABS: Appearance, Urine Clear (Clear); Bilirubin, Urine Neg (Neg); Blood, Urine Neg (Neg); Color, Urine Yellow (P-Yellow); Glucose Qualitative, Urine Neg (Neg); Ketones, Urine 2+ (Neg); Leukocyte Esterase, Urine Neg (Neg); Nitrite, Urine Neg (Neg); Protein, Urine 2+ (Neg); Urobilinogen, Urine NORM (Normal)
[2022-02-05 09:10] LABS: Bacteria Rare /hpf; Granular Casts 0-2 /lpf (0); Red Blood Cells, Urine 0-2 /hpf (0-2); Squamous Epithelial Cells Rare /hpf (Few); White Blood Cells, Urine 0-2 /hpf (0-5)
--- NOTE | 2022-02-05 10:29 | NUR ---
PT TRANSFERED TO ICU FROM PCU FOR PLANNED INTUBATION FOLLOWED BY TRACH PLACEMENT. DR. HOGAN TO INTUBATION, DR LUIS TO PLACE BEDSIDE PERC TRACH. PT AWAKE AND ALERT, DENIES C/O PAIN. SOB W EXERTION, SATS DROP INTO MID LOW 80% W MOVEMENT/SPEECH. DR HOGAN NOTIFIED. PT ON AIRVO 40L/90%. LUNGS W COARSE CRACKLES T/O, SOME SCATTERED WHEEZES. BP STABLE. PT WARM AND DIAPHORETIC. ZOSYN INFUSING.
--- NOTE | 2022-02-05 11:15 | NUR ---
Transfer note Pt alert, oriented, anxious but cooperative with care. PT resting in bed, desaturates with minimal activity/talking, placed lloyd this am. Pt reports headache and generalized body ache, mediated per emar. Pt febrile 101.8, medicated per emar. Pt sob at rest, spo2 >90% on 8 90% fio2, resp rate 30-40's while sleeping or resting, resp rate touching 50's with ecertion or anxiety. Ls coarse t/o dim bases. Transistioned to airvo at approx 0730, 45l 90% fio2, resp rate continues at 30-40. Tele sinus/sinus tach, bp stable, trace to 1+pitting edema noted to ble. Abd mild distention, soft, tender, with normoactive bt. Redness noted under bilateral breats. Other vss. Pt transfered to ICU at approx 1025 for planned trach placement. Report given to yovanny Preciado assuming care of patient.
[2022-02-05 12:07] LABS: ANTI-DSDNA ANTIBODIES <1 IU/mL (0-9); RNP ANTIBODIES <0.2 AI (0.0-0.9); SJOGREN'S ANTI-SS-A <0.2 AI (0.0-0.9); SJOGREN'S ANTI-SS-B <0.2 AI (0.0-0.9); SMITH ANTIBODIES <0.2 AI (0.0-0.9)
--- NOTE | 2022-02-05 13:38 | NUR ---
PT INTUBATED BY DR HOGAN AT 1112 FOR PLANNED BEDSIDE PERC TRACH PLACEMENT. 7.0 ETT PLACED 23CM AT TEETH. PROPOFOL GTT STARTED AT 20MCG AND INCREASED TO 30MCG FOR INTUBATION, WILFRID 50 GIVEN AT [address] HOGAN. TIME OUT FOR BEDSIDE TRACH PREFORMED AT 1145. TRACH PREFORMED BY DR TOBY HOGAN ASSIST. PROCEDURE STARTED AT 1147, BRONCH STARTED, WILFRID 50MG GIVEN AT [address] HOGAN, PROP INCREASED TO 40MCG. AT 1157 TRACH IN, 6.0 CUFFED, VENT SETTINGS 22/400/100%/5. WAS UPDATED PRIOR TO TRACH. PT'S AND TWO DAUGHTERS SABRINA BACK AFTER TRACH AND FULLY UPDATED. FAMILY HAS QUESTIONS REGARDING POSSIBLE PEG PLACEMENT; DR MEDINA NOTIFIED AND WILL SEE THEM TODAY. PT SEUN PROCEDURE WELL OVER ALL. NO ACTIVE BLEEDING AT TRACH SITE AT THIS TIME. FENTANYL 50MCG GIVEN POST PROCEDURE PER DR HOGAN. PROPOFOL DECREASED TO 30MCG, WILL CONT TO TITRATE SEDATION DOWN AND OFF SEUN PER DR HOGAN.
--- NOTE | 2022-02-05 14:19 | NUR ---
BURDEN AT BEDSIDE UPDATING PT'S FAMILY AND ANSWERING QUESTIONS. PROPOFOL DECREASED TO 15MCG.
[2022-02-05 15:05] LABS: Source, Urine Foley catheter
[2022-02-05 15:10] LABS: Appearance, Urine Hazy (Clear); Bilirubin, Urine Neg (Neg); Blood, Urine 1+ (Neg); Color, Urine Yellow (P-Yellow); Glucose Qualitative, Urine Neg (Neg); Ketones, Urine 3+ (Neg); Leukocyte Esterase, Urine Neg (Neg); Nitrite, Urine Neg (Neg); Protein, Urine 2+ (Neg); Urobilinogen, Urine NORM (Normal)
[2022-02-05 15:24] LABS: Red Blood Cells, Urine 0-2 /hpf (0-2)
[2022-02-05 15:25] LABS: Amorphous Light (0-Heavy); Bacteria Mod /hpf; Squamous Epithelial Cells Rare /hpf (Few)
[2022-02-05 15:26] LABS: Renal Epithelial Few /hpf (0-Rare)
--- NOTE | 2022-02-05 15:37 | NUR ---
PROPOFOL OFF. PT AWAKE AND ALERT, ABLE TO FOLLOW COMMANDS AND COMMUNICATE NEEDS. RESTRAINTS DC'D. DR HOGAN AT BEDSIDE SPEAKING W PT AND FAMILY.
--- NOTE | 2022-02-05 16:59 | NUR ---
DR HOGAN PLACED PT ON SPONT AROUND 1600 26/10 60%. PT SEUN WELL. FENTANYL GIVEN FOR TRACH INCISION PAIN. VERY SMALL AMT OF BLEEDING TO DRAINAGE SPONGE. PT ABLE TO WRITE NEEDS ON PAPER.
--- NOTE | 2022-02-05 18:02 | NUR ---
PT MOVED TO ICU FROM PCU IN PREP FOR INTUBATION AND TRACH PLACEMENT. PT DAUGHTER, INDIRA IS IN ICU WR, STOPPED IN AND INTRODUCED MYSELF. ADVISED RIGHT NOW WASNT A GOOD TIME TO TALK, WILL COME BACK AT A LATER DATE FOR CONSULT.
[2022-02-06 04:49] LABS: BASOPHILS ABSOLUTE AUTO 0.01 K/mm3 (0.00-0.23); BASOPHILS PERCENT AUTO 0 % (0-2); EOSINOPHILS ABSOLUTE AUTO 0.05 K/mm3 (0.00-0.68); EOSINOPHILS PERCENT AUTO 1 % (0-6); Hematocrit 21.8 % (33.0-51.0); IMMATURE GRAN PERCENT AUTO 5 % (0-1); LYMPHOCYTES ABSOLUTE AUTO 0.23 K/mm3 (0.84-5.20); LYMPHOCYTES PERCENT AUTO 2 % (21-46); MONOCYTES ABSOLUTE AUTO 0.41 K/mm3 (0.16-1.47); MONOCYTES PERCENT AUTO 4 % (4-13); Mean Corpuscular HGB 28.5 pg (26.0-34.0); Mean Corpuscular HGB Conc 32.1 g/dL (31.5-36.5); Mean Corpuscular Volume 89 fL (80-100); Mean Platelet Volume 9.7 fL (9.1-12.4); NEUTROPHILS ABSOLUTE AUTO 8.86 K/mm3 (1.96-9.15); NEUTROPHILS PERCENT AUTO 88 % (41-73); Platelet Count 396 K/mm3 (150-400); RDW Coefficient Variation 15.5 % (11.7-14.2); RDW Standard Deviation 49.8 fL (35.1-46.3); Red Blood Cell Count 2.46 M/mm3 (3.80-5.20); White Blood Cell Count 10.06 K/mm3 (4.00-11.30)
[2022-02-06 05:08] LABS: Magnesium, Blood 2.1 mg/dL (1.6-2.4)
[2022-02-06 05:09] LABS: Albumin, Blood 1.3 g/dL (3.4-5.0); Albumin/Globulin Ratio 0.4 (0.8-1.8); Bilirubin, Total 0.6 mg/dL (0.1-1.0); Bun/Creatinine Ratio 17.8 (12.0-20.0); Calcium, Blood 8.1 mg/dL (8.5-10.1); Creatinine, Blood 0.67 mg/dL (0.40-1.00); Globulin, Blood 3.4 g/dL (2.2-4.0); Phosphorus, Blood 2.1 mg/dL (2.5-4.9); Potassium, Blood 3.3 mmol/L (3.5-5.5); Total Protein, Blood 4.7 g/dL (6.4-8.2)
--- NOTE | 2022-02-06 06:13 | NUR ---
SHIFT SUMMARY: PT'S TEMP ELEVATED THROUGHOUT NIGHT. TYLENOL GIVEN TWICE THIS SHIFT. MAP DROPPED TO LOW 60s, 500ML BOLUS WAS GIVEN WHICH IMPROVED PRESSURE. PT ON ACVC SETTINGS THROUGHOUT NIGHT, TOLERATED WELL. FENTANYL AND TRAMADOL GIVEN ONCE EACH FOR PAIN S/P TRACH PLACEMENT.
[2022-02-06 08:27] LABS: Hematocrit 21.3 % (33.0-51.0)
--- NOTE | 2022-02-06 09:34 | NUR ---
CARE OF PT ASSUMED AT 0700. PT AWAKE, C/O TRACH SITE PAIN 08/18. PT ABLE TO HOLD UP HANDS AND GIVE NUMBER, PT ALSO ABLE TO WRITE NEEDS ON PAPER. FENT 50MCG GIVEN FOR PAIN. DR MEDINA IN THIS AM, UPDATE GIVEN. 1/2NS TO START, CONSULT PLACED TO START TUBE FEEDS. PT GIVEN FULL BED BATH. TRACH DRAINING SS FLUID. LUNGS COARSE T/O, WHEEZES IMPROVED TODAY. PT TO BE PLACED BACK ON SPONT TODAY, CURRENTLY ON AC/VC 22/400/60%/8. DAUGHTER AT BEDSIDE. TEMP 100.9. BP STABLE, PT DID REQUIRE 500CC BOLUS LAST NIGHT FOR HYPOTENSION THAT HAS IMPROVED. HGB 7.0, NO SIGNS OF ACTIVE BLEED.
[2022-02-06 11:42] LABS: Ferritin, Serum 1554 ng/mL (8-252); Iron Serum 15 ug/dL (50-170); Total Iron Binding Capacity 88 ug/dL (250-450); Vancomycin, Trough 9.5 ug/mL (5.0-10.0)
--- NOTE | 2022-02-06 12:11 | NUR ---
ATTEMPTED TO ASSIST PT TO CHAIR W RT AND OT PER DR HOGAN. ABLE TO DANGLE PT FOR A COUPLE OF MINUTES, PT BECAME ANXIOUS, SOB, AND NAUSEATED. SATS DROPPED TO 88% BUT RECOVERED WITHIN 1-2MINS. ZOFRAN GIVEN. PT ASSISTED BACK TO FOWLESR POSITION IN BED. DR HOGAN UPDATED. TYLENOL GIVEN FOR TEMP 101.4. DR HOGAN NOTIFIED, SPUTUM ORDERED. MRSA SWAB OF NARES SENT.
--- NOTE | 2022-02-06 14:52 | NUR ---
LAB CALLED WITH POSITIVE COVID RESULTS FROM [facility] (SEND OUT). DR HOGAN NOTIFIED. FAMILY NOTIFIED. PT PLACED IN ISOLATION.
[2022-02-06 16:26] LABS: Influenza B, PCR NEGATIVE (NEGATIVE); Resp Syncytial Virus, PCR NEGATIVE (NEGATIVE)
[2022-02-06 17:06] LABS: Influenza A, PCR POSITIVE (NEGATIVE)
[2022-02-06 17:08] LABS: SARS-Cov-2 (COVID-19) PCR, MMC POSITIVE (NEGATIVE)
--- NOTE | 2022-02-06 17:52 | NUR ---
JEVITY 1.2 TUBE FEEDS WERE STARTED AT 25CC/HR. RAPID COVID +, PT ALSO TESTED POSITIVE FOR INFLUENZA A. DR HOGAN NOTIFIED. TAMIFLU TO BE STARTED. PT HAS HAD SEVERAL INCONT. LIQUID BM'S. OPTIONS DISCUSSED WITH PT, PT REQUEST RECTAL TUBE, D/T PAIN AND ANXIETY WITH TURNS AND CLEANING.
[2022-02-07 03:46] LABS: Hematocrit 22.1 % (33.0-51.0); Mean Corpuscular HGB 28.6 pg (26.0-34.0); Mean Corpuscular HGB Conc 31.7 g/dL (31.5-36.5); Mean Corpuscular Volume 90 fL (80-100); Mean Platelet Volume 9.4 fL (9.1-12.4); Platelet Count 401 K/mm3 (150-400); RDW Coefficient Variation 15.8 % (11.7-14.2); RDW Standard Deviation 52.1 fL (35.1-46.3); Red Blood Cell Count 2.45 M/mm3 (3.80-5.20); White Blood Cell Count 11.18 K/mm3 (4.00-11.30)
[2022-02-07 04:02] LABS: Albumin, Blood 1.4 g/dL (3.4-5.0); Anion Gap 7 mmol/L (6-16); Blood Urea Nitrogen 12 mg/dL (8-24); Bun/Creatinine Ratio 18.7 (12.0-20.0); CO2, Blood 29 mmol/L (21-32); Calcium, Blood 7.9 mg/dL (8.5-10.1); Chloride, Blood 106 mmol/L (98-108); Creatinine, Blood 0.64 mg/dL (0.40-1.00); Glomerular Filtration Rate 93 (60-); Glucose, Blood 78 mg/dL (70-99); Phosphorus, Blood 2.2 mg/dL (2.5-4.9); Potassium, Blood 3.8 mmol/L (3.5-5.5); Sodium, Blood 142 mmol/L (136-145)
[2022-02-07 04:12] LABS: BAND PERCENT MAN 1 % (0-8); BASOPHILS PERCENT MAN 0 % (0-2); EOSINOPHILS PERCENT MAN 0 % (0-6); LYMPHOCYTES ABSOLUTE MAN 0.11 K/mm3 (0.84-5.20); LYMPHOCYTES PERCENT MAN 1 % (21-46); METAMYELOCYTE ABSOLUTE MAN 0.11 K/mm3 (0.00-0.00); METAMYELOCYTE PERCENT MAN 1 % (0-0); MONOCYTES ABSOLUTE MAN 0.33 K/mm3 (0.16-1.47); MONOCYTES PERCENT MAN 3 % (4-13); MYELOCYTE ABSOLUTE MAN 0.11 K/mm3 (0.00-0.00); MYELOCYTE PERCENT MAN 1 % (0-0); SEG NEUTROPHILS PERCENT MAN 93 % (41-73); TOTAL CELLS COUNTED 100
--- NOTE | 2022-02-07 06:33 | NUR ---
SHIFT SUMMERY PT IS ALERT AND ORIENTED. ABLE TO COMMUNICATE VIA WHITEBOARD. S/P TRACH ON 02/05. PT IS ON VENT AC MODE. SHE HAS HAD A FEW EPISODES OF DESATURATION W/ACTIVITY REQUIRING 100% FIO2 FOR A FEW MINUTES AT A TIME. MINIMAL SECRETIONS WHEN IN LINE SUCTIONING PERFORMED. PT HAS A RECTAL TUBE AND A FRIEDMAN CATHETER. SHE HAS BEEN FEBRILE, MEDICATED W/TYLENOL WHICH WAS EFFECTIVE AT DECREASING TEMP. FENTANYL HAS BEEN USED FOR MGT OF PAIN. MINIMAL DRAINAGE NOTED AROUND TRACH SITE. NG TUBE W/TUBE FEEDING INFUSING. PT HAS BEEN SR ON THE MONITOR AND BP HAS BEEN WNL. LINEN CHANGED. CATH AND CHANTALE CARE PERFORMED.
--- NOTE | 2022-02-07 08:05 | NUR ---
Assumed care at 0700, report received from nightshift RN. Pt in bed, ventilated via trach. Vent settings: AC/VC 22/340/8/60%. Pt A&O, able to communicate via written notes. PG in ROMEO and JOE, wnl. NS tko infusing. Rectal tube in place, Doherty catheter in place. VS stable, no acute needs. Continue to monitor.
--- NOTE | 2022-02-07 19:32 | NUR ---
Shift summary. Pt continued on ventilator via trach today, no changes in vent settings. Pt up to chair for several hours. VS stable throughout shift. No acute changes. Reassessments unremarkable, no change throughout day. See shift assessment for further details. Report given to oncoming RN.
[2022-02-08 04:40] LABS: Hematocrit 21.8 % (33.0-51.0); Hemoglobin 6.9 g/dL (11.5-16.0); Mean Corpuscular HGB 28.6 pg (26.0-34.0); Mean Corpuscular HGB Conc 31.7 g/dL (31.5-36.5); Mean Corpuscular Volume 91 fL (80-100); Platelet Count 375 K/mm3 (150-400); RDW Coefficient Variation 15.7 % (11.7-14.2); RDW Standard Deviation 51.6 fL (35.1-46.3); Red Blood Cell Count 2.41 M/mm3 (3.80-5.20); White Blood Cell Count 8.29 K/mm3 (4.00-11.30)
[2022-02-08 05:09] LABS: BASOPHILS PERCENT MAN 0 % (0-2); EOSINOPHILS PERCENT MAN 0 % (0-6); LYMPHOCYTES ABSOLUTE MAN 0.82 K/mm3 (0.84-5.20); LYMPHOCYTES PERCENT MAN 10 % (21-46); METAMYELOCYTE ABSOLUTE MAN 0.16 K/mm3 (0.00-0.00); METAMYELOCYTE PERCENT MAN 2 % (0-0); MONOCYTES ABSOLUTE MAN 0.08 K/mm3 (0.16-1.47); MONOCYTES PERCENT MAN 1 % (4-13); MYELOCYTE ABSOLUTE MAN 0.08 K/mm3 (0.00-0.00); MYELOCYTE PERCENT MAN 1 % (0-0); NEUTROPHILS ABSOLUTE MAN 7.12 K/mm3 (1.96-9.15); SEG NEUTROPHILS PERCENT MAN 86 % (41-73); TOTAL CELLS COUNTED 100
--- NOTE | 2022-02-08 07:21 | NUR ---
SHIFT SUMMARY: NEURO: ALERT AND ORIENTED. FOLLOWS COMMANDS, NOTS APPROPRIATELY. NO DEFICITS NOTED CARDIAC: WNL, SR ON MONITOR AFEBRILE NO CP OR SOB RESP: TRACH IN PLACE, VENT SETTINGS UNCHANGED GI: RECTAL TUBE IN PLACE, MINIMAL LEAKAGE OVERNIGHT. 300 OP. : FRIEDMAN IN PLACE DRAINING TO GRAVITY. SKIN: INTACT BUT FFRAGILE
[2022-02-08 12:32] LABS: Albumin, Blood 1.5 g/dL (3.4-5.0); Anion Gap 5 mmol/L (6-16); Blood Urea Nitrogen 11 mg/dL (8-24); Bun/Creatinine Ratio 17.9 (12.0-20.0); CO2, Blood 34 mmol/L (21-32); Chloride, Blood 105 mmol/L (98-108); Creatinine, Blood 0.61 mg/dL (0.40-1.00); Glomerular Filtration Rate 94 (60-); Glucose, Blood 107 mg/dL (70-99); Phosphorus, Blood 2.7 mg/dL (2.5-4.9); Potassium, Blood 3.7 mmol/L (3.5-5.5); Sodium, Blood 144 mmol/L (136-145)
--- NOTE | 2022-02-08 18:39 | NUR ---
Shift Summary. Pt continues on ventilator, able to tolerate PS 10/5 for about an hour this afternoon. Back on AC/VC, 22/340/8/55%. Pt appeared very tired today, one unit of PRBC's transfused this am for low H&H, see lab values. Patient painful throughout the day, prn pain meds given, see EMAR. PG in ROMEO. Doherty catheter in place. Rectal tube in place. No acute events this shift. See assessment for further details. VS stable, will report off to oncoming RN.
--- NOTE | 2022-02-08 23:39 | NUR ---
ASSUMED CARE ASSUMED CARE AT 1900. PT ALERT, FOLLOWING DIRECTIONS, AND NODDING HEAD YES/NO TO QUESTIONS AT TIMES. OTHER TIMES PT WILL STARE AT STAFF WHEN QUESTION IS ASKED. PT GRIMACES W/ CARE, WHEN ASKED IF SHES IN PAIN, PT SHAKES HEAD NO. PT ON VENT VIA TRACH. SITE C/D/I. VENT SETTINGS 22/340/8/55%. RR 22-28. SP02 GREATER THAN 90%. TF OFF PER DAYSHIFT RN. FRIEDMAN IN PLACE AND DRAINING TO GRAVITY. RECTAL TUBE IN PLACE. SEE SHIFT ASSESSMENT FOR FULL ASSESSMENT. PG IN ROMEO PAINFUL W/ FLUSH, AND REMOVED. PIV X 2 AND PG X 2 ATTEMPTED AND UNSUCCESSFUL. PG TO JOE PATENT.
[2022-02-09 03:39] LABS: BASOPHILS ABSOLUTE AUTO 0.03 K/mm3 (0.00-0.23); BASOPHILS PERCENT AUTO 0 % (0-2); EOSINOPHILS ABSOLUTE AUTO 0.04 K/mm3 (0.00-0.68); EOSINOPHILS PERCENT AUTO 0 % (0-6); Hematocrit 24.7 % (33.0-51.0); Hemoglobin 8.1 g/dL (11.5-16.0); IMMATURE GRAN ABSOLUTE AUTO 0.51 K/mm3 (0.00-0.10); IMMATURE GRAN PERCENT AUTO 5 % (0-1); LYMPHOCYTES ABSOLUTE AUTO 0.54 K/mm3 (0.84-5.20); LYMPHOCYTES PERCENT AUTO 5 % (21-46); MONOCYTES ABSOLUTE AUTO 0.53 K/mm3 (0.16-1.47); MONOCYTES PERCENT AUTO 5 % (4-13); Mean Corpuscular HGB 29.8 pg (26.0-34.0); Mean Corpuscular HGB Conc 32.8 g/dL (31.5-36.5); Mean Corpuscular Volume 91 fL (80-100); Mean Platelet Volume 9.9 fL (9.1-12.4); NEUTROPHILS ABSOLUTE AUTO 8.66 K/mm3 (1.96-9.15); NEUTROPHILS PERCENT AUTO 84 % (41-73); Platelet Count 377 K/mm3 (150-400); RDW Coefficient Variation 15.8 % (11.7-14.2); RDW Standard Deviation 52.4 fL (35.1-46.3); Red Blood Cell Count 2.72 M/mm3 (3.80-5.20); White Blood Cell Count 10.31 K/mm3 (4.00-11.30)
[2022-02-09 03:59] LABS: Albumin, Blood 1.4 g/dL (3.4-5.0); Albumin/Globulin Ratio 0.4 (0.8-1.8); Bilirubin, Total 0.5 mg/dL (0.1-1.0); Bun/Creatinine Ratio 17.9 (12.0-20.0); Creatinine, Blood 0.61 mg/dL (0.40-1.00); Globulin, Blood 3.6 g/dL (2.2-4.0); Magnesium, Blood 2.2 mg/dL (1.6-2.4); Phosphorus, Blood 2.3 mg/dL (2.5-4.9); Potassium, Blood 3.8 mmol/L (3.5-5.5)
--- NOTE | 2022-02-09 06:12 | NUR ---
SHIFT SUMMARY PT REMAINS ON VENT VIA TRACH. AC/VC 22/340/8/60%. RR 22-34. TF REMAINED OFF D/T FIRM AND DISTENDED ABD. PT ABD SLIGHTLY LESS FIRM AT 0400 ASSESSMENT. POTASSIUM AND PHOS REPLACMENT STARTED AND STOPPED SHORTLY AFTER D/T PT REPORTING PAIN WITH INFUSION AND TENDERNESS ABOVE PG SITE. PICTURE TAKEN OF RED CIRCULAR SORES UNDER BILATERAL BREASTS. NGT IN PLACE. FRIEDMAN PATENT AND DRAINING TO GRAVITY. RECTAL TUBE IN PLACE WITH 125ML OUTPUT.
--- NOTE | 2022-02-09 08:48 | NUR ---
PT RESTING IN BED. NEW TRACH TO VENT WITH SUTURES IN PLACE. PT IS ABLE TO MOUTH WORDS AND NODS HEAD YES OR NO APPROPRIATELY. PT HAS DISCOMFORT AT TRACH SITE WITH ANY MOVEMENT AND SAYS SHE HAS SOME DISCOMFORT IN ABD BUT DENIES PAIN. SPOKE WITH DR. MEDINA ABOUT TUBE FEEDS BEING ON HOLD. HE SAYS TO RESTART THEM AT LOW RATE AND INCREASE IF TOLERATING. PT HAS HYPERACTIVE BT'S AND IS HAVING STOOL FROM RECTAL TUBE. NO SIGN OF DISTRESS, USES CALL LIGHT APPROPRIATELY.
--- NOTE | 2022-02-09 17:18 | NUR ---
SUMMARY PT RESTING IN BED. A/O TO PERSON, PLACE, AND EVENT. ABLE TO USE CALL LIGHT APPROPRIATLEY. PT HAS DISCOMFORT AT TRACH SITE. NEW TRACH WITH SUTURES. ON VENT, NO CHANGES TO SETTINGS. DR. OBREGON AND DR. MEDINA IN CONTACT TODAY ABOUT PEG TUBE. TENTITIVE PLAN IS FOR PEG ON SATURDAY. TUBE FEED VIA NG RESTARTED TODAY AT 10ML/HR. ADVANCE IF PT TOLERATES PER BELT BUILDER. PT HAD AN EPISODE OF NAUSEA THIS AM. PT GOT PICC LINE TODAY DUE DIFFICULT IV START AND NEED FOR RESIDENTIAL ACCESS. PT HAS SORES TO LIPS, NEOSPORIN PLACED AND DAUGHTER HAS BEEN APPLYING CHAPSTICK NEEDED. NO SIGN OF DISTRESS, CALL LIGHT IN REACH.
--- NOTE | 2022-02-09 21:21 | NUR ---
ASSUMED CARE ASSUMED CARE AT 1900. PT ON VENT VIA TRACH. AC/VC 22/340/8/55%. SPO2 GREATER THAN 90%. LUNG SOUNDS COARSE T/O. WHEEZES ON RIGHT SIDE. TF AT 10ML/HR. ABD FIRM, DISTENDED, AND PAINFUL TO PALPITATION. HYPOACTIVE BT. PT C/O PAIN IN THROAT/NECK AND ANXIETY. MEDICATED PER EMAR. PICC TO JOE. SR 80-90'S. SBP 100'S. FRIEDMAN PATENT AND DRAINING TO GRAVITY. RECTAL TUBE IN PLACE. FAMILY AT BEDSIDE. CALL LIGHT REACH.
[2022-02-10 04:22] LABS: BASOPHILS ABSOLUTE AUTO 0.01 K/mm3 (0.00-0.23); BASOPHILS PERCENT AUTO 0 % (0-2); EOSINOPHILS ABSOLUTE AUTO 0.08 K/mm3 (0.00-0.68); EOSINOPHILS PERCENT AUTO 1 % (0-6); Hematocrit 23.4 % (33.0-51.0); Hemoglobin 7.4 g/dL (11.5-16.0); IMMATURE GRAN ABSOLUTE AUTO 0.38 K/mm3 (0.00-0.10); IMMATURE GRAN PERCENT AUTO 4 % (0-1); LYMPHOCYTES ABSOLUTE AUTO 0.48 K/mm3 (0.84-5.20); LYMPHOCYTES PERCENT AUTO 6 % (21-46); MONOCYTES ABSOLUTE AUTO 0.49 K/mm3 (0.16-1.47); MONOCYTES PERCENT AUTO 6 % (4-13); Mean Corpuscular HGB 28.9 pg (26.0-34.0); Mean Corpuscular HGB Conc 31.6 g/dL (31.5-36.5); Mean Corpuscular Volume 91 fL (80-100); Mean Platelet Volume 10.3 fL (9.1-12.4); NEUTROPHILS ABSOLUTE AUTO 7.26 K/mm3 (1.96-9.15); NEUTROPHILS PERCENT AUTO 84 % (41-73); Platelet Count 364 K/mm3 (150-400); RDW Coefficient Variation 16.1 % (11.7-14.2); RDW Standard Deviation 53.1 fL (35.1-46.3); Red Blood Cell Count 2.56 M/mm3 (3.80-5.20)
[2022-02-10 04:37] LABS: Albumin, Blood 1.4 g/dL (3.4-5.0); Anion Gap 5 mmol/L (6-16); Blood Urea Nitrogen 9 mg/dL (8-24); Bun/Creatinine Ratio 16.8 (12.0-20.0); CO2, Blood 32 mmol/L (21-32); Calcium, Blood 7.7 mg/dL (8.5-10.1); Chloride, Blood 102 mmol/L (98-108); Creatinine, Blood 0.54 mg/dL (0.40-1.00); Glomerular Filtration Rate 97 (60-); Glucose, Blood 114 mg/dL (70-99); Magnesium, Blood 1.9 mg/dL (1.6-2.4); Phosphorus, Blood 3.3 mg/dL (2.5-4.9); Potassium, Blood 3.7 mmol/L (3.5-5.5); Sodium, Blood 139 mmol/L (136-145)
--- NOTE | 2022-02-10 06:25 | NUR ---
SHIFT SUMMARY NO ACUTE EVENTS OVERNIGHT. VENT SETTINGS UNCHANGED. PT C/O PAIN AND MEDICATED THREE TIMES. ATIVAN GIVEN AT BEGINING OF SHIFT WHEN PT C/O ANXIETY. TRACH CARE COMPLETED. REDNESS NOTED AT BOTTOM OF TRACH, AND SUTURES APPEAR TO BE PULLING. PT SLEPT IN-BETWEEN CARES AND TURNS. SORES ON LIPS AND ON TONGUE. ORAL CARE COMPLETED Q4 AND CHAPSTICK APPLIED Q2-3. TF 20ML/HR. RECTAL TUBE REMOVED APPROX 0030. NO BM, BUT PASSING GAS. FRIEDMAN PATENT AND DRAINING TO GRAVITY. DR AUGUSTIN NOTIFIED OF MORNING LABS. ORDERS RECEIVED.
--- NOTE | 2022-02-10 09:21 | NUR ---
CARE OF PT ASSUMED AT 0700. PT SLEEPING, AWAKENS TO VOICE, ABLE TO COMMUNICATE BY WRITING, NODDING. PT C/O TRACH SITE PAIN 08/18. PT FALLS ASLEEP QUICKLY AFTER QUESTIONS. PT REPOSITIONED. PT ON VENT 22/340/8/55%. PLAN: MEDICATE FOR PAIN NEEDED, POSSIBLE TRY SPONT, DANGLE IF POSSIBLE, OOB TO CHAIR IF POSSIBLE, TRACH CARE W INNER CANNULA CHANGE. HYPERACTIVE BT'S, TF AT 20, GOAL 40.
--- NOTE | 2022-02-10 10:52 | NUR ---
PT OOB TO CHAIR USING LIFT W RT AND 2 RN ASSIST. PT MEDICATED FOR PAIN. TUBE FEEDS INCREASED TO GOAL RATE OF 40.
--- NOTE | 2022-02-10 13:15 | NUR ---
PT PLACED ON SPONT 02/15 45%. RESP RATE 20 TO LOW 30'S. PT APPEARS COMFORTABLE, FAMILY AT BEDSIDE.
--- NOTE | 2022-02-10 15:27 | NUR ---
PT BACK TO BED USING LIFT W RT AND 2RN ASSIST. PT WORKED W PT. TRACH CARE COMPLETE. SMALL AMT OF CLEAR DRAINAGE. PT CONT TO BE INCONTINENT OF LIQUID STOOL. PICC DRSG CHANGED. COMPLETE BED BATH W CHG/BATH DONE, LINEN CHANGE.
--- NOTE | 2022-02-10 19:14 | NUR ---
PT PLACED BACK TO AC/VC SETTINGS AT 1630. PT SLEEPING, APPEARS RESTFUL, REPORT GIVEN TO ONCOMING RN.
--- NOTE | 2022-02-10 22:00 | NUR ---
ASSUMPTION OF CARE/ASSESSMENT: ASSUMED CARE OF PT AT 1900. PT VENTILATED VIA TRACH WITH SETTINGS AC/VC 22/340/8/65%. PT DROWSY BUT EASILY AROUSABLE. PT APPEARS WITHDRAWN AND ANXIOUS; GRIMACING WHEN NGT/TRACH MOVEMENT. PT COOPERATIVE WITH CARE. PT LUNG SOUDNS ARE COARSE IN THE RIGHT LOBE AND CLEAR IN THE LEFT LOBE WITH DIM BASES BILATERALLY. PT TACHYPNEIC WITH RR 24-40. PT REPOSITIONED TWICE DURING INITIAL ASSESSMENT D/T MULTPLE BOWEL MOVEMENTS PT BECAME ANXIOUS AND WROTE "UNABLE TO SLOW BREATHING". PT WAS VERY RESTLESS AT THIS TIME AND RR 40-50 WITH SPO2 DROPPING DOWN TO 85. PT RECIEVED 1 MG ATIVAN AND 10 MG ORAL HYDROCODONE TO HELP CALM DOWN PT. PT HAD C/O PAIN OVER TRACH AREA AND ABD. PT RESPONDED TO MEDS AND SETTLED AND RR RETURNED TO 24-35 AND SPO2 MAINTAINED 94<. PT HAS AN NGT IN PLACE THAT IS INFUSING PIVOT 1.5 AT GOAL RATE OF 40 MLS/HR. HYPOACTIVE BS PRESENT IN ALL QUADRANTS WITH ABD MILDLY DISTENDED WITH TENDERNESS IN RLQ. PT HAD FRIEDMAN IN PLACE AND DRAINING TO GRAVITY; BRANDON URINE. PT PPP X 4. PICC LINE JOE THAT IS FLUSHED AND ORANGE CAPS IN PLACE. WILL CONTINUE TO MONITOR.
[2022-02-11 05:27] LABS: BASOPHILS ABSOLUTE AUTO 0.02 K/mm3 (0.00-0.23); BASOPHILS PERCENT AUTO 0 % (0-2); EOSINOPHILS ABSOLUTE AUTO 0.07 K/mm3 (0.00-0.68); EOSINOPHILS PERCENT AUTO 1 % (0-6); Hematocrit 25.1 % (33.0-51.0); Hemoglobin 8.2 g/dL (11.5-16.0); IMMATURE GRAN ABSOLUTE AUTO 0.54 K/mm3 (0.00-0.10); IMMATURE GRAN PERCENT AUTO 4 % (0-1); LYMPHOCYTES ABSOLUTE AUTO 0.41 K/mm3 (0.84-5.20); LYMPHOCYTES PERCENT AUTO 3 % (21-46); MONOCYTES ABSOLUTE AUTO 0.58 K/mm3 (0.16-1.47); MONOCYTES PERCENT AUTO 5 % (4-13); Mean Corpuscular HGB 29.7 pg (26.0-34.0); Mean Corpuscular HGB Conc 32.7 g/dL (31.5-36.5); Mean Corpuscular Volume 91 fL (80-100); Mean Platelet Volume 10.2 fL (9.1-12.4); NEUTROPHILS ABSOLUTE AUTO 11.08 K/mm3 (1.96-9.15); NEUTROPHILS PERCENT AUTO 87 % (41-73); Platelet Count 391 K/mm3 (150-400); RDW Coefficient Variation 16.4 % (11.7-14.2); RDW Standard Deviation 54.5 fL (35.1-46.3); Red Blood Cell Count 2.76 M/mm3 (3.80-5.20)
[2022-02-11 06:01] LABS: Bun/Creatinine Ratio 24.2 (12.0-20.0); Calcium, Blood 8.6 mg/dL (8.5-10.1); Creatinine, Blood 0.58 mg/dL (0.40-1.00); Magnesium, Blood 1.8 mg/dL (1.6-2.4); Phosphorus, Blood 1.8 mg/dL (2.5-4.9); Potassium, Blood 4.3 mmol/L (3.5-5.5)
--- NOTE | 2022-02-11 06:18 | NUR ---
SHIFT SUMMARY: NO ACUTE CHANGES THIS SHIFT. PT HAD ANOTHER RESTLESS EPISODE AROUND 0430 AND COUGHING AND AGGITATION WITH VENT OCCURRED. PT MEDICATED WITH 1 MG ATIVAN AND 2 MG MORPHINE AND RESPONDED WELL. RR BACK DOWN TO 28-24 AND SPO2 96<. PT BACK TO SLEEP AT THIS TIME. PT SLEPT THROUGH MAJORITY OF NIGHT. TUBE FEED REPLACED WITH NEW TUBING THIS MORNING. WILL CONTINUE TO MONITOR UNTIL ONCOMING RN ARRIVES.
[2022-02-11 10:02] LABS: Source, Urine Foley catheter
[2022-02-11 10:05] LABS: Appearance, Urine Clear (Clear); Bilirubin, Urine Neg (Neg); Blood, Urine 2+ (Neg); Color, Urine Yellow (P-Yellow); Glucose Qualitative, Urine Neg (Neg); Ketones, Urine Neg (Neg); Leukocyte Esterase, Urine Neg (Neg); Nitrite, Urine Neg (Neg); Protein, Urine 2+ (Neg); Specific Gravity, Urine 1.015 (1.003-1.022); Urobilinogen, Urine 1+ (Normal)
[2022-02-11 10:15] LABS: Red Blood Cells, Urine 0-2 /hpf (0-2); Squamous Epithelial Cells Rare /hpf (Few); White Blood Cells, Urine 0-2 /hpf (0-5)
[2022-02-11 10:17] LABS: Bacteria Rare /hpf
--- NOTE | 2022-02-11 11:09 | NUR ---
CARE OF PT ASSUMED AT 0700. PT AWAKE, ANXIOUS, RESP 40'S ON ASSESSMENT. PT C/O PAIN TO BACK AND BODY "EVERYWHERE". LUNGS COARSE T/O WITH SCATTERED WHEEZES. RT AT BEDSIDE. DR MEDINA AT BEDSIDE SHORTLY AFTER 0700. STAT CHEST XRAY ORDERED AND COMPLETED. EKG COMPLETED. ATIVAN 1MG IV GIVEN PER DR MEDINA. DR HWANG AT BEDSIDE AROUND 0800. FULL UPDATE GIVEN. TROPONIN SENT, BLOOD CX TAKEN, UA AND SPUTUM SENT. PT IN PAIN DESPITE ORAL PAIN MED, MS 2MG GIVEN IV. RESP SLOWED TO MID 30'S AFTER ATIVAN. PT GIVEN FULL CHG BEDBATH. TRACH CARE COMPLETED. TUBE FEEDS AT GOAL W 15CC RESIDUAL. RECTAL TEMP PROBE PLACED, TEMP 102.0; TYLENOL GIVEN. TEMP NOW 99.7, BLANKETS OFF, FAN ON PT. FUNGAL LIKE RASH UNDER PT'S BREAST SHOWN TO , MEDICATED POWDER PLACED. ULCERS TO LIPS IMPROVED FROM YESTERDAY. PT'S DAUGHTER AT BEDSIDE AROUND 0900, ACETYLENE TORCH OPERATOR AND DR WHANG UPDATED DAUGHTER.
[2022-02-11 14:14] LABS: C DIFFICILE DNA NEGATIVE (Negative)
--- NOTE | 2022-02-11 17:58 | NUR ---
PT C/O ABD PAIN, UNABLE TO GIVE NUMBER. UNABLE TO STATE IF NAUSEATED. ABD VERY DISTENDED, FIRM, AND TENDER. NG PLACED TO SUCTION WITH LITTLE OUTPUT. BT'S HYPERACTIVE/TYMPANIC T/O. RESP 40. DR HWANG CALLED. STAT CT ORDERED. PREDCEDEX GTT ORDERED.
--- NOTE | 2022-02-11 18:56 | NUR ---
PT BACK FROM CT FOR CT OF CHEST/ABD/PELVIS. PT SEUN PROCEDURE WELL. PT VERY DROWSY, SLEPT THROUGH MOST OF SCAN. PRECEDEX NOT STARTED YET. NG LEFT CLAMPED.
--- NOTE | 2022-02-11 22:12 | NUR ---
ASSUMPTION OF CARE/ASSESSMENT: ASSUMED CARE OF PT AT 1900; REPORT RECIEVED FROM ERIC NASCIMENTO. PT IS VENTILATED VIA TRACH WITH SETTINGS AC/VC 22/360/8/65%. LUNG SOUNDS ARE COARSE BILAT WITH EXPIRATORY WHEEZES NOTED; RR 34-40 AND SPO2 90<. HR IN THE 100-110 AND SBP 120'S. NO C/O CHEST PAIN AT THIS TIME. PT IS VERY DROWSY BUT WAKES EASILY; PT APPEARS WITHDRAWN AND DOES NOT WANT TO PARTICIPATE IN QUESTIONS; PT WAS ABLE SHAKE HEAD NO WHEN ASKED ABOUT PAIN. PT HAS NGT PRESENT AND TUBE FEEDINGS RESUMED AT 40 MLS/HR POST ABD CT FINDINGS CLEARED FOR GI OBSTRUCTION. PT HAS HYPOACTIVE BS IN ALL QUADRANTS; ABD FIRM, NON-TENDER. PT HAS LOW GRADE FEVER AT 1007; FAN TURNED ON. FRIEDMAN IN PLACE AND DRAINING TO GRAVITY WITH URINE CLEAR/YELLOW. PT PPP X 4. PT DAUGHTER UPDATED OVER PHONE AT 2130 AND ALL QUESTIONS ANSWERED AT THIS TIME. PT IS NOW SLEEPING. WILL CONTINUE TO MONITOR.
--- NOTE | 2022-02-12 05:49 | NUR ---
SHIFT SUMMARY: PT REMAINS VENTILATED VIA TRACH WITH SETTINGS AC/PC: RR-22, INSPIRATORY PRESSURE-16, PEEP-10, AND FI02 80%; PT IS RESPONDING BETTER TO NEW VENT SETTINGS. RR 28-34 AND SP02 96<. PT WAS SUCTIONED A COUPLE TIMES THROUGHOUT THE NIGHT WITH SAMLL TO MODERATE AMOUNTS OF WHITE, THICK SECRETIONS. THE PT WAS WHEEZY THROUGHOUT THE NIGHT AND RECIEVED A FEW PRN BREATHING TREATMENTS. PT WAS TACHYPNEIC FOR THE MAJORITY OF THE FIRST HALF OF THE SHIFT AND HAD TROUBLE WITH VENT COMPLIANCE; RR WOULD JUMP TO 45-48 AND SPO2 WOULD DROP TO 85<. PT MEDICATED PER EMAR AND FI02 TITRATED THROUGHOUT THE NIGHT TO STABILIZE RESPIRATORY EFFORTS. PRECEDEX INITIATED IN THE 0000 HOUR TO KEEP PT CALM AND LOWER RESPIRATIONS; PT STARTED TO HAVE SOFT BP SO PRECEDEX GTT TITRATED TO SB. PT REMAINS CALM AND COOPERATING WITH VENT AT THIS TIME AND BP HAS IMPROVED. PT NEURO STATUS HAS CHANGED COMPARED TO LAST NIGHT; PT DOES NOT PARTICIPATE IN CONVERSATION/QUESTIONS ANYMORE AND PT RELUCTANT TO OPEN EYES WITH VERBAL STIMULI. WHEN THE PT DOES OPEN HER EYES IT IS BRIEF AND THE PT GOES BACK TO SLEEP QUICKLY. PT IS NOT ATTEMPTING TO PARTICIPATE IN TURNS ANYMORE. HR IN THE 80'S WITH SBP 90'S. WILL CONTINUE TO MONITOR UNTIL ONCOMING RN ARRIVES.
--- NOTE | 2022-02-12 11:14 | NUR ---
ASSUMED CARE OF PATIENT AT 0700, SHE WAS SLEEPING AT THE TIME. AWAKENED TO INTRODUCE SELF AND START CARE. PT WITH TACHYPNEA, PT NOT RESPONSIVE TO THERA- PEUTIC TALK. PT PUSHED ME AWAY WITH ORAL CARE AND FRIEDMAN CARE. PT RESTLESS. ENCOURAGEMENT GIVEN. FAMILY IN AROUND 1000, PT BECAME MORE RESTLESS AND ANXIOUS. PRECEDEX IS RESTARTED AT 0.4MCG/KG, BP STABLE, TYLENOL GIVEN FOR ELEVATED TEMPERATURE, MORPHINE GIVEN FOR PAIN AND DISCOMFORT. TUBE FEEDING IS ON HOLD SINCE 0900 FOR PROCEDURE THIS AFTERNOON. PT RESISTANT TO ALLOWING US REPOSITION OFTEN.
--- NOTE | 2022-02-12 12:39 | NUR ---
AFTER REPOSITIONING AND MEDICATING PATIENT WITH MORPHINE, PT HAS BEEN RESTING WITH GOOD VS. FAMILY ALLOWED HER TO REST. DAUGHTER REQUESTED THAT ORAL CARE NOT BE DONE AT NOON, OTHER THAN MOUTH MOISTURE.
--- NOTE | 2022-02-12 14:42 | NUR ---
DR. CALHOUN IS NOT ABLE TO DO THE PEG TUBE TODAY, FAMILY HAS BEEN NOTIFIED. PT WAS RESTARTED ON JEVITY 1.5 @ 40ML WITH THE ANTICIPATION OF PLACING THE PEG TUBE TOMORROW. PT WORKED WITH P/T TODAY. SHE IS POSITIONED BETTER AND HAS ALLOWED REPOSITIONING X2.
--- NOTE | 2022-02-12 18:42 | NUR ---
PT HAS BEEN NEUROLOGICALLY INTACT TODAY. PT'S BREATHING HAS BEEN TACHYPNEIC WITH RATES IN THE 40'S, SHE IS ON PRECEDEX @ 0.4MCG/KG/HR WHICH HAS HELPED HER TO REST TODAY. SHE HAS NS @ TKO INFUSING FOR HER ANTIBIOTICS. CARDIOVASCULAR SHE IS TACHY AT TIMES WITH STABLE BP, PULSES X4, SKIN WARM DRY. TEMP CLIMBING MEDICATED WITH TYLENOL VIA NGT PER ORDERS X 2 TODAY. NGT WITH JEVITY 1.5 @ 27 ML/HR. FRIEDMAN TO GRAVITY DRAINAGE WITH GOOD UO AFTER LASIX. VENOUS DOPPLAR STUDY OF LOWER EXTREMITIES COMPLETED WITH SOME PAIN TO PATIENT. DAUGHTERS IN THE ROOM WITH PATIENT. MEDICATED WITH ATIVAN 1MG X 2, AND WITH MORPHINE 2MG X 2 THIS SHIFT. TRACH INNER CANNULA CHANGED, PT'S HERPES OF THE MOUTH CONTINUES TO SLOUGH OFF SCABS. WILL CONTINUE TO MONITOR AND TREAT, REPORTING OFF TO NEXT SHIFT WHEN ABLE.
[2022-02-13 06:10] LABS: BASOPHILS ABSOLUTE AUTO 0.01 K/mm3 (0.00-0.23); BASOPHILS PERCENT AUTO 0 % (0-2); EOSINOPHILS PERCENT AUTO 0 % (0-6); Hematocrit 24.6 % (33.0-51.0); IMMATURE GRAN ABSOLUTE AUTO 0.33 K/mm3 (0.00-0.10); IMMATURE GRAN PERCENT AUTO 3 % (0-1); LYMPHOCYTES ABSOLUTE AUTO 0.17 K/mm3 (0.84-5.20); LYMPHOCYTES PERCENT AUTO 2 % (21-46); MONOCYTES ABSOLUTE AUTO 0.12 K/mm3 (0.16-1.47); MONOCYTES PERCENT AUTO 1 % (4-13); Mean Corpuscular HGB 28.9 pg (26.0-34.0); Mean Corpuscular HGB Conc 32.5 g/dL (31.5-36.5); Mean Corpuscular Volume 89 fL (80-100); Mean Platelet Volume 10.6 fL (9.1-12.4); NEUTROPHILS ABSOLUTE AUTO 9.12 K/mm3 (1.96-9.15); NEUTROPHILS PERCENT AUTO 94 % (41-73); Platelet Count 376 K/mm3 (150-400); RDW Coefficient Variation 16.2 % (11.7-14.2); RDW Standard Deviation 52.9 fL (35.1-46.3); Red Blood Cell Count 2.77 M/mm3 (3.80-5.20); White Blood Cell Count 9.75 K/mm3 (4.00-11.30)
[2022-02-13 06:30] LABS: Albumin, Blood 1.6 g/dL (3.4-5.0); Albumin/Globulin Ratio 0.4 (0.8-1.8); Bilirubin, Total 0.3 mg/dL (0.1-1.0); Bun/Creatinine Ratio 37.1 (12.0-20.0); Calcium, Blood 8.1 mg/dL (8.5-10.1); Creatinine, Blood 0.54 mg/dL (0.40-1.00); Globulin, Blood 3.7 g/dL (2.2-4.0); Potassium, Blood 3.9 mmol/L (3.5-5.5); Total Protein, Blood 5.3 g/dL (6.4-8.2)
--- NOTE | 2022-02-13 06:39 | NUR ---
END OF SHIFT SUMMARY NEURO: PT LETHARGIC AT START OF SHIFT. REDUCED PRECEDEX TO 0.3 MCG/KG/HR. PT BECAME MORE RESPONSIVE EVENING WENT ON WITH ANXIETY BEING CONTROLLED AT THIS RATE. ALERT TO VERBAL STUMULI, ORIENTED TO SELF AND PLACE. ANSWERS YES OR NO QUESTIONS BY NODDING HEAD YES OR SHAKING HEAD NO. GENERALIZED WEAKNESS BUT MOVES ALL FOUR EXTREMITIES AGAINST GRAVITY AND SENSATION NOTED IN ALL FOUR EXTREMITIES. RESPIRATORY: TRACH SZ 6 NON FENESTRATED. SUTURES REMOVED AND INNER CANNULA CHANGED 02/12. AC/PC SETTING. RR 22 TV 340 PEEP 10 FiO2 55%. RHONCHOROUS BREATH SOUNDS APPRECIATED BILATERALLY. INLINE SUCTION PULLING SMALL AMOUNTS OF THICK WHITE/YELLOW SECRETIONS. CARDIAC: LEVO GTT STARTED S/P DIURESIS TO MAINTAIN MAPS >65. CURRENTLY RUNNING AT 0.5 MCG/MIN. BPM 60s-80s. BP 100s/60s. CAP REFILL < 3 SECONDS. PT DENIED CHEST PAIN. GI/: MILD DISTENTION NOTED TO ABDOMEN. PT DENIED TENDERNESS WHEN PALPATING. NO BOWEL MOVEMENT OVERNIGHT. FRIEDMAN IN PLACE, SECURED AND PATENT. PUTTING OUT ADEQUATE AMOUNTS OF CLEAR YELLOW URINE. DIURESED WITH 40MG LASIX AT START OF SHIFT. MUSCULOSKELETAL: GENERALIZED WEAKNESS. LIMBS CANNOT OVERCOME RESISTANCE BUT MOVE AGAINST GRAVITY. 2 PERSON ASSIST WITH TURNS Q2 HRS. INTEGUMENTARY: MULTIPLE SORES ON LIPS. TREATING WITH WATER SOLUBLE LUBRICANT. RASH AND LESIONS UNDER BREASTS. COCCYX CLEAR, NO REDNESS NOTED. PSYCHOSOCIAL: ATIVAN GIVEN ONCE OVERNIGHT FOR ANXIETY.
--- NOTE | 2022-02-13 12:27 | NUR ---
02/13/22 1227 Robina Dent PT IN ICU 11 FOR PEG TUBE PLACEDMENT WITH DR. CALHOUN. DR. CAICEDO PROVIDING ANESTHESIA CARE. RT PRESENT. SEE ANESTHESIA RECORD.
--- NOTE | 2022-02-13 13:31 | NUR ---
REASSESSMENT PT CONTINUES ON THE VENTILATOR WITH PRECEDEX FOR SEDATION. SHE WAS RESTLESS THIS MORNING, PULLED OFF HER BP CUFF AND PULLED OUT HER NGT. PT WAS ACTIVELY RESISTING CARE, REFUSING TO OPEN HER MOUTH FOR HER ORAL CARE AND SQUEEZING HER EYES SHUT SO THIS NURSE COULDN'T CHECK HER PUPILS. PT APPEARING ANXIOUS TOO WITH RR GOING UP TO 60 WITH ANY ACTIVITY AND DESATURATING TO MID 80S. DISCUSSED WITH DR. HOGAN AND DECISION TO INCREASE PRECEDEX FOR PT'S OVERALL COMFORT. PT HAD HER PEG PLACED THIS AFTERNOON AND TOLERATED IT WELL. POST PLACEMENT WHEN PT WAS SEDATED STILL, GOOD ORAL CARE DONE AND BATH COMPLETED. PT'S LUZ HAS BEEN AT THE BEDSIDE FOR MOST OF THE DAY. UPDATED EXTENSIVELY BY DR. HOGAN.
--- NOTE | 2022-02-13 16:28 | NUR ---
SHIFT SUMMARY PT GOT HER PEG TODAY AND HAS APPEARED MORE RELAXED AND COMFORTABLE SINCE RECEIVING IT. PT ACTUALLY SMILED AT THIS NURSE, WAS TRYING TO MOUTH WORDS TO FAMILY AND WILLINGLY OPENED HER MOUTH FOR ORAL CARE. PT'S PRECEDEX WAS TURNED UP FOR PROCEDURE AND WAS TURNED BACK DOWN TO 0.5MCG/KG/HR. WILL SEE IF PT'S ANXIETY/MOOD DECREASES WITH DECREASE IN MEDS. LUNGS ARE CLEAR IN THE UPPERS, COARSE IN THE BASES. VENT SETTINGS UNCHANGED FROM THIS MORNING. SR, BP STABLE OFF OF EVLOPHED, EVEN THROUGHOUT PEG PLACEMENT WITH PROPOFOL ADMINISTRATION. TUBE FEED REMAINS OFF AND MEDS HELD DR. CALHOUN SAID TO WAIT TO USE PEG UNTIL TOMORROW MORNING. PT'S LIPS SWABBED FOR VIRAL CULTURE AND SENT TO LAB. LOTS OF MOISTURIZER PLACED ON LIPS THROUGHOUT THE DAY. NO SORES SEEN IN ORAL MUCOSA. SORES UNDER PT'S BREAST CLEANED, NYSTATIN APPLIED AND PILLOW CASES PLACED UNDER BREASTS. DR. ISAACS SAW PT AND DISCUSSED RECOMMENDATIONS WITH PT'S REGARDING SEROQUEL. PT'S UNCOMFORTABLE WITH DR. ISAACS'S SUGGESTIONS BECAUSE THEY WERE HOPING TO COMPLETELY STOP SEROQUEL TO PREVENT ANY HYPOTONIA FROM PROGRESSING TO THE STOMACH AND WANTS TO DISCUSS IT WITH DR. HOGAN FIRST. DR. HOGAN AWARE. THIS NURSE ALSO DISCUSSED IT EXTENSIVELY WITH AND LUZ REGARDING THE RISKS OF CONTINUING SEROQUEL VERSUS POOR ANXIETY CONTROL LIMITING PT'S PROGRESS ON THE VENTILATOR. EMOTIONAL SUPPORT PROVIDED.
[2022-02-14 05:47] LABS: BASOPHILS ABSOLUTE AUTO 0.01 K/mm3 (0.00-0.23); BASOPHILS PERCENT AUTO 0 % (0-2); EOSINOPHILS PERCENT AUTO 0 % (0-6); Hematocrit 23.8 % (33.0-51.0); Hemoglobin 7.8 g/dL (11.5-16.0); IMMATURE GRAN ABSOLUTE AUTO 0.25 K/mm3 (0.00-0.10); IMMATURE GRAN PERCENT AUTO 2 % (0-1); LYMPHOCYTES PERCENT AUTO 2 % (21-46); MONOCYTES ABSOLUTE AUTO 0.76 K/mm3 (0.16-1.47); MONOCYTES PERCENT AUTO 7 % (4-13); Mean Corpuscular HGB 29.1 pg (26.0-34.0); Mean Corpuscular HGB Conc 32.8 g/dL (31.5-36.5); Mean Corpuscular Volume 89 fL (80-100); Mean Platelet Volume 10.7 fL (9.1-12.4); NEUTROPHILS PERCENT AUTO 90 % (41-73); Platelet Count 474 K/mm3 (150-400); RDW Coefficient Variation 16.8 % (11.7-14.2); RDW Standard Deviation 54.5 fL (35.1-46.3); Red Blood Cell Count 2.68 M/mm3 (3.80-5.20); White Blood Cell Count 11.62 K/mm3 (4.00-11.30)
[2022-02-14 06:03] LABS: Albumin, Blood 1.8 g/dL (3.4-5.0); Albumin/Globulin Ratio 0.5 (0.8-1.8); Bilirubin, Total 0.3 mg/dL (0.1-1.0); Bun/Creatinine Ratio 45.9 (12.0-20.0); Calcium, Blood 8.5 mg/dL (8.5-10.1); Creatinine, Blood 0.55 mg/dL (0.40-1.00); Globulin, Blood 3.7 g/dL (2.2-4.0); Magnesium, Blood 2.3 mg/dL (1.6-2.4); Phosphorus, Blood 1.7 mg/dL (2.5-4.9); Potassium, Blood 3.1 mmol/L (3.5-5.5); Total Protein, Blood 5.5 g/dL (6.4-8.2)
--- NOTE | 2022-02-14 06:23 | NUR ---
END OF SHIFT SUMMARY DRIPS: PRECEDEX 0.5 MCG/KG/HR AND NS TKO LINES: RUE PICC. WNL. SLUGGISH FLUSH BUT CONTINUES TO DRAW BACK. NEURO: PT A&OX3, VERBAL STIMULI AWAKENS WHEN ASLEEP, INTERMITTENT CONFUSION. PT ANSWERS YES OR NO QUESTIONS BY NODDING HEAD YES OR SHAKING HEAD NO. GENERALIZED WEAKNESS BUT MOVES ALL FOUR EXTREMITIES AGAINST GRAVITY AND SENSATION NOTED IN ALL FOUR EXTREMITIES. RESPIRATORY: TRACH SZ 6 NON FENESTRATED. SUTURES REMOVED AND INNER CANNULA CHANGED 02/12. AC/PC SETTING. RR 16 INSPIRATORY PRESSURE 20 PEEP 10 FiO2 60%. INTERMITTENT RHONCHI AND CRACKLES APPRECIATED BILATERALLY. INLINE SUCTION PULLING SMALL AMOUNTS OF THICK WHITE SECRETIONS. CARDIAC: PT DENIES CHEST PAIN. CAP REFILL < 3 SECONDS. NO EDEMA NOTED. NSR. BPM 60s-80s. BLOOD PRESSURE AVERAGE 110s-50s WITH MAPS >65. GI/: MILD DISTENTION NOTED TO ABDOMEN. PT CONFIRMS TENDERNESS WHEN PALPATING AROUND PEG SITE. PEG SITE WNL. NO EXUDATE OR REDNESS NOTED. NO BOWEL MOVEMENT OVERNIGHT. FRIEDMAN IN PLACE, SECURED AND PATENT. PT AVERAGING 40 ML/HR CLEAR YELLOW URINE. MUSCULOSKELETAL: GENERALIZED WEAKNESS. LIMBS CANNOT OVERCOME RESISTANCE BUT MOVE AGAINST GRAVITY. BEGINNING TO ASSIST WITH TURNS BY GRABBING RAIL. INTEGUMENTARY: MULTIPLE SORES ON LIPS. TREATING WITH WATER SOLUBLE LUBRICANT. RASH AND LESIONS UNDER BREASTS TREATING WITH NYSTATIN POWDER. COCCYX CLEAR, NO REDNESS NOTED. PSYCHOSOCIAL: 1 MG ATIVAN X2 OVERNIGHT FOR ANXIETY.
[2022-02-14 10:41] LABS: Base Excess Venous 6.8 mmol/L; Bicarbonate Venous 29.9 mmol/L (24.0-30.0); PCO2 Venous 51.4 mmHg (38-42)
--- NOTE | 2022-02-14 13:24 | NUR ---
0800 ASSUMED CARE THIS AM PATIENT WAS SLEEPING IN BED WITH PC ON VENT TO TRACH HER OXYGENATION WAS 95%. SHE WOKE RESTLESS AND POPPED OFF THE TRACH. SHE BECAME ANXIOUS AND DESATURATED. SHE WAS SUCTIONED WITH THICK WHITE SECRETIONS OUT AND PUT ON 100% TO INCREASE HER O2. SHE DID RECOVERY TO 97%. SHE OTHERWISE WAS A LITTLE RESTLESS. SHE HAS A LOOSE STOOL THIS AM, GOT A CHLORHEXIDINE BATH AND PERCARE TO FRIEDMAN CATHETER MULTIPLE TIMES THIS AM DUE TO THE STOOLING. HER BOWEL MEDS WERE HELD THIS AM. SHE HAS BEEN COMPLAINING OF ABD TENDERNESS AND DISTENSION. SHE RECEIVED AN ABD US AND IT SHOWED AIR IN HER BOWELS. DR CALHOUN WAS CONSULTED TO SEE THE RESULTS. HE IS OK WITH US USING HER PEG AND GIVING TUBE FEEDING. WILL START AT TRICKLE THIS AFTERNOON. SHE WAS ABLE TO GET HER AM MEDS WITHOUT DIFFICULTY. PATIENT VS HAVE OTHERWISE BEEN STABLE WITH THE PRECEDEX GOING AT 0.5. SHE HAS MILD ANXIETY BUT HAS BEEN ABLE TO BE TALKED THROUGH IT. SHE IS DOING HER OWN ORAL CARE WITH STAFF DOING THE SET UP FOR HER. THIS GIVES HER MORE ATONAMY.
--- NOTE | 2022-02-14 18:47 | NUR ---
END OF SHIFT NOTE PATIENT HAD A GOOD DAY TODAY. SHE HAS BEEN DOING MUCH OF HER CARE POSSIBLE TODAY. SHE HAS BRUSHED HER OWN TEETH ON HER OWN EACH 4 HRS IF NOT SOONER AND SHE HAS AIDED IN MOVING HER SIDE TO SIDE IN BED. SHE IS LIFTING HER ARMS AND LEGS MORE WHEN WE REPOSITION THE PILLOWS WELL. SHE WAS ABLE TO HAVE HER TUBE FEEDING RESTARTED TODAY HOWEVER IT IS AT TRICKLE FEEDS OF 10CC/HR FOR 8 HRS THEN INCREASE TO 20 CC NEXT 8 HOURS AND INCREASE SUCH TILL SHE REACHES HER GOAL OF 40CC AN HR. SHE IS ALSO GETTING HER WATER FLUSHES OF 30 CC AN HR EVERY 4 HRS WELL. SHE WAS SHOWN TO HAVE LOTS OF AIR IN HER ABDOMEN TODAY. THIS HAS CAUSED HER TO HAVE LOTS OF FLATULENTS AND SMEARY STOOLS THROUGOUT THE DAY. HER CHANTALE AREA IS STARTING TO BE A BIT RED AND POWER WAS APPLIED THIS EVENING. SHE HAS BEEN GETTING FREQ. FRIEDMAN CARE WELL DUE TO THE STOOLS THAT HAVE OCCURED. HER LIPS THAT HAVE SCABS ON THEM ARE LOOKING 90% BETTER THIS EVENING MOISTENING THEM ALL DAY. SHE HAS BEEN ON SPONTANOUS SINCE SHE WAS IN THE CHAIR AT 1400 TODAY. HER OXYGENATION IS GOING WELL. DR HOGAN DID CHANGED HER PEEP DOWN TO 8 TODAY AND 60% FIO2 THIS AM WHEN SHE WAS ON AC/PC. SHE HAS HAD LITTLE SECRETIONS OUT OF HER TRACH TODAY. THE SKIN AROUND HER TRACH LOOKS GOOD WITHOUT BLEEDING OR REDNESS WITH THE JELL PAD IN PLACE. FAMILY WAS BY HER SIDE THROUGHOUT THE DAY. NO NEW CONCERNS AT THIS TIME.
--- NOTE | 2022-02-15 06:31 | NUR ---
SHIFT SUMMARY: NEURO: PATIENT ALERT MOST OF SHIFT. ANSWERS ORIENTATION QUESTIONS APPROPRIATELY AND FOLLOWS COMMANDS. PATIENT INTERMITTENTLY CONFUSED THROUGHOUT NIGHT FOR BRIEF MOMENTS. AT 0200 PATIENT BECAME UPSET AND SAID "YOU HAVE TO LET MY PARENTS IN. THEY ARE OUTSIDE." WAS EMBARRASSED WHEN REDIRECTED. WEBB, FOLLOWS ALL COMMANDS. COMPLIANT WITH CARE OVERNIGHT. CARDIAC: SR 60'S-90'S. BP WNL. AFEBRILE. NO C/O CHEST PAIN RESP: TRACH. INNER CANNULA REPLACED THIS SHIFT. PATIENT NOTED TO BE MESSING WITH TRACH SITE. EDUCATED PATIENT ON RISK FOR INFECTION AND ACCIDENTAL REMOVAL OF TRACH. PATIENT ACKNOWLEDGED EDUCATION. PATIENT ABLE TO SPEAK SMALL WORDS FOR FIRST TIME. TACHYPNIC ON VENT. AC OVERNIGHT. GI: PATIENT HAD ONE BOWEL MOVEMENT THIS SHIFT. WAS ABLE TO COMMUNICATE NEED FOR BEDPAN. LARGE AND LIQUID. TF ADVANCED TO 20ML/HR. WHEN ATTEMPTED 30/HR PATIENT STATED THAT SHE "FEELS TOO FULL". REDUCED TF RATE TO 20/HR. JEVITY 1.5 : FRIEDMAN IN PLACE DRAINING TO GRAVITY. LOW UOP OVERNIGHT, 400. FRIEDMAN FLUSHED. SKIN: UNCHANGED FROM PREVIOUS SHIFT. DRY AND FRAGILE. LOTION APPLIED TO PERINEAL AREA OTHER: PRECEDEX GTT 0.5. UNABLE TO WEAN PATIENT BECAME AGITATED.
[2022-02-15 06:32] LABS: BASOPHILS ABSOLUTE AUTO 0.01 K/mm3 (0.00-0.23); BASOPHILS PERCENT AUTO 0 % (0-2); EOSINOPHILS PERCENT AUTO 0 % (0-6); Hematocrit 24.3 % (33.0-51.0); IMMATURE GRAN ABSOLUTE AUTO 0.13 K/mm3 (0.00-0.10); IMMATURE GRAN PERCENT AUTO 2 % (0-1); LYMPHOCYTES PERCENT AUTO 2 % (21-46); MONOCYTES ABSOLUTE AUTO 0.55 K/mm3 (0.16-1.47); MONOCYTES PERCENT AUTO 6 % (4-13); Mean Corpuscular HGB 29.2 pg (26.0-34.0); Mean Corpuscular HGB Conc 32.9 g/dL (31.5-36.5); Mean Corpuscular Volume 89 fL (80-100); Mean Platelet Volume 10.6 fL (9.1-12.4); NEUTROPHILS ABSOLUTE AUTO 7.76 K/mm3 (1.96-9.15); NEUTROPHILS PERCENT AUTO 90 % (41-73); Platelet Count 461 K/mm3 (150-400); RDW Coefficient Variation 16.7 % (11.7-14.2); RDW Standard Deviation 54.2 fL (35.1-46.3); Red Blood Cell Count 2.74 M/mm3 (3.80-5.20); White Blood Cell Count 8.65 K/mm3 (4.00-11.30)
[2022-02-15 06:34] LABS: Albumin, Blood 1.9 g/dL (3.4-5.0); Albumin/Globulin Ratio 0.6 (0.8-1.8); Bilirubin, Total 0.3 mg/dL (0.1-1.0); Bun/Creatinine Ratio 46.7 (12.0-20.0); Calcium, Blood 8.5 mg/dL (8.5-10.1); Creatinine, Blood 0.6 mg/dL (0.40-1.00); Globulin, Blood 3.2 g/dL (2.2-4.0); Potassium, Blood 3.2 mmol/L (3.5-5.5); Total Protein, Blood 5.1 g/dL (6.4-8.2)
--- NOTE | 2022-02-15 07:06 | NUR ---
Assumed care. Report received from nightshift RN. Pt resting in bed. Ventilated via trach, vent settings: AC/PC //8/50%. VS stable, no acute needs at time of report. Will continue to monitor.
--- NOTE | 2022-02-15 18:10 | NUR ---
Shift summary. Pt on PS 15, 60%. Alert and oriented, vs stable throughout shift. Pt up to chair for several hours today. Able to stand and pivot with assistance. Respiratory rate climbed into 40-50s and pt desaturated into the 80s during exertion, able to easily recover sats by increasing Fi02 and continue with movement/OT/etc.. TF changed by dietary to basno, Environmental 1.5. Pt c/o slight nausea today with some localized pain around PEG tube insertion site. No acute events this shift. See assessments for further details. Will report off to oncoming RN.
[2022-02-16 04:57] LABS: BASOPHILS PERCENT AUTO 0 % (0-2); EOSINOPHILS PERCENT AUTO 0 % (0-6); Hematocrit 25.3 % (33.0-51.0); Hemoglobin 8.2 g/dL (11.5-16.0); IMMATURE GRAN ABSOLUTE AUTO 0.31 K/mm3 (0.00-0.10); IMMATURE GRAN PERCENT AUTO 2 % (0-1); LYMPHOCYTES ABSOLUTE AUTO 0.16 K/mm3 (0.84-5.20); LYMPHOCYTES PERCENT AUTO 1 % (21-46); MONOCYTES PERCENT AUTO 6 % (4-13); Mean Corpuscular HGB 29.2 pg (26.0-34.0); Mean Corpuscular HGB Conc 32.4 g/dL (31.5-36.5); Mean Corpuscular Volume 90 fL (80-100); Mean Platelet Volume 10.3 fL (9.1-12.4); NEUTROPHILS ABSOLUTE AUTO 11.59 K/mm3 (1.96-9.15); NEUTROPHILS PERCENT AUTO 90 % (41-73); Platelet Count 496 K/mm3 (150-400); RDW Coefficient Variation 16.8 % (11.7-14.2); RDW Standard Deviation 55.1 fL (35.1-46.3); Red Blood Cell Count 2.81 M/mm3 (3.80-5.20); White Blood Cell Count 12.86 K/mm3 (4.00-11.30)
--- NOTE | 2022-02-16 05:10 | NUR ---
SHIFT SUMMARY: NEURO: PATIENT FORGETFUL WHEN WOKEN. BRIEF EPISODES OF CONFUSION WHERE PATIENT INSISTED TO BE TAKEN HOME. OTHERWISE ORIENTED TO SELF AND DATE. DID NOT SLEEP MUCH THIS SHIFT. CARDIAC: SR, 60'S-90'S. BP WNL, NO C/O CP RESP: TRACH IN PLACE, WEANING DOWN VENT SETTINGS PER RT. LARGE AMOUNT OF IN-LINE SECRETIONS. PATIENT COUGHING VERY FREQUENTLY. PRN PAIN MEDICINE APPEARED TO HELP WITH TRACH IRRITATION AND ABDOMINAL TENDERNESS. : OLIGURIA, 400 UOP THIS SHIFT GI: SMALL SMEAR BM THIS SHIFT. TF REACHED GOAL 40ML/HOUR WITH PATIENT TOLERATING WELL. ABDOMEN LESS FIRM THAN BEFORE. CHANGED ATTENDS X2 DUE TO PATIENT REQUEST. SKIN: INTANCT, FRAGILE OTHER: PATIENT TURNED Q2 HOURS. COMPLIANT WITH TURNING.
[2022-02-16 05:15] LABS: Albumin, Blood 1.9 g/dL (3.4-5.0); Anion Gap 5 mmol/L (6-16); Blood Urea Nitrogen 25 mg/dL (8-24); Bun/Creatinine Ratio 49.5 (12.0-20.0); CO2, Blood 34 mmol/L (21-32); Calcium, Blood 8.3 mg/dL (8.5-10.1); Chloride, Blood 103 mmol/L (98-108); Creatinine, Blood 0.51 mg/dL (0.40-1.00); Glomerular Filtration Rate 99 (60-); Glucose, Blood 131 mg/dL (70-99); Potassium, Blood 4.1 mmol/L (3.5-5.5); Sodium, Blood 142 mmol/L (136-145)
--- NOTE | 2022-02-16 08:15 | NUR ---
Assumed care at 0700, report received from nightshift RN. Pt sleeping in bed, ventilated via trach. Vent settings: SPONT 12/13, 40%. PICC in JOE, wnl. Doherty catheter in place. VS stable, continue to monitor.
--- NOTE | 2022-02-16 18:20 | NUR ---
Shift summary. Pt rested in bed throughout morning. Up to chair before noon, worked with OT. Pt appeared stronger standing today with lower Fi02 demands during exertion. back to bed at approximately 1430. Pt vent settings Spontaneous, 10/,40% all day with temporary increases during periods of exertion. Family at bedside most of the shift. No acute events. VS stable, see assessments for further details. Will report off to oncoming RN.
[2022-02-17 05:32] LABS: BASOPHILS ABSOLUTE AUTO 0.04 K/mm3 (0.00-0.23); BASOPHILS PERCENT AUTO 0 % (0-2); EOSINOPHILS PERCENT AUTO 0 % (0-6); Hematocrit 24.8 % (33.0-51.0); IMMATURE GRAN ABSOLUTE AUTO 0.67 K/mm3 (0.00-0.10); IMMATURE GRAN PERCENT AUTO 5 % (0-1); LYMPHOCYTES ABSOLUTE AUTO 0.11 K/mm3 (0.84-5.20); LYMPHOCYTES PERCENT AUTO 1 % (21-46); MONOCYTES PERCENT AUTO 5 % (4-13); Mean Corpuscular HGB 29.1 pg (26.0-34.0); Mean Corpuscular HGB Conc 32.3 g/dL (31.5-36.5); Mean Corpuscular Volume 90 fL (80-100); NEUTROPHILS ABSOLUTE AUTO 13.34 K/mm3 (1.96-9.15); NEUTROPHILS PERCENT AUTO 90 % (41-73); Platelet Count 452 K/mm3 (150-400); RDW Coefficient Variation 17.5 % (11.7-14.2); RDW Standard Deviation 57.1 fL (35.1-46.3); Red Blood Cell Count 2.75 M/mm3 (3.80-5.20); White Blood Cell Count 14.86 K/mm3 (4.00-11.30)
[2022-02-17 05:49] LABS: Albumin, Blood 1.9 g/dL (3.4-5.0); Anion Gap 4 mmol/L (6-16); Blood Urea Nitrogen 24 mg/dL (8-24); Bun/Creatinine Ratio 45.3 (12.0-20.0); CO2, Blood 34 mmol/L (21-32); Chloride, Blood 104 mmol/L (98-108); Creatinine, Blood 0.53 mg/dL (0.40-1.00); Glomerular Filtration Rate 98 (60-); Glucose, Blood 132 mg/dL (70-99); Phosphorus, Blood 2.1 mg/dL (2.5-4.9); Potassium, Blood 4.4 mmol/L (3.5-5.5); Sodium, Blood 142 mmol/L (136-145)
--- NOTE | 2022-02-17 06:18 | NUR ---
SHIFT SUMMARY: NEURO: PATIENT SLEPT BETWEEN CARE. OCCASIONALLY ANXIOUS THROUGH SHIFT, BUT DISCUSSED THE SIDE EFFECTS OF ATIVAN FOR HER AND PATIENT DECIDED AGAINST IT. WAS ABLE TO CALM DOWN WITH ASSISTANCE. ORIENTED. MUCH BETTER NIGHT THAN PREVIOUS NIGHT. [id number] COMMANDS AND COMPLIANT WITH CARE. CARDIAC: SR 90'S. BP WNL. NO C/O CHEST PAIN RESP: COMPLAINT WITH VENT. PC MODE UNCHANGED FROM PREVIOUS. WAS USING SPONTANEOUS MODE UNTIL 0300. COUGHING AND DESATS BUT RECOVERS QUICKLY. GI: ONE SMEAR BM THIS SHIFT. MARIA GUADALUPE FARMS 1.5 TF 40/HR AT GOAL. PATIENT TOLERATING WELL WITH SOME ABDOMINAL DISTENSION. : LOW UOP. FRIEDMAN IN PLACE AND PATENT DRAINING TO GRAVITY. OTHER: PATIENT LOW UOP MULTIPLE DAYS IN A ROW, NOTIFIED, ORDER RECEIVED FOR FLUIDS. SEE EMAR FOR MORE INFO.
--- NOTE | 2022-02-17 09:00 | NUR ---
Assumed care at 1900. Pt sleeping in bed at time of report. Ventilated via trach, vent settings: AC/PC 16,10/5,45%. PICC in JOE, wnl. Doherty catheter in place. VS stable, continue to monitor.
--- NOTE | 2022-02-17 18:51 | NUR ---
Shift summary. Pt continues on ventilator, able to tolerate PS for most of the shift. Pt spent up to bedside commode twice, several hours spent in recliner today. Family at bedside all shift. Pt A&O, vs stable, no acute events. See shift assessment for further details. Will report off to nightshift RN.
[2022-02-18 05:37] LABS: BASOPHILS ABSOLUTE AUTO 0.02 K/mm3 (0.00-0.23); BASOPHILS PERCENT AUTO 0 % (0-2); EOSINOPHILS PERCENT AUTO 0 % (0-6); Hematocrit 24.5 % (33.0-51.0); Hemoglobin 7.9 g/dL (11.5-16.0); IMMATURE GRAN ABSOLUTE AUTO 0.61 K/mm3 (0.00-0.10); IMMATURE GRAN PERCENT AUTO 4 % (0-1); LYMPHOCYTES PERCENT AUTO 1 % (21-46); MONOCYTES ABSOLUTE AUTO 0.31 K/mm3 (0.16-1.47); MONOCYTES PERCENT AUTO 2 % (4-13); Mean Corpuscular HGB 29.3 pg (26.0-34.0); Mean Corpuscular HGB Conc 32.2 g/dL (31.5-36.5); Mean Corpuscular Volume 91 fL (80-100); Mean Platelet Volume 10.3 fL (9.1-12.4); NEUTROPHILS ABSOLUTE AUTO 13.36 K/mm3 (1.96-9.15); NEUTROPHILS PERCENT AUTO 93 % (41-73); Platelet Count 363 K/mm3 (150-400); RDW Coefficient Variation 17.6 % (11.7-14.2)
[2022-02-18 05:54] LABS: Albumin, Blood 1.7 g/dL (3.4-5.0); Anion Gap 3 mmol/L (6-16); Blood Urea Nitrogen 22 mg/dL (8-24); CO2, Blood 31 mmol/L (21-32); Calcium, Blood 7.7 mg/dL (8.5-10.1); Chloride, Blood 104 mmol/L (98-108); Creatinine, Blood 0.52 mg/dL (0.40-1.00); Glomerular Filtration Rate 98 (60-); Glucose, Blood 145 mg/dL (70-99); Phosphorus, Blood 1.9 mg/dL (2.5-4.9); Potassium, Blood 4.7 mmol/L (3.5-5.5); Sodium, Blood 138 mmol/L (136-145)
--- NOTE | 2022-02-18 06:17 | NUR ---
END OF SHIFT REPORT NEURO: PT A&OX4. ANSWERS QUESTIONS WITH NODDING AND SHAKING HEAD. SHORT SENTENCES CAN GET OUT BREATHY WORDS DUE TO TRACH. COMMUNICATES WELL WITH DRY ERASE BOARD. PT DENIES NUMBNESS/TINGLING, HEADACHE OR VISION CHANGES. FULL SENSATION IN ALL FOUR EXTREMITIES. LIMBS ABLE TO OVERCOME RESISTANCE. CARDIAC: NSR. HR 60s-80s. AVERAGE BLOOD PRESSURE 120s/70s MAPS >65. PT DENIES CHEST PAIN. CAP REFILL < 3 SECONDS. RESPIRATORY: RR 20s. PT TACHYPNEIC WITH EXERTION. SATTING >95%. VENT SETTINGS: SPONTANEOUS/PC 10/5 50%. INTERMITTENT RHONCHI APPRECIATED IN BILATERAL UPPERS COARSE BREATH SOUNDS IN BILATERAL LOWERS. INLINE SUCTION NECESSARY. SMALL AMOUNTS OF CLEAR/WHITE THICK SECRETIONS. GI/: INTERMITTENT INCONTINENCE OF BOWEL. 2 LOOSE BROWN BOWEL MOVEMENTS OVERNIGHT. FRIEDMAN NOTED. SECURED AND DRAINING TO GRAVITY, NO DEPENDENT LOOPS. PUTTING OUT ADEQUATE AMOUNTS OF CLEAR BRANDON URINE. INTEGUMENTARY: SKIN DRY AND FRAGILE. RASH AND OPEN LESIONS UNDER BILATERAL BREASTS. APPLYING NYSTATIN POWDER. OPEN SORES ON LIPS. APPLYING WATER BASED LUBRICANT. COCCYX CLEAR AND NO SKIN ISSUES NOTED TO BACKSIDE. MUSCULOSKELETAL: GENERALIZED WEAKNESS. STAND AND PIVOT TO BEDSIDE COMMODE WITH GAIT BELT. 1-2 ASSIST. PSYCHOSOCIAL: PLEASANT AND MAKES NEEDS KNOWN. SLEPT WELL THROUGH OUT THE NIGHT.
--- NOTE | 2022-02-18 07:35 | NUR ---
Assumed care. Report received from nightshift RN. Pt resting in bed, no overnight changes per offgoing RN. Pt alert, able to nod yes/no to questions. Vital signs stable, no acute needs at this time. Pt has scheduled tracheostomy for 0900 this am. Continue to monitor.
--- NOTE | 2022-02-18 18:17 | NUR ---
Shift summary. Pt rested in bed for most of shift. Up to chair for about 2 hours this morning. Alert and oriented, tolerating trach well. On Spontaneous all shift, no ventilator changes. Trach inner canula changed by RT. Clear exudate noted around trach site. Pt appears stronger today, ambulated up to commode and chair with little difficulty. PICC in JOE, Doherty in place draining to gravity. VS stable, see assessments for further details. Will continue to monitor and report off to oncoming RN.
--- NOTE | 2022-02-18 19:30 | NUR ---
ASSUME CARE AT 1900 RECEIVED REPORT FROM XOCHITL NASCIMENTO. PT LYING COMFORTABLE IN BED. NO DRIPS. CONTINUOUS TUBE FEED AT 40 ML/HR WITH 30ML FLUSH Q4. FRIEDMAN SECURED AND DRAINING TO GRAVITY. PICC SITE WNL. TRACH CARE PERFORMED DAYSHIFT 02/18 WITH INNER CANNULA CHANGE.
--- NOTE | 2022-02-18 21:00 | NUR ---
PLACED PT BACK ONTO AC/VC SETTINGS DUE TO DROPPING OXYGEN SAT. SETTINGS: RATE 16 PI 8 PEEP 5 FIO2 65%. NOTIFIED.
--- NOTE | 2022-02-18 23:27 | NUR ---
CHEST XR TAKEN AT 2300 FOR PTS INCREASED O2 DEMAND TO RULE OUT CONCERN FOR PNEUMOTHORAX. HOSPITALIST MARY TORRES REVIEWED AND CONSULTED DR. MONTGOMERY, WHO SAID IT WAS NEGATIVE. 2 ER PHYSICIANS REVIEWED AND ALSO CONFIRMED WITH NURSE NEGATIVE FOR PNEUMO.
[2022-02-19 04:43] LABS: BASOPHILS ABSOLUTE AUTO 0.04 K/mm3 (0.00-0.23); BASOPHILS PERCENT AUTO 0 % (0-2); EOSINOPHILS ABSOLUTE AUTO 0.02 K/mm3 (0.00-0.68); EOSINOPHILS PERCENT AUTO 0 % (0-6); Hematocrit 25.3 % (33.0-51.0); Hemoglobin 8.2 g/dL (11.5-16.0); IMMATURE GRAN ABSOLUTE AUTO 1.12 K/mm3 (0.00-0.10); IMMATURE GRAN PERCENT AUTO 6 % (0-1); LYMPHOCYTES ABSOLUTE AUTO 0.17 K/mm3 (0.84-5.20); LYMPHOCYTES PERCENT AUTO 1 % (21-46); MONOCYTES PERCENT AUTO 2 % (4-13); Mean Corpuscular HGB 29.2 pg (26.0-34.0); Mean Corpuscular HGB Conc 32.4 g/dL (31.5-36.5); Mean Corpuscular Volume 90 fL (80-100); Mean Platelet Volume 10.3 fL (9.1-12.4); NEUTROPHILS PERCENT AUTO 91 % (41-73); Platelet Count 322 K/mm3 (150-400); RDW Coefficient Variation 17.9 % (11.7-14.2); RDW Standard Deviation 59.1 fL (35.1-46.3); Red Blood Cell Count 2.81 M/mm3 (3.80-5.20); White Blood Cell Count 20.15 K/mm3 (4.00-11.30)
[2022-02-19 05:11] LABS: Albumin, Blood 1.7 g/dL (3.4-5.0); Albumin/Globulin Ratio 0.5 (0.8-1.8); Bilirubin, Total 0.5 mg/dL (0.1-1.0); Bun/Creatinine Ratio 37.2 (12.0-20.0); Calcium, Blood 7.9 mg/dL (8.5-10.1); Creatinine, Blood 0.62 mg/dL (0.40-1.00); Globulin, Blood 3.3 g/dL (2.2-4.0); Phosphorus, Blood 1.5 mg/dL (2.5-4.9)
--- NOTE | 2022-02-19 05:27 | NUR ---
END OF SHIFT SUMMARY NEURO: A&OX4. PT DENIED NUMBNESS/TINGLING, HEADACHE OR VISION CHANGES. FULL SENSATION IN ALL FOUR EXTREMITIES. LIMB STRENGTH CAPABLE OF OVERCOMING RESISTANCE. PUPILS 3MM PERRLA. GENERALIZED WEAKNESS. RESPIRATORY: RHONCHI APPRECIATED IN BILATERAL UPPER LOBES AND COARSE BILATERAL LOWERS. INCREASED 02 DEMAND AT 2100. TOOK OFF SPONTANEOUS SETTINGS AND PUT BACK ON AC/PC RR 16 INSPIRATORY PRESSURE 8 PEEP 5 FIO2 45%. CHEST XRAY NEGATIVE FOR PNEUMO. PT CONTINUED TO SAT HIGH 80s. 20 MG LASIX GIVEN AND MINOR IMPROVEMENT SEEN. FIO2 AJDUSTED TO 65% TO MAINTAIN O2 SAT >92%. AT AROUND 0130 PT INFORMED NURSE OF INCREASED SOB AND TIGHTNESS IN CHEST WHEN BREATHING, ALL VITALS AT THIS TIME REMAIN STABLED BESIDES 02 SATURATION WHICH BEGAN DROPPING AGAIN. PRN PAIN MEDICATIONS AND ATIVAN GIVEN. CT PE RULE OUT ORDERED, RESULTS NEGATIVE. INLINE SUCTION SECRETIONS HAVE REMAINED MINIMAL AND CLEAR OVERNIGHT. BREATH SOUNDS HAVE BECOME MORE RHONCHOROUS AND CRACKLES APPRECIATED. SECRETIONS AROUND TRACH SITE ARE COPIOUS THICK AND YELLOW. CARDIAC: NSR. HR 90s-100s. BP START OF SHIFT AVERAGED 130s/70s. END OF SHIFT AVERAGING 90s/60s MAP > 65 S/P ATIVAN AND PAIN MEDICATIONS. CAP REFILL < 3 SECONDS. BLE EDEMA +1. HIGHEST TEMPERATURE OVERNIGHT 101.9 F. GI/: HYPERACTIVE BOWEL SOUNDS APPRECIATED. MODERATELY DISTENDED ABDOMEN AND PT CONFIRMED TENDERNESS AROUND PEG SITE WITH PALPATION. 1 BOWEL MOVEMENT OVERNIGHT. FRIEDMAN IN PLACE AND SECURED, DRAINING TO GRAVITY AND NO DEPENDENT LOOPS. ADEQUATE OUTPUT OF CLEAR YELLOW URINE OVERNIGHT. MUSCULOSKELETAL: GENERALIZED WEAKNESS. STAND AND PIVOT TO COMMODE. CHAIRFAST. INTEGUMENTARY: SCABS TO LIPS. RASH AND OPEN LESIONS UNDER BILATERAL BREASTS. SKIN DRY AND FRAGILE.
--- NOTE | 2022-02-19 07:30 | NUR ---
ASSUMED CARE: PT TRACHED BUT NOT SEDATED. RT AT BEDSIDE. STATES PT IS ON PRESSURE CONTROL AT PEEP OF 8 AND 65% FIO2. NSR ON TELE. PEG TUBE IN PLACE WITH TF AT GOAL. FRIEDMAN CATH DRAINING CLEAR YELLOW URINE. NO ACUTE NEEDS AT THIS TIME.
--- NOTE | 2022-02-19 10:57 | NUR ---
DR MIRANDA AND DR DEMARCO SPOKE WITH PT AND HER SISTER. DR INSTRUCTS THIS RN TO GET SPUTUM SAMPLE IF ABLE AND TO LET HER KNOW IF ANOTHER FEVER OCCURS AND BLOOD CULTURES MAY BE COLLECTED THEN. PT'S SISTER REPORTS THAT PT IS HAVING YELLOW THICK SPUTUM FROM MOUTH AND WONDERS IF PT HAS SINUS INFECTION. PT DENIES SINUS PRESSURE OR FEELING OF NASAL CONGESTION. INFORMED DR MIRANDA OF THIS. ORDERS FOR NASAL SPRAY. PHYSICAL THERAPY AT BEDSIDE WITH PT AT THIS TIME.
--- NOTE | 2022-02-19 11:28 | NUR ---
SISTER REPORTS THAT PT IS SLEEPING AT THIS TIME. WILL DEFER ORAL CARE AND NASAL SPRAY FOR A LITTLE WHILE SO THAT PT CAN REST. RELAYED TO SISTER DR MIRANDA'S ORDERS AND INSTRUCTIONS. DENIES FURTHER NEEDS OR CONCERNS AT THIS TIME.
--- NOTE | 2022-02-19 18:13 | NUR ---
SHIFT SUMMARY: PT RESTING IN BED. VENT SETTINGS AT PC 16/8 AND 60% FIO2. MEDICATED X2 FOR PAIN AND X1 FOR NAUSEA. WORKED WITH PHYSICAL THERAPY. UP TO BSC X2 THIS SHIFT WITH 1 ASSIST. NO FEVERS OR DESATURATION THIS SHIFT. NO ACUTE NEEDS AT THIS TIME. FAMILY AT BEDSIDE.
[2022-02-20 05:59] LABS: Hematocrit 22.9 % (33.0-51.0); Hemoglobin 7.6 g/dL (11.5-16.0); Mean Corpuscular HGB 29.5 pg (26.0-34.0); Mean Corpuscular HGB Conc 33.2 g/dL (31.5-36.5); Mean Corpuscular Volume 89 fL (80-100); Mean Platelet Volume 10.4 fL (9.1-12.4); Platelet Count 293 K/mm3 (150-400); RDW Coefficient Variation 18.3 % (11.7-14.2); RDW Standard Deviation 58.6 fL (35.1-46.3); Red Blood Cell Count 2.58 M/mm3 (3.80-5.20); White Blood Cell Count 14.41 K/mm3 (4.00-11.30)
[2022-02-20 06:12] LABS: Albumin, Blood 1.6 g/dL (3.4-5.0); Albumin/Globulin Ratio 0.5 (0.8-1.8); Bilirubin, Total 0.4 mg/dL (0.1-1.0); Bun/Creatinine Ratio 36.4 (12.0-20.0); Calcium, Blood 7.9 mg/dL (8.5-10.1); Creatinine, Blood 0.55 mg/dL (0.40-1.00); Globulin, Blood 3.3 g/dL (2.2-4.0); Magnesium, Blood 2.2 mg/dL (1.6-2.4); Phosphorus, Blood 1.8 mg/dL (2.5-4.9); Potassium, Blood 4.1 mmol/L (3.5-5.5); Total Protein, Blood 4.9 g/dL (6.4-8.2)
--- NOTE | 2022-02-20 06:33 | NUR ---
SHIFT SUMMARY: NEURO: PATIENT SLEPT BETWEEN CARE. ORIENTED THROUGHOUT SHIFT. SOME WEAKNESS BUT WEBB AND FOLLOWS COMMANDS. CARDIAC: MAP >65, FEVER 102.2 OVERNIGHT. MD NOTIFIED AND PRN MEDICINE GIVEN. SEE EMAR FOR MORE INFORMATION. HR SR/ST. RESP: VENTILATOR SETTINGS REMAIN UNCHANGED FROM PREVIOUS SHIFT. PATIENT COUGHING UP LARGE AMOUNTS OF SPUTUM. LUNGS COARSE GI: NO BM THIS SHIFT. MARIA GUADALUPE [employer] 1.5 RUNNING AT 40ML/HR GOAL. 30ML Q4 WATER FLUSHES THROUGH PEG. PATIENT COMPLAINED OF ONE EPISODE OF NAUSEA AFTER PEDIATRICIAN. PRN MEDICINE GIVEN SEE EMAR FOR MORE INFO. : UOP ADEQUATE. 700 OVERNIGHT. FRIEDMAN PATENT AND DRAINING TO GRAVITY. SKIN: TURNED PATIENT Q2 HOURS. PATIENT COMPLIANT WITH CARE. OTHER: DUE TO FEVER OVERNIGHT, BLOOD CULTURES DRAWN PERIPHERALLY AND FROM PICC LINE.
[2022-02-20 06:40] LABS: BASOPHILS PERCENT MAN 0 % (0-2); EOSINOPHILS PERCENT MAN 0 % (0-6); LYMPHOCYTES ABSOLUTE MAN 0.14 K/mm3 (0.84-5.20); LYMPHOCYTES PERCENT MAN 1 % (21-46); MONOCYTES PERCENT MAN 0 % (4-13); MYELOCYTE ABSOLUTE MAN 0.28 K/mm3 (0.00-0.00); MYELOCYTE PERCENT MAN 2 % (0-0); NEUTROPHILS ABSOLUTE MAN 13.97 K/mm3 (1.96-9.15); SEG NEUTROPHILS PERCENT MAN 97 % (41-73); TOTAL CELLS COUNTED 100
[2022-02-20 11:12] LABS: Source, Urine Foley catheter
[2022-02-20 11:15] LABS: Appearance, Urine Clear (Clear); Bilirubin, Urine Neg (Neg); Blood, Urine 5+ (Neg); Color, Urine Yellow (P-Yellow); Glucose Qualitative, Urine 3+ (Neg); Ketones, Urine Neg (Neg); Leukocyte Esterase, Urine Neg (Neg); Nitrite, Urine Neg (Neg); Protein, Urine 3+ (Neg); Urobilinogen, Urine 1+ (Normal)
[2022-02-20 12:03] LABS: Amorphous Mod (0-Heavy); Bacteria Many /hpf; Squamous Epithelial Cells Mod /hpf (Few)
--- NOTE | 2022-02-20 13:49 | NUR ---
0800 AM ASSESSMENT PATIENT IS RESTING IN ROOM HOWEVER EASY TO AWAKEN WITH VERBAL STIMULI. SHE IS ON VENT/TRACH PRESSURE CONTROL AT 60% AT THIS TIME PEEP 8. RR 21. PATIENT IS AFEBRILE. SHE HAS PICC LINE WITH TKO MED GOING AND FRIEDMAN IN PLACE WITH YELLOW URINE OUT. SHE IS MOVING ALL EXTREMETIES ON HER OWN WELL. 0900 SISTER IN ROOM AND MEDS BEING GIVEN TO G TUBE. TUBE FEEDING GOING AT 40ML/HR WITH FREE WATER FLUSHES Q4 HR 30ML EACH TIME. SHE HAS INTERMITTENT NAUSEA. NO PAIN AT 0900 THIS AM. 1000: MORENA RITTER RN PLACED A NEW FRIEDMAN AFTER DC'ING THE OLD ONE AND GOT A NEW UA SAMPLE SENT FROM NEW FRIEDMAN PER DR ORDERS. 1030: OT WORKED WITH PATIENT AND GOT HER TO DANGLE AT BEDSIDE. SHE BECAME NAUSEAS AFTERWARD AND COMPLAINED OF TRACH PAIN. 1200: PATIENT GOT MEDICATION FOR PAIN AND NAUSEA. SHE WAS CHLORHEXIDINE BATHED AND NEW LINEN PLACED ON HER AND BED. SHE WAS REPOSITONED TO RIGHT SIDE PER HER REQUEST. SHE HAS BEEN DOING HER OWN ORAL CARE ALL MORNING. TRACH GAUZE REPLACED DUE TO SATURATION OF CREAMY SECRETIONS ON IT. RT DID SOME SUCTIONING WITH LITTLE OUT. MEDS GIVEN ALSO AT NOON. SISTER STEPPED AWAY FOR A MOMENT THIS NOON HOUR. PATIENT VERY APPRECIATIVE OF CARE GIVEN TODAY AND SMILING FREQUENTLY.
[2022-02-20 17:10] LABS: ASPERGILLUS FLAVUS Negative (Neg:<1:1); ASPERGILLUS FUMIGATUS Negative (Neg:<1:1); ASPERGILLUS NIGER Negative (Neg:<1:1)
[2022-02-21 04:01] LABS: Hematocrit 20.7 % (33.0-51.0); Hemoglobin 6.9 g/dL (11.5-16.0); Mean Corpuscular HGB 29.5 pg (26.0-34.0); Mean Corpuscular HGB Conc 33.3 g/dL (31.5-36.5); Mean Corpuscular Volume 89 fL (80-100); Mean Platelet Volume 10.3 fL (9.1-12.4); Platelet Count 284 K/mm3 (150-400); RDW Coefficient Variation 18.3 % (11.7-14.2); RDW Standard Deviation 57.7 fL (35.1-46.3); Red Blood Cell Count 2.34 M/mm3 (3.80-5.20); White Blood Cell Count 13.16 K/mm3 (4.00-11.30)
[2022-02-21 04:24] LABS: BAND PERCENT MAN 1 % (0-8); BASOPHILS PERCENT MAN 0 % (0-2); EOSINOPHILS ABSOLUTE MAN 0.26 K/mm3 (0.00-0.68); EOSINOPHILS PERCENT MAN 2 % (0-6); LYMPHOCYTES ABSOLUTE MAN 0.13 K/mm3 (0.84-5.20); LYMPHOCYTES PERCENT MAN 1 % (21-46); METAMYELOCYTE ABSOLUTE MAN 0.13 K/mm3 (0.00-0.00); METAMYELOCYTE PERCENT MAN 1 % (0-0); MONOCYTES ABSOLUTE MAN 0.39 K/mm3 (0.16-1.47); MONOCYTES PERCENT MAN 3 % (4-13); MYELOCYTE ABSOLUTE MAN 0.13 K/mm3 (0.00-0.00); MYELOCYTE PERCENT MAN 1 % (0-0); SEG NEUTROPHILS PERCENT MAN 91 % (41-73); TOTAL CELLS COUNTED 100
[2022-02-21 04:27] LABS: Magnesium, Blood 1.8 mg/dL (1.6-2.4)
[2022-02-21 04:30] LABS: Albumin, Blood 1.3 g/dL (3.4-5.0); Anion Gap 9 mmol/L (6-16); Blood Urea Nitrogen 13 mg/dL (8-24); Bun/Creatinine Ratio 32.3 (12.0-20.0); CO2, Blood 30 mmol/L (21-32); Calcium, Blood 6.8 mg/dL (8.5-10.1); Chloride, Blood 108 mmol/L (98-108); Glomerular Filtration Rate 104 (60-); Glucose, Blood 87 mg/dL (70-99); Phosphorus, Blood 1.8 mg/dL (2.5-4.9); Potassium, Blood 3.2 mmol/L (3.5-5.5)
[2022-02-21 05:08] LABS: Sodium, Blood 147 mmol/L (136-145)
--- NOTE | 2022-02-21 05:40 | NUR ---
CALL OUT TO MD FOR ABNORMAL LABS, MD UNABLE TO TAKE CALL AT THIS TIME.
--- NOTE | 2022-02-21 05:59 | NUR ---
SHIFT SUMMARY: NEURO: PATIENT SLEPT BETWEEN CARE. ORIENTED THROUGHOUT SHIFT. SOME WEAKNESS BUT WEBB AND FOLLOWS COMMANDS. CARDIAC: MAP >65, FEVER 101.2 OVERNIGHT.PRN MEDICINE GIVEN. SEE EMAR FOR MORE INFORMATION. HR SR/ST. RESP: VENTILATOR SETTINGS REMAIN UNCHANGED FROM PREVIOUS SHIFT. PATIENT COUGHING UP LARGE AMOUNTS OF SPUTUM. LUNGS COARSE GI: NO BM THIS SHIFT. [employer] 1.5 ORDERED TID BOLUS FEEDS. PATIENT COMPLAINED OF ONE EPISODE OF NAUSEA AFTER CUSTODIAN MANAGER. : UOP ADEQUATE. 1400 OVERNIGHT. FRIEDMAN PATENT AND DRAINING TO GRAVITY. SKIN: TURNED PATIENT Q2 HOURS. PATIENT COMPLIANT WITH CARE. OTHER: UPDATED SISTER ON PLAN OF CARE
--- NOTE | 2022-02-21 07:15 | NUR ---
Assumed care of pt at 0700. Report received from PILY Kumar. Pt alert. Answers questions, follows commands, verbalizes needs. Pleasant and cooperative with care. SpO2 90% or greater with vent settings ACPC: rate 16, PI 10, PEEP 5, FiO2 50%. #6 shiley trach, cuffed, nonfenestrated.
--- NOTE | 2022-02-21 10:00 | NUR ---
Pt's sister in room, update provided by Dr Tinsley during bedside rounds.
--- NOTE | 2022-02-21 12:00 | NUR ---
Pt anxiety increasing. Receptive to verbal redirection/therapeutic communication and pain management, pt escalating at this time. New orders given for precedex by Dr Tinsley.
--- NOTE | 2022-02-21 14:00 | NUR ---
Pt's family in room opted to step out of room to allow patient to relax in hopes that decreasing stimulation will help with pt's anxiety. Noted that Dr Colvin, ICU resident discontinued precedex. Precedex not started as pt soon feel asleep after departure of family.
[2022-02-21 14:09] LABS: Albumin, Blood 2.2 g/dL (3.4-5.0); Anion Gap 5 mmol/L (6-16); Blood Urea Nitrogen 15 mg/dL (8-24); Bun/Creatinine Ratio 27.9 (12.0-20.0); CO2, Blood 32 mmol/L (21-32); Chloride, Blood 99 mmol/L (98-108); Creatinine, Blood 0.54 mg/dL (0.40-1.00); Glomerular Filtration Rate 97 (60-); Glucose, Blood 188 mg/dL (70-99); Potassium, Blood 4.8 mmol/L (3.5-5.5)
[2022-02-21 14:10] LABS: Sodium, Blood 136 mmol/L (136-145)
[2022-02-21 15:16] LABS: BASOPHILS ABSOLUTE AUTO 0.04 K/mm3 (0.00-0.23); BASOPHILS PERCENT AUTO 0 % (0-2); EOSINOPHILS PERCENT AUTO 0 % (0-6); Hematocrit 28.1 % (33.0-51.0); Hemoglobin 9.3 g/dL (11.5-16.0); IMMATURE GRAN ABSOLUTE AUTO 0.84 K/mm3 (0.00-0.10); IMMATURE GRAN PERCENT AUTO 5 % (0-1); LYMPHOCYTES ABSOLUTE AUTO 0.14 K/mm3 (0.84-5.20); LYMPHOCYTES PERCENT AUTO 1 % (21-46); MONOCYTES ABSOLUTE AUTO 0.49 K/mm3 (0.16-1.47); MONOCYTES PERCENT AUTO 3 % (4-13); Mean Corpuscular HGB 29.2 pg (26.0-34.0); Mean Corpuscular HGB Conc 33.1 g/dL (31.5-36.5); Mean Corpuscular Volume 88 fL (80-100); Mean Platelet Volume 10.2 fL (9.1-12.4); NEUTROPHILS ABSOLUTE AUTO 16.47 K/mm3 (1.96-9.15); NEUTROPHILS PERCENT AUTO 92 % (41-73); Platelet Count 343 K/mm3 (150-400); RDW Coefficient Variation 18.4 % (11.7-14.2); RDW Standard Deviation 58.6 fL (35.1-46.3); Red Blood Cell Count 3.19 M/mm3 (3.80-5.20); White Blood Cell Count 17.98 K/mm3 (4.00-11.30)
--- NOTE | 2022-02-21 16:00 | NUR ---
Pt awoke and became very anxious. SpO2 dropped to high 50s. Dr Tinsley and Dr Colvin in room to see patient. Precedex started. Ativan given to patient to help her calm down.
--- NOTE | 2022-02-21 19:19 | NUR ---
SUMMARY Neuro: A&O x 4. Answers questions, follows commands, communicates needs. Pleasant and cooperative with care. Precedex 0.3 mcg/kg/hr. Musc: Pt able to help with ADLs. Resp: Lungs coarse in upper lobes and diminished otherwise. #6 shiley trach, cuffed, nonfenestrated at bedside. Vent settings PC 16/ 10/5/ 70%. RR 42. Tidal volumes 325-375 mL. Stringy beltran sputum suctioned form trach. Cardiac: ST per monitor, rate 107. BP stable. GI: Tolerating bolus feeds well. : Good urine output. Skin: Unchanged from initial assessment. Family met with Dr Cabrera several times today for updates.
[2022-02-22 05:42] LABS: BASOPHILS ABSOLUTE AUTO 0.02 K/mm3 (0.00-0.23); BASOPHILS PERCENT AUTO 0 % (0-2); EOSINOPHILS PERCENT AUTO 0 % (0-6); Hematocrit 21.2 % (33.0-51.0); Hemoglobin 7.1 g/dL (11.5-16.0); IMMATURE GRAN ABSOLUTE AUTO 0.46 K/mm3 (0.00-0.10); IMMATURE GRAN PERCENT AUTO 5 % (0-1); LYMPHOCYTES ABSOLUTE AUTO 0.07 K/mm3 (0.84-5.20); LYMPHOCYTES PERCENT AUTO 1 % (21-46); MONOCYTES ABSOLUTE AUTO 0.27 K/mm3 (0.16-1.47); MONOCYTES PERCENT AUTO 3 % (4-13); Mean Corpuscular HGB 29.6 pg (26.0-34.0); Mean Corpuscular HGB Conc 33.5 g/dL (31.5-36.5); Mean Corpuscular Volume 88 fL (80-100); Mean Platelet Volume 10.8 fL (9.1-12.4); NEUTROPHILS ABSOLUTE AUTO 8.81 K/mm3 (1.96-9.15); NEUTROPHILS PERCENT AUTO 92 % (41-73); Platelet Count 229 K/mm3 (150-400); RDW Coefficient Variation 18.2 % (11.7-14.2); RDW Standard Deviation 56.7 fL (35.1-46.3); White Blood Cell Count 9.63 K/mm3 (4.00-11.30)
[2022-02-22 06:05] LABS: Magnesium, Blood 1.5 mg/dL (1.6-2.4)
[2022-02-22 06:17] LABS: Albumin, Blood 1.4 g/dL (3.4-5.0); Anion Gap 13 mmol/L (6-16); Blood Urea Nitrogen 14 mg/dL (8-24); Bun/Creatinine Ratio 37.8 (12.0-20.0); CO2, Blood 26 mmol/L (21-32); Calcium, Blood 6.3 mg/dL (8.5-10.1); Chloride, Blood 111 mmol/L (98-108); Creatinine, Blood 0.37 mg/dL (0.40-1.00); Glomerular Filtration Rate 106 (60-); Glucose, Blood 127 mg/dL (70-99); Potassium, Blood 3.5 mmol/L (3.5-5.5)
[2022-02-22 06:18] LABS: Sodium, Blood 150 mmol/L (136-145)
--- NOTE | 2022-02-22 06:20 | NUR ---
SHIFT SUMMARY: NEURO: PATIENT SLEPT BETWEEN CARE. AT BEGINNING OF SHIFT EXTREMELY ANXIOUS AND TACHYPNIC ON VENT. GOT ATIVAN AT BEGINNING OF SHIFT TO HELP WITH WOB AND ANXIETY. PATIENT LETHARGIC THROUGHOUT SHIFT. WAS ABLE TO FOLLOW COMMANDS BUT VERY WEAK. CARDIAC: MAP >65, FEVER 101.7 OVERNIGHT.PRN MEDICINE GIVEN. SEE EMAR FOR MORE INFORMATION. HR SR/ST. RESP: PRESSURE CONTROL 16/ PEEP [address] MEDINA, O2 INITIALLY 100% THEN ABLE TO TITRATE DOWN TO 65 WHEN MORE STABLE. PATIENT TACHYPNIC BREATHING UP TO 50/ MINUTE, MD NOTIFIED AND ORDERS RECEIVED FOR ATIVAN. RT NOTIFIED OF PATIENT DESAT, INCREASED PRECEDEX GTT TO HELP WITH AGITATION. COUGHING UP SMALL AMOUNTS OF BLOODY SPUTUM. LUNGS COARSE GI: NO BM THIS SHIFT. [employer] 1.5 ORDERED TID BOLUS FEEDS. : UOP ADEQUATE. 1000 OVERNIGHT. FRIEDMAN PATENT AND DRAINING TO GRAVITY. SKIN: TURNED PATIENT Q2 HOURS. PATIENT COMPLIANT WITH CARE. OTHER: FAMILY HAD LENGTHY DISCUSSION WITH DR. MEDINA ABOUT PLAN OF CARE. DAUGHTER AT BEDSIDE TILL MIDNIGHT. FAMILY UPDATED ON PATIENT STATUS THIS AM.
--- NOTE | 2022-02-22 07:15 | NUR ---
Assumed care of pt at 0700. Report received from José NASCIMENTO. Pt receiving precedex 0.5 mcg/kg/hr. Responsive to verbal stimulus. Vent settings ACPC rate 16, PI 10, PEEP 10, 65% FiO2. RR 22. Tidal volumes 425-475 mL. SpO2 90% or greater.
[2022-02-22 10:40] LABS: Hematocrit 26.1 % (33.0-51.0); Hemoglobin 8.6 g/dL (11.5-16.0)
--- NOTE | 2022-02-22 12:18 | NUR ---
SPOKE WITH INFECTION CONTROL ABOUT PT'S COVID AND FLU ISOLATION. THEY GAVE CLEARANCE FOR PT TO BE REMOVED FROM BOTH PRECAUTIONS.
--- NOTE | 2022-02-22 13:17 | NUR ---
Spiritual Care Visit. Pt. is resting and non responsive. Pts. family are present and welcome my visit. Family verbalizes the Pts. health has made a turn for the worse, and other family members are en route to be with Pt. Rapport is established. Family verbalized gratitude for the spiritual care visit. Will remain available to the family.
[2022-02-22 16:06] LABS: BASOPHILS ABSOLUTE AUTO 0.03 K/mm3 (0.00-0.23); BASOPHILS PERCENT AUTO 0 % (0-2); EOSINOPHILS PERCENT AUTO 0 % (0-6); MONOCYTES PERCENT AUTO 4 % (4-13); RDW Coefficient Variation 18.3 % (11.7-14.2)
[2022-02-22 16:11] LABS: Hematocrit 27.5 % (33.0-51.0); IMMATURE GRAN ABSOLUTE AUTO 0.76 K/mm3 (0.00-0.10); IMMATURE GRAN PERCENT AUTO 5 % (0-1); LYMPHOCYTES ABSOLUTE AUTO 0.11 K/mm3 (0.84-5.20); LYMPHOCYTES PERCENT AUTO 1 % (21-46); Mean Corpuscular HGB 28.9 pg (26.0-34.0); Mean Corpuscular HGB Conc 32.7 g/dL (31.5-36.5); Mean Corpuscular Volume 88 fL (80-100); Mean Platelet Volume 10.4 fL (9.1-12.4); NEUTROPHILS ABSOLUTE AUTO 14.01 K/mm3 (1.96-9.15); NEUTROPHILS PERCENT AUTO 90 % (41-73); Platelet Count 320 K/mm3 (150-400); RDW Standard Deviation 58.1 fL (35.1-46.3); Red Blood Cell Count 3.11 M/mm3 (3.80-5.20); White Blood Cell Count 15.51 K/mm3 (4.00-11.30)
[2022-02-22 16:29] LABS: Bun/Creatinine Ratio 46.9 (12.0-20.0); Calcium, Blood 7.7 mg/dL (8.5-10.1); Creatinine, Blood 0.43 mg/dL (0.40-1.00); Potassium, Blood 4.9 mmol/L (3.5-5.5)
--- NOTE | 2022-02-22 17:08 | NUR ---
Case Conference Note Spoke with Dr Cabrera and Primary RN Hillary. Discussed case and concerns. Careteam and family considering moving forward with comfort care as Pt is declining. Met with daughters out in tom. Offered therapeutic and emotional support. Listened as daughters reports family is on board with comfort care and potentially as early as tomorrow. Listened as family reports Pt has moments of being lucid but most of the time she is sleeping. Continued therapeutic listening and anwered questions. Family expresses appreciation and report no other concerns at this time. Palliative Care will remain available for therapeutic and supportive visits.
--- NOTE | 2022-02-22 18:15 | NUR ---
SUMMARY Neuro: Pt often sedated and responsive only to verbal stimlulus or pressure caused by care activities. When pt responds, she follows directions, appears calm and recognizes care staff and family. Precedex initially 0.5 mcg/kg/hr but increased to 0.8 mcg/kg/hr after patient was contiuously coughing despite giving pain and anxiety control meds. Pt seems to either be sedated or awake but reporting pain or shortness of breath. Pt often tachypneic and frequently coughing while awake. Resp: Vent settings ACPC rate - 16, PI - 10, PEEP 10, FiO2 65%. TV and RR dependent on pt's level of alerness/anxiety. RR 22-26 with tidal volumes 450-500 mL while sedated. RR 36-40 with tidal volumes 275-300 mL when awake. Scant secretions suctioned from trach, which is and improvement compared to previous day shift. Trach inner cannula changed today during trach care. Trach ties changed as well. Cardiac: Sinus rhythm, rate dependent on level of alertness. HR 70s while sedated and 95-110 while awake. BP stable. GI: Pt tolerating bolus feeds well. No reports of nausea today. No BM today - senna/docusate and miralax given. : Iraida urine output from lloyd. Skin: Unchanged from initial assessment. Psychsocial: Pt's daughters Tanvir and Debbie in to see patient. Pleasant and cooperative with patient's care. Dr Cabrera in several times today to talk to family about goals of care for this patient. Family has verbalized to this RN interest in persuing comfort measures for this patient. Pt's spouse stated he does not want this to happen until tomorrow morning because there are several other family memebers he would like to offer the chance to visit with
--- NOTE | 2022-02-22 18:25 | NUR ---
LABS/ORDERS 2 units PRBCs ordered this shift. Discussed with Dr Cabrera and plan to recheck H&H. Hgb improved from 7.1 to 9.0 without administering blood (previous day Hgb was 9.3 - pt has no signs of active bleeding). Order for D5 also given this morning. On recheck, pt's sodium went from 150 to 135 (previous day sodium was 136) without any additional intervention as D5 was held per Dr Cabrera. Per Dr Cabrera, no additional rechecks required until tomorrow morning.
--- NOTE | 2022-02-22 19:40 | NUR ---
ASSUMED CARE OF PT AT 1915. REPORT RECEIVED AT BEDSIDE. PT PRESENTS IN BED. TRACH TO VENT. PT ACKNOWLEDGES PAIN AND IS MEDICATED WITH 2 MG MORPHINE. PT NODS HEAD 'YES' TO AFFECTIVENESS. WILL REVIEW CHART AND PLAN OF CARE FOR THIS PT.
--- NOTE | 2022-02-22 21:15 | NUR ---
PT TRANSFERRED TO ROOM 326. REPORT GIVEN. PT LEAVES ICU AT 2044.
[2022-02-23 05:29] LABS: BASOPHILS ABSOLUTE AUTO 0.02 K/mm3 (0.00-0.23); BASOPHILS PERCENT AUTO 0 % (0-2); EOSINOPHILS PERCENT AUTO 0 % (0-6); Hematocrit 26.1 % (33.0-51.0); Hemoglobin 8.5 g/dL (11.5-16.0); IMMATURE GRAN ABSOLUTE AUTO 0.79 K/mm3 (0.00-0.10); IMMATURE GRAN PERCENT AUTO 5 % (0-1); LYMPHOCYTES ABSOLUTE AUTO 0.11 K/mm3 (0.84-5.20); LYMPHOCYTES PERCENT AUTO 1 % (21-46); MONOCYTES ABSOLUTE AUTO 0.91 K/mm3 (0.16-1.47); MONOCYTES PERCENT AUTO 5 % (4-13); Mean Corpuscular HGB 28.8 pg (26.0-34.0); Mean Corpuscular HGB Conc 32.6 g/dL (31.5-36.5); Mean Corpuscular Volume 89 fL (80-100); Mean Platelet Volume 10.8 fL (9.1-12.4); NEUTROPHILS ABSOLUTE AUTO 14.95 K/mm3 (1.96-9.15); NEUTROPHILS PERCENT AUTO 89 % (41-73); Platelet Count 301 K/mm3 (150-400); RDW Coefficient Variation 18.1 % (11.7-14.2); RDW Standard Deviation 57.2 fL (35.1-46.3); Red Blood Cell Count 2.95 M/mm3 (3.80-5.20); White Blood Cell Count 16.78 K/mm3 (4.00-11.30)
[2022-02-23 05:45] LABS: Albumin, Blood 1.7 g/dL (3.4-5.0); Anion Gap 4 mmol/L (6-16); Blood Urea Nitrogen 19 mg/dL (8-24); Bun/Creatinine Ratio 40.1 (12.0-20.0); CO2, Blood 32 mmol/L (21-32); Calcium, Blood 7.9 mg/dL (8.5-10.1); Chloride, Blood 102 mmol/L (98-108); Creatinine, Blood 0.47 mg/dL (0.40-1.00); Glomerular Filtration Rate 100 (60-); Glucose, Blood 129 mg/dL (70-99); Magnesium, Blood 2.4 mg/dL (1.6-2.4); Phosphorus, Blood 2.5 mg/dL (2.5-4.9); Potassium, Blood 4.7 mmol/L (3.5-5.5); Sodium, Blood 138 mmol/L (136-145)
--- NOTE | 2022-02-23 06:30 | NUR ---
PT HAS BEEN ABLE TO REST SOME THIS SHIFT. HAS HAD THREE BOWEL MOVEMENTS THIS NIGHT. NO CHANGES MADE TO VENT SETTINGS. PT REMAINS ON 0.8 MCG'S PRECEDEX FOR SEDATION AND VENT TOLERANCE.
--- NOTE | 2022-02-23 10:03 | NUR ---
Spiritual Care Visit Pt. is awake, and although she could not audibly speak welcomed my visit with a smile. Previous spiritual care attempts have been paused because the Pt. was not responsive. Today, Pt. is lucid and responsive, and non-verbally acknowledged affirmatively my presence. Established rapport. Prayed with Pt. Pt. displayed mariano and peace with the prayer. Pt. non-verbally expressed gratitude for the spiritual care visit with a smile and nod. Soon after other family members arrived. Daughter verbalized gratitude for the spiritual care for the Pt. Will remain available to the family.
--- NOTE | 2022-02-23 14:10 | NUR ---
INCREASED RR/ PAIN PT WITH CONTINUED PAIN DESPITE PRN MEDS PER EMAR. RR CONSISTENTLY MID 40'S. DR MEDINA CALLED AND CAME TO BEDSIDE TO SEE PT. PT RESTLESS/ANXIOUS AND POINTING TO TRACH WHEN ASKED ABOUT PAIN. PT GIVEN ADDITIONAL ONE TIME DOSE OF 4MG IV MORPHINE. PRECEDEX INCREASED TO 1.4 MCG/KG/HR. PT FAMILY BACK AT BEDSIDE AT THIS TIME. PT NOW RESTING QUIETLY AND RR 30. PT FAMILY UPDATED. WILL CONTINUE TO MONITOR.
--- NOTE | 2022-02-23 17:39 | NUR ---
SHIFT SUMMARY NO ACUTE CHANGES THIS SHIFT. PT REMAINS ON VENT SETTINGS PRESSURE CONTROL 10, RR 16, PEEP 10, FIO2 60% VIA TRACH. PT WITH MINIMAL SECRETIONS WITH TRACH SUCTION THIS SHIFT. WHEN PT IS AWAKE, PT IS ALERT, ORIENTED, AND FOLLOWS DIRECTIONS APPROPRIATELY. PT IS ABLE TO MOUTH WORDS TO COMMUNICATE WELL. PT LIGHTLY SEDATED WITH PRECEDEX AT 1.0 MCG/KG/HR AT THIS TIME. PT WITH CONTINUED PAIN AT TRACH SITE. PT MED PER EMAR. PT WITH PERIOD OF RESTLESSNESS/ANXEITY THIS SHIFT. PICC TO JOE REMAINS C/D/I, NS INFUSING TKO. PEG TUBE REMAINS C/D/I WITH BOLUS FEEDS TOLERATED WELL THIS SHIFT. PT WITH FREQUENT LARGE AMOUNT OF LIQUID STOOL OUTPUT THIS MORNING. RECTAL TUBE PLACED. FRIEDMAN TEMP PROBE REMAINS IN PLACE WITH YELLOW URINE OUTPUT NOTED. MULTIPLE PT FAMILY MEMBERS INCLUDING DAUGHTERS AND PT SPOUSE AT BEDSIDE THROUGHOUT THE DAY. AFTER DISCUSSIONS BETWEEN FAMILY AND DR MEDINA, PT FAMILY IS PLANNING TRANSITIONING TO COMFORT CARE IN THE COMING DAYS, BUT WILL CONTINUE FULL TREATMENT AT THIS TIME. VITAL SIGNS STABLE. WILL CONTINUE TO MONITOR AND REPORT OFF TO ONCOMING RN.
--- NOTE | 2022-02-23 20:00 | NUR ---
ASSUMED CARE OF PT AT 1900. REPORT RECEIVED AT BEDSIDE. PT PRESENTS IN BED. VENT TO TRACH. PRESSURE SUPPORT. MAINTAINING SATURATIONS > 90 PERCENT. PT INDICATES SHE IS HAVING BACK AND NECK DISCOMFORT. MEDICATED PT WITH 4 MG MORPHINE, AND FOLLOWED WITH 500 MG TYLENOL AND HYDROCODONE. WILL REVIEW CHART AND PLAN OF CARE FOR THIS PT.
--- NOTE | 2022-02-24 07:16 | NUR ---
PT HAS BEEN MEDICATED TWICE WITH HYDROCODONE/APAP AND SINGLE DOSE TYLENOL FOR DISCOMFORT. PT NODS HEAD 'YES' TO AFFECTIVENESS OF PAIN MANAGEMENT. PT HAS TOLERATED Q 2 HOUR TURNS IN BED. [place] HAS HAD SMALL AMOUNT OF LEAKAGE WHICH PT TOLERATES CLEANING. PRECEDEX HAS BEEN TITRATED DOWN TO 0.7 MCG'S. NO ANXIOUSNESS TO NOTE THROUGHOUT SHIFT. PT AWAKENS EASILY AND IS ABLE TO ASSIST WITH TURNS IN BED.
--- NOTE | 2022-02-24 11:14 | NUR ---
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 PT AND HER FAMILY WISH TO PROCEED WITH COMFORT CARE AT THIS TIME. PT REMAINS ON VENT TO TRACH AT THIS TIME. PLAN TO TRANSITION PT TO TRACH COLLAR 02 AT TIME OF INITIATING COMFORT CARE ORDERS AND MEDS PER REQUEST OF FAMILY AND DR MEDINA. PT RESTING COMFORTABLY AT THIS TIME. AWAITING COMFORT CARE ORDERS AT THIS TIME.
--- NOTE | 2022-02-24 13:23 | NUR ---
COMFORT CARE PT WITH ALL FAMILY AT BEDSIDE. REQUESTED TO INITIATE COMFORT CARE MEASURES. PT MEDICATED WITH MORPHINE AND ATIVAN PER EMAR. PT TAKEN OFF VENT AT 1315 AND PLACED ON 5L 02 VIA TRACH COLLAR. WILL CONTINUE TO MONITOR.
--- NOTE | 2022-02-24 18:11 | NUR ---
SHIFT SUMMARY NO ACUTE CHANGES AT THIS TIME. PT REMAINS ON 3L 02 VIA TRACH COLLAR. PT WITH PRECEDEX INFUSING AT 0.7 MG/KG/HR AND PT MED PER EMAR WITH MORPHINE AND ATIVAN PRN. PT APPEARS COMFORTABLE AT THIS TIME. PT SPOUSE AND OTHER FAMILY REMAIN AT BEDSIDE. WILL CONTINUE TO MONITOR AND REPORT OFF TO ONCOMING RN.
--- NOTE | 2022-02-24 20:00 | NUR ---
ASSUMED CARE OF PT AT 1900. REPORT RECEIVED AT BEDSIDE. PT PRESENTS IN BED. TRACH COLLAR WITH O2 FLOW 3 L/M. PT IN NO APPARENT DISTRESS. FAMILY AT BEDSIDE. CARE AND COMFORT TEACHING DONE. WILL REVIEW CHART AND PLAN OF CARE FOR THIS PT.
--- NOTE | 2022-02-24 21:01 | NUR ---
MEDICATED PT WITH 4 MG MORPHINE PRECURSOR WITH PAIN MANAGEMENT. PT IN NO APPARENT DISTRESS AT THIS TIME.
--- NOTE | 2022-02-25 02:04 | NUR ---
PT HAS BEEN MEDICATED WITH 4 MG MORPHINE AGAIN. PT IN NO APPARENT DISTRESS. FAMILY REMAINS AT BEDSIDE.
--- NOTE | 2022-02-25 03:30 | NUR ---
PT HAS THIS MORNING AT 0314. PT WITHOUT PULSE, AUSCULTATED HEART BEAT AND NO RESPIRATIONS FOR > 2 MINUTES. FAMILY AT BEDSIDE. PRAYER SHARED WITH FAMILY. ALLOWED TIME FOR GRIEVING. PROVIDED SUPPORT.
== END 2022-02-25 03:14 | DRG 4 ==
LOC: ICUW 14:55 → MEDS 14:55 → PCU 02-01 11:04 → ICUW 02-05 10:02
PROVIDERS: Family Medicine; Internal Medicine; Internal Medicine Critical Care Medicine; ADMIT Family Medicine
PROC: 0B9F8ZX Drainage of Right Lower Lung Lobe, Via Natural or Artificial Opening Endoscopic, Diagnostic (ICD-10-PCS; 2022-01-29)
PROC: 0B9C8ZX Drainage of Right Upper Lung Lobe, Via Natural or Artificial Opening Endoscopic, Diagnostic (ICD-10-PCS; 2022-01-29)
PROC: 0B9H8ZX Drainage of Lung Lingula, Via Natural or Artificial Opening Endoscopic, Diagnostic (ICD-10-PCS; 2022-01-29)
PROC: 0B110F4 Bypass Trachea to Cutaneous with Tracheostomy Device, Open Approach (ICD-10-PCS; 2022-02-05)
PROC: 0BH18EZ Insertion of Endotracheal Airway into Trachea, Via Natural or Artificial Opening Endoscopic (ICD-10-PCS; 2022-02-05)
PROC: 3E033XZ Introduction of Vasopressor into Peripheral Vein, Percutaneous Approach (ICD-10-PCS; 2022-02-05)
PROC: 02HV33Z Insertion of Infusion Device into Superior Vena Cava, Percutaneous Approach (ICD-10-PCS; 2022-02-05)
PROC: 5A1955Z Respiratory Ventilation, Greater than 96 Consecutive Hours (ICD-10-PCS; 2022-02-05)
PROC: XW0DXM6 Introduction of Baricitinib into Mouth and Pharynx, External Approach, New Technology Group 6 (ICD-10-PCS; 2022-02-07)
PROC: 30233N1 Transfusion of Nonautologous Red Blood Cells into Peripheral Vein, Percutaneous Approach (ICD-10-PCS; principal; 2022-02-08)
PROC: 0DH64UZ Insertion of Feeding Device into Stomach, Percutaneous Endoscopic Approach (ICD-10-PCS; 2022-02-13)
PROC: 30233N1 Transfusion of Nonautologous Red Blood Cells into Peripheral Vein, Percutaneous Approach (ICD-10-PCS; 2022-02-21)
DX: U07.1 COVID-19 (principal); I63.81 Other cerebral infarction due to occlusion or stenosis of small artery; J12.82 Pneumonia due to coronavirus disease 2019; J69.0 Pneumonitis due to inhalation of food and vomit; J80 Acute respiratory distress syndrome; Z66 Do not resuscitate; Z28.21 Immunization not carried out because of patient refusal; Z51.5 Encounter for palliative care; F41.1 Generalized anxiety disorder; M06.9 Rheumatoid arthritis, unspecified; E03.9 Hypothyroidism, unspecified; J43.9 Emphysema, unspecified; G47.33 Obstructive sleep apnea (adult) (pediatric); K22.89 Other specified disease of esophagus; M41.9 Scoliosis, unspecified; M79.7 Fibromyalgia; Z87.891 Personal history of nicotine dependence; Z90.710 Acquired absence of both cervix and uterus; Z98.890 Other specified postprocedural states; Z88.8 Allergy status to other drugs, medicaments and biological substances; Z79.51 Long term (current) use of inhaled steroids; Z79.899 Other long term (current) drug therapy
CPT/HCPCS: 0241U; 31500; 31502; 31720; 36415; 36430; 36569; 51702; 70450; 71045; 71046; 71250; 71260; 74176; 74220; 76705; 80048; 80053; 80069; 80202; 81001; 82330; 82728; 82803; 82947; 82977; 83540; 83550; 83735; 83880; 84100; 84145; 84484; 85014; 85018; 85025; 85379; 85610; 85651; 85730; 86037; 86160; 86225; 86235; 86431; 86606; 86850; 86900; 86901; 86923; 87040; 87070; 87071; 87077; 87086; 87102; 87186; 87205; 87252; 87254; 87305; 87486; 87493; 87541; 87581; 87801; 88108; 88312; 92610; 93005; 93010; 93306; 93308; 93321; 93970; 94002; 94003; 94640; 94660; 94664; 94667; 94668; 94760; 94762; 97110; 97162; 97166; 97530; 97535; A9270; C1751; C9113; C9399; J0171; J0290; J0610; J0692; J0696; J1644; J1650; J1940; J1956; J2060; J2185; J2250; J2270; J2370; J2405; J2543; J2550; J2704; J2765; J2920; J2930; J3010; J3370; J3475; J3480; J7030; J7040; J7050; J7060; J7120; J7512; J8610; P9016; P9047; Q9967; U0003; U0004

== ENCOUNTER → 2022-01-23 | Outpatient (CLI) | payer OTHER ==
[2022-01-23 12:51] LABS: BASOPHILS ABSOLUTE AUTO 0.02 K/mm3 (0.00-0.23); BASOPHILS PERCENT AUTO 0 % (0-2); EOSINOPHILS ABSOLUTE AUTO 0.01 K/mm3 (0.00-0.68); EOSINOPHILS PERCENT AUTO 0 % (0-6); Hematocrit 32.1 % (33.0-51.0); IMMATURE GRAN ABSOLUTE AUTO 0.12 K/mm3 (0.00-0.10); IMMATURE GRAN PERCENT AUTO 1 % (0-1); LYMPHOCYTES PERCENT AUTO 6 % (21-46); MONOCYTES ABSOLUTE AUTO 1.13 K/mm3 (0.16-1.47); MONOCYTES PERCENT AUTO 10 % (4-13); Mean Corpuscular HGB 29.8 pg (26.0-34.0); Mean Corpuscular HGB Conc 34.3 g/dL (31.5-36.5); Mean Corpuscular Volume 87 fL (80-100); Mean Platelet Volume 9.5 fL (9.1-12.4); NEUTROPHILS ABSOLUTE AUTO 9.49 K/mm3 (1.96-9.15); NEUTROPHILS PERCENT AUTO 83 % (41-73); Platelet Count 388 K/mm3 (150-400); RDW Coefficient Variation 14.1 % (11.7-14.2); RDW Standard Deviation 44.4 fL (35.1-46.3); Red Blood Cell Count 3.69 M/mm3 (3.80-5.20); White Blood Cell Count 11.47 K/mm3 (4.00-11.30)
[2022-01-23 13:10] LABS: Albumin, Blood 2.4 g/dL (3.4-5.0); Albumin/Globulin Ratio 0.5 (0.8-1.8); Bilirubin, Total 0.5 mg/dL (0.1-1.0); Bun/Creatinine Ratio 8.8 (12.0-20.0); Calcium, Blood 8.6 mg/dL (8.5-10.1); Creatinine, Blood 0.68 mg/dL (0.40-1.00); Globulin, Blood 4.4 g/dL (2.2-4.0); Magnesium, Blood 1.4 mg/dL (1.6-2.4); Potassium, Blood 3.5 mmol/L (3.5-5.5); Total Protein, Blood 6.8 g/dL (6.4-8.2)
== END | disposition home or self-care (01) ==
LOC: LAB SHORT 12:34 → LAB 12:34
PROVIDERS: Family Medicine
DX: J18.9 Pneumonia, unspecified organism (principal)
CPT/HCPCS: 80053; 83605; 83735; 85025